=== PATIENT | male | born 1965 | race Caucasian/White ===

== ENCOUNTER 2021-02-26 07:27 | Outpatient (REF) | payer OTHER, SELFPAY ==
[2021-02-26 12:02] LABS: Estimated Average Glucose 352 mg/dL; Hemoglobin A1c % 13.9 %
== END 2021-02-26 07:28 | disposition home or self-care (01) ==
LOC: HO.HMGCLDS 07:27
PROVIDERS: PCP Nurse Practitioner Family; Visit Provider Nurse Practitioner Gerontology
DX: E11.42 Type 2 diabetes mellitus with diabetic polyneuropathy (principal)
CPT/HCPCS: 36415; 83036

== ENCOUNTER → 2021-03-02 07:26 | Outpatient (BNVA) | payer OTHER, SELFPAY | PROVIDERS: PCP Nurse Practitioner Family; Visit Provider Nurse Practitioner Gerontology | DX: E11.42 Type 2 diabetes mellitus with diabetic polyneuropathy (principal); E78.1 Pure hyperglyceridemia; E78.5 Hyperlipidemia, unspecified | CPT/HCPCS: 82947 ==

== ENCOUNTER 2021-03-20 11:31 | Outpatient (REF) | payer OTHER, SELFPAY ==
[2021-03-20 14:29] LABS: Creatinine Urine 111.81 mg/dL
[2021-03-20 14:32] LABS: Alanine Aminotransferase 18 U/L (0-40); Albumin Level 4.5 g/dL (3.5-5.0); Alkaline Phosphatase 65 U/L (39-117); Anion Gap 14 (12-20); Aspartate Amino Transferase 16 U/L (5-37); Bilirubin Total 0.4 mg/dL (0.0-1.0); Blood Urea Nitrogen 13 mg/dL (9-16); Calcium 9.6 mg/dL (8.4-10.2); Carbon Dioxide 26 mmol/L (22-29); Chloride 102 mmol/L (96-108); Cholesterol 164 mg/dL; Estimated Glomerular Filt Rate > 60; Glucose Fasting 161 mg/dL (60-99); HDL Cholesterol 53 mg/dL; LDL Cholesterol Calculated 89 mg/dl; Potassium 4.2 mmol/L (3.3-5.1); Sodium 138 mmol/L (135-145); Total Protein 7.1 g/dL (6.5-8.0); Triglycerides 111 mg/dL
[2021-03-21 06:12] LABS: LDL Cholesterol Direct 94 mg/dL (<100)
== END 2021-03-20 11:32 | disposition home or self-care (01) ==
LOC: HO.HMGCLDS 11:31
PROVIDERS: PCP Nurse Practitioner Family; Visit Provider Nurse Practitioner Gerontology
DX: E11.42 Type 2 diabetes mellitus with diabetic polyneuropathy (principal)
CPT/HCPCS: 36415; 80053; 80061; 82043; 83721

== ENCOUNTER → 2021-05-25 07:47 | Outpatient (BNVA) | payer OTHER, SELFPAY | PROVIDERS: PCP Nurse Practitioner Family; Visit Provider Nurse Practitioner Gerontology | DX: E11.42 Type 2 diabetes mellitus with diabetic polyneuropathy (principal); E78.1 Pure hyperglyceridemia; E78.5 Hyperlipidemia, unspecified | CPT/HCPCS: 82947 ==

== ENCOUNTER 2021-07-24 14:14 | Outpatient (REF) | payer OTHER, SELFPAY ==
--- NOTE | ~2021-07-24 | XR_ITS ---
EXAMINATION: XR ANKLE, RIGHT CLINICAL INFORMATION: Pain COMPARISON: Previous x-ray November 2012 TECHNIQUE: AP, lateral, and mortise views of the right ankle. FINDINGS: Bone alignment is normal. No acute fracture or dislocation is seen. There are well-corticated soft tissue ossifications inferior to the medial malleolus likely related to old trauma. There is mild arthritis at the tibiotalar joint. Ankle mortise is otherwise normal. There is an anterior talar osteophyte. There are small calcaneal spurs. Soft tissues are otherwise unremarkable. XR/XR ankle RT min 3V IMPRESSION: Evidence of old trauma to the medial ankle and mild degenerative changes.
== END 2021-07-24 14:15 | disposition home or self-care (01) ==
LOC: HO.HMGCX 14:14
PROVIDERS: PCP Nurse Practitioner Family; Visit Provider Nurse Practitioner Family
DX: M25.571 Pain in right ankle and joints of right foot (principal)
CPT/HCPCS: 73610

== ENCOUNTER → 2021-10-07 07:26 | Outpatient (BNVA) | payer OTHER, SELFPAY | PROVIDERS: PCP Nurse Practitioner Family; Visit Provider Nurse Practitioner Gerontology | DX: E11.42 Type 2 diabetes mellitus with diabetic polyneuropathy (principal); E78.1 Pure hyperglyceridemia; E78.5 Hyperlipidemia, unspecified | CPT/HCPCS: 82947 ==

== ENCOUNTER 2022-05-27 07:22 | Outpatient (REF) | payer OTHER, SELFPAY ==
[2022-05-27 11:43] LABS: Alanine Aminotransferase 25 U/L (0-40); Albumin Level 4.7 g/dL (3.5-5.0); Alkaline Phosphatase 72 U/L (39-117); Anion Gap 16 (12-20); Aspartate Amino Transferase 20 U/L (5-37); Bilirubin Total 0.6 mg/dL (0.0-1.0); Blood Urea Nitrogen 19 mg/dL (9-16); Calcium 9.9 mg/dL (8.4-10.2); Carbon Dioxide 26 mmol/L (22-29); Chloride 103 mmol/L (96-108); Cholesterol 228 mg/dL; Estimated Glomerular Filt Rate > 60; Glucose Fasting 183 mg/dL (60-99); HDL Cholesterol 40 mg/dL; Potassium 5.3 mmol/L (3.3-5.1); Sodium 140 mmol/L (135-145); Total Protein 7.7 g/dL (6.5-8.0); Triglycerides 482 mg/dL
[2022-05-27 12:12] LABS: Creatinine Urine 89.08 mg/dL; Microalbum/Creatinine Ratio Ur 7.8 ug/mg cr
[2022-05-29 01:56] LABS: LDL Cholesterol Direct 109 mg/dL (<100)
== END 2022-05-27 07:23 | disposition home or self-care (01) ==
LOC: HO.HMGCLDS 07:22
PROVIDERS: PCP Nurse Practitioner Family; Visit Provider Nurse Practitioner Gerontology
DX: E11.42 Type 2 diabetes mellitus with diabetic polyneuropathy (principal)
CPT/HCPCS: 36415; 80053; 80061; 82043; 83721

== ENCOUNTER 2022-06-10 06:46 | Outpatient (REF) | payer OTHER, SELFPAY ==
[2022-06-10 11:38] LABS: Estimated Average Glucose 237 mg/dL; Hemoglobin A1c % 9.9 %
[2022-06-10 11:40] LABS: Potassium 4.3 mmol/L (3.3-5.1)
[2022-06-10 11:47] LABS: Anion Gap 15 (12-20); Carbon Dioxide 27 mmol/L (22-29); Chloride 104 mmol/L (96-108); Potassium 4.3 mmol/L (3.3-5.1); Sodium 142 mmol/L (135-145)
[2022-06-10 11:58] LABS: Prostate Specific Antigen Scr 4.57 ng/mL (<0.05-4.0)
== END 2022-06-10 06:47 | disposition home or self-care (01) ==
LOC: HO.HMGCLDS 06:46
PROVIDERS: Internal Medicine; PCP Nurse Practitioner Family; Visit Provider Nurse Practitioner Family
DX: E11.42 Type 2 diabetes mellitus with diabetic polyneuropathy (principal); E87.5 Hyperkalemia; R97.20 Elevated prostate specific antigen [PSA]; Z12.5 Encounter for screening for malignant neoplasm of prostate
CPT/HCPCS: 36415; 80051; 83036; 84132; 84153

== ENCOUNTER 2022-08-17 10:26 | Outpatient (REF) | payer OTHER, SELFPAY ==
[2022-08-17 10:33] VITALS: BMI 29.6
[2022-08-17 10:34] VITALS: BP 116/76; PULSE 73; RESP 16; TEMP 22.4; O2SAT 98
[2022-08-17 11:22] VITALS: BP 117/76; PULSE 74; RESP 16; O2SAT 97
--- NOTE | 2022-08-17 11:45 | P.OP_ITS ---
Operative Note Operative Note Date of Service: 08/17/22 Narrative: Preoperative diagnosis:Pilar cyst Postoperative diagnosis:same Procedure:Excision of pilar cyst Surgeon: Trey Fields MD Data Entry Technician: none Anesthesia:Lidocaine 2% with epi Indications for procedure:56 year old male with 2 cm pilar cyst of the midline frontal scalp Operative findings:2 cm pilar cyst frontal scalp Specimen:pilar cyst Estimated blood loss:<1 ml Complications:none Procedure details: Patient was brought to the minor surgery suite placed in a supine position. The site of surgery was confirmed by the patient in the frontal scalp. After ensuring informed consent, the skin was prepped with Betadine and draped in a sterile fashion. Local anesthesia was then infiltrated in a longitudinal fashion over the cyst. Incision was then made with a 15 blade and carried out through subcutaneous tissue up to the cyst wall. Gentle dissection with a mosquito hemostat was then used to dissect the cyst from the surrounding subcutaneous tissue. The cyst was completely excised intact and sent to pathology for further examination. Light pressure was held to maintain hemostasis. Skin was then closed using interrupted 3-0 Prolene sutures. Bacitracin was then applied. The patient tolerated the procedure well. He was discharged to home in stable condition.
== END 2022-08-17 10:27 | disposition home or self-care (01) ==
LOC: HO.MS 10:26
PROVIDERS: PCP Nurse Practitioner Family; Visit Provider Surgery
PROC: (CPT 11422; principal; 2022-08-17 11:00)
DX: L72.11 Pilar cyst (principal)
CPT/HCPCS: 11422; 88304

== ENCOUNTER 2022-09-13 07:21 | Outpatient (REF) | payer OTHER, SELFPAY ==
[2022-09-13 11:30] LABS: MANUAL DIFF FLAG NO
[2022-09-13 11:38] LABS: Appearance Urine Clear; Color Urine Yellow; Glucose Urine UA >=1000 mg/dL (Negative); Leukocyte Esterase Urine Negative (Negative); Nitrite Urine Negative (Negative); PH 5.5 (5.0-9.0); Specific Gravity - Urine >= 1.030 (1.005-1.025); UMIC TRIGGER UACC YES; Urine Blood Negative (Negative); Urine Ketones Negative (Negative); Urine Protein Negative (Neg-Trace)
[2022-09-13 11:44] LABS: Bacteria Urine None Seen (None Seen); Hyaline Casts Urine 0-2 /LPF (0-2); RBC Urine 0-2 /HPF (0-2); Squamous Epithelial Cell Urine 0-2 /HPF (0-2); WBC Urine 0-5 /HPF (0-5)
[2022-09-13 11:49] LABS: Basophils Absolute Auto 0.1 X10*3/uL (0.0-0.2); Basophils Percent Auto 1.7 % (0-2); Eosinophils Absolute Auto 0.1 X10*3/uL (0.0-0.4); Eosinophils Percent Auto 1.4 % (0-4); Hematocrit 41.7 % (42.0-52.0); Hemoglobin 13.5 g/dl (14.0-18.0); Imm Gran Abs Auto 0.02 X10*3/uL (0.00-0.03); Imm Gran Pct Auto 0.5 % (0.0-0.4); Lymphocytes Absolute Auto 1.6 X10*3/uL (1.2-4.9); Lymphocytes Percent Auto 37.1 % (20-40); Mean Corpuscular HGB Conc 32.4 g/dl (31.0-36.0); Mean Corpuscular Hemoglobin 27.9 pg (27.0-33.0); Mean Corpuscular Volume 86.2 fL (80.0-98.0); Mean Platelet Volume 10.8 fL (9.4-12.4); Monocytes Absolute Auto 0.4 X10*3/uL (0.1-1.2); Neutrophils Absolute Auto 2.1 x10*3/uL (2.0-8.3); Neutrophils Percent Auto 49.3 % (45-73); Platelet Count 228 X10*3/uL (160-400); Red Blood Count 4.84 X10*6/uL (4.60-5.80); Red Cell Distribution Width 12.6 % (11.0-16.0); White Blood Count 4.2 X10*3/uL (4.8-10.8)
[2022-09-13 12:15] LABS: Alanine Aminotransferase 24 U/L (0-40); Albumin Level 4.5 g/dL (3.5-5.0); Alkaline Phosphatase 60 U/L (39-117); Anion Gap 14 (12-20); Aspartate Amino Transferase 18 U/L (5-37); Bilirubin Total 0.4 mg/dL (0.0-1.0); Blood Urea Nitrogen 18 mg/dL (9-16); Calcium 9.6 mg/dL (8.4-10.2); Carbon Dioxide 26 mmol/L (22-29); Chloride 106 mmol/L (96-108); Estimated Glomerular Filt Rate > 60; Glucose Fasting 147 mg/dL (60-99); Potassium 4.4 mmol/L (3.3-5.1); Sodium 142 mmol/L (135-145); Total Protein 7.2 g/dL (6.5-8.0)
[2022-09-13 12:31] LABS: Estimated Average Glucose 197 mg/dL; Hemoglobin A1c % 8.5 %
[2022-09-13 12:37] LABS: Alanine Aminotransferase 23 U/L (0-40); Albumin Level 4.4 g/dL (3.5-5.0); Alkaline Phosphatase 55 U/L (39-117); Anion Gap 12 (12-20); Aspartate Amino Transferase 17 U/L (5-37); Bilirubin Total 0.5 mg/dL (0.0-1.0); Blood Urea Nitrogen 17 mg/dL (9-16); Calcium 9.6 mg/dL (8.4-10.2); Carbon Dioxide 27 mmol/L (22-29); Chloride 106 mmol/L (96-108); Cholesterol 156 mg/dL; Estimated Glomerular Filt Rate > 60; Glucose Fasting 142 mg/dL (60-99); HDL Cholesterol 54 mg/dL; LDL Cholesterol Calculated 77 mg/dl; PSA,Total (Free>4and<10) 5.42 ng/mL (0.00-4.00); Potassium 4.4 mmol/L (3.3-5.1); Sodium 141 mmol/L (135-145); Triglycerides 128 mg/dL
[2022-09-13 12:42] LABS: TSH reflex Free T4 2.72 uIU/mL (0.32-4.0)
[2022-09-14 09:10] LABS: Free Prostate Spec Ag 0.8 ng/mL; Percent Free Prostate Spec Ag 16 % (calc) (>25); Prostate Specific Ag Total 4.9 ng/mL (< OR = 4.0)
[2022-09-21 11:57] LABS: Testosterone, Total 565 ng/dL (250-1100)
== END 2022-09-13 07:22 | disposition home or self-care (01) ==
LOC: HO.HMGCLDS 07:21
PROVIDERS: Absent Provider Urology; PCP Nurse Practitioner Family; Visit Provider Nurse Practitioner Family
DX: Z12.5 Encounter for screening for malignant neoplasm of prostate (principal); E11.69 Type 2 diabetes mellitus with other specified complication; E11.42 Type 2 diabetes mellitus with diabetic polyneuropathy; E78.5 Hyperlipidemia, unspecified; N52.1 Erectile dysfunction due to diseases classified elsewhere
CPT/HCPCS: 36415; 80053; 80061; 81001; 83036; 84153; 84154; 84402; 84403; 84443; 85025

== ENCOUNTER 2022-10-20 11:20 | Outpatient (REF) | payer OTHER, SELFPAY ==
[2022-10-20 11:29] VITALS: BP 141/82; PULSE 80; RESP 16; TEMP 36.2; O2SAT 100; BMI 29.6
--- NOTE | 2022-10-20 12:25 | W.PM.OPN ---
Operative Note Operative Note Date of Service: 10/20/22 Narrative: Preoperative diagnosis: Elevated PSA Postoperative diagnosis: Elevated PSA Procedure: 1. transrectal ultrasound measurement of prostate 2. transrectal ultrasound-guided pudendal nerve block 3. transrectal ultrasound-guided prostate biopsy 12 core Surgeon: Dr. Grant Fitch Anesthetic: Local Indications for procedure: Elevated PSA 09/14 4.9 16% Procedure: After informed consent was verified, the patient was brought into the procedure area and lay left-hand side down on the table. Patient identity confirmed. Perioperative antibiotics confirmed. Safety pause time out performed. JULIO performed to dilate rectal sphincter Iodine 10cc with Gel was placed per rectum Ultrasound probe was placed per rectum The prostate was measured in 3 dimensions Total volume equals 55 gm No cystic structures were noted No calcifications were noted at the surgical margin The prostate was otherwise homogeneous in nature An ultrasound-guided pudendal nerve block was performed using 10 cc of 1% lidocaine. 8 cc was placed at the base and 2 cc of the apex. A 12 core biopsy was performed with 6 cores each side. Two cores were taken at the apex, mid and base. Cores were spaced between lateral and medial. He tolerated the procedure well. Was able to ambulate to bathroom after 5 minutes. Printed instructions regarding antibiotic use and common side effects such as low-grade temperature, potential infection and bleeding were given Pathology: 12 core prostate biopsy.
[2022-10-20 12:30] VITALS: BP 133/68; PULSE 81; RESP 16; O2SAT 98
== END 2022-10-20 11:21 | disposition home or self-care (01) ==
LOC: HO.MS 11:20
PROVIDERS: PCP Nurse Practitioner Family; Visit Provider Urology
PROC: (CPT 55700; principal; 2022-10-20 12:00)
DX: R97.20 Elevated prostate specific antigen [PSA] (principal); N42.32 Atypical small acinar proliferation of prostate
CPT/HCPCS: 55700; 76942; 88305; 88344

== ENCOUNTER 2022-12-28 08:01 | Outpatient (REF) | payer OTHER, SELFPAY ==
[2022-12-28 11:39] LABS: MANUAL DIFF FLAG NO
[2022-12-28 11:52] LABS: Basophils Absolute Auto 0.1 X10*3/uL (0.0-0.2); Basophils Percent Auto 1.2 % (0-2); Eosinophils Percent Auto 0.6 % (0-4); Hemoglobin 13.9 g/dl (14.0-18.0); Imm Gran Abs Auto 0.02 X10*3/uL (0.00-0.03); Imm Gran Pct Auto 0.4 % (0.0-0.4); Lymphocytes Absolute Auto 1.6 X10*3/uL (1.2-4.9); Lymphocytes Percent Auto 32.7 % (20-40); Mean Corpuscular HGB Conc 33.1 g/dl (31.0-36.0); Mean Corpuscular Hemoglobin 28.1 pg (27.0-33.0); Mean Platelet Volume 10.8 fL (9.4-12.4); Monocytes Absolute Auto 0.5 X10*3/uL (0.1-1.2); Monocytes Percent Auto 9.1 % (2-11); Neutrophils Absolute Auto 2.8 x10*3/uL (2.0-8.3); Platelet Count 238 X10*3/uL (160-400); Red Blood Count 4.94 X10*6/uL (4.60-5.80); Red Cell Distribution Width 13.2 % (11.0-16.0); White Blood Count 4.9 X10*3/uL (4.8-10.8)
[2022-12-28 12:03] LABS: Appearance Urine Clear; Color Urine Yellow; Glucose Urine UA >=1000 mg/dL (Negative); Leukocyte Esterase Urine Negative (Negative); Nitrite Urine Negative (Negative); Specific Gravity - Urine >= 1.030 (1.005-1.025); UMIC TRIGGER UACC YES; Urine Blood Negative (Negative); Urine Ketones Negative (Negative); Urine Protein Negative (Neg-Trace)
[2022-12-28 12:09] LABS: Estimated Average Glucose 237 mg/dL; Hemoglobin A1c % 9.9 %
[2022-12-28 12:20] LABS: Bacteria Urine None Seen (None Seen); Hyaline Casts Urine 0-2 /LPF (0-2); RBC Urine 0-2 /HPF (0-2); Squamous Epithelial Cell Urine 0-2 /HPF (0-2); WBC Urine 0-5 /HPF (0-5)
[2022-12-28 12:28] LABS: Alanine Aminotransferase 28 U/L (0-40); Albumin Level 4.6 g/dL (3.5-5.0); Alkaline Phosphatase 57 U/L (39-117); Anion Gap 16 (12-20); Aspartate Amino Transferase 20 U/L (5-37); Bilirubin Total 0.7 mg/dL (0.0-1.0); Blood Urea Nitrogen 12 mg/dL (9-16); Calcium 9.7 mg/dL (8.4-10.2); Carbon Dioxide 26 mmol/L (22-29); Chloride 104 mmol/L (96-108); Cholesterol 197 mg/dL; Estimated Glomerular Filt Rate > 60; Glucose Fasting 204 mg/dL (60-99); HDL Cholesterol 46 mg/dL; LDL Cholesterol Calculated 117 mg/dl; Potassium 4.9 mmol/L (3.3-5.1); Sodium 141 mmol/L (135-145); Total Protein 7.3 g/dL (6.5-8.0); Triglycerides 172 mg/dL
[2022-12-28 12:47] LABS: TSH reflex Free T4 2.43 uIU/mL (0.32-4.0)
== END 2022-12-28 08:02 | disposition home or self-care (01) ==
LOC: HO.HMGCLDS 08:01
PROVIDERS: PCP Nurse Practitioner Family; Visit Provider Nurse Practitioner Family
DX: E11.42 Type 2 diabetes mellitus with diabetic polyneuropathy (principal); E78.5 Hyperlipidemia, unspecified
CPT/HCPCS: 36415; 80053; 80061; 81001; 81003; 83036; 84443; 85025

== ENCOUNTER 2022-12-30 08:37 | Day surgery (SDC) | payer OTHER, SELFPAY ==
[2022-12-27 12:18] VITALS: BMI 30.2
--- NOTE | 2022-12-29 13:13 | P.CONAN_ITS ---
Documented by User: Ayana Mendez NP 12/29/22 13:16 HPI - Anesthesia Eval Consult details Narrative: 57yo M for Colonoscopy 12/29/21 - Seen by PCP - Tenderness near hip where previously had shingles. No rash/blisters. PMFSH Active Problems Active Problems: All Active Problems (Updated 12/29/22 @ 11:29 by Trey Gregg, [facility]) Shingles (Acute) Uncontrolled diabetes mellitus with hyperglycemia (Acute) Pain and swelling of right ankle (Acute) Acute pain of right foot (Acute) Gout of right ankle (Acute) Hyperkalemia (Acute) Dyslipidemia (Acute) Screening for prostate cancer (Acute) Screening for colon cancer (Acute) Dermoid cyst of head (Acute) Elevated PSA (Acute) Pilar cyst of scalp (Acute) Family history of cancer (Acute) Erectile dysfunction associated with type 2 diabetes mellitus (Acute) BPH loc w urin obs/LUTS (Acute) LJ (obstructive sleep apnea) (Acute) Type 2 diabetes mellitus with polyneuropathy (Acute) Hyperlipidemia LDL goal <100 (Acute) Hypertriglyceridemia (Acute) Past Medical History Medical History Back pain with history of spinal surgery Bronchitis Hyperlipidemia LDL goal <100 Hyperparathyroidism Hypertriglyceridemia Neuropathy LJ (obstructive sleep apnea) RLS (restless legs syndrome) Tendonitis Type 2 diabetes mellitus with polyneuropathy Family History Family History Father Colon cancer Mother Breast cancer Diabetes mellitus Sister Brain cancer Sister No problems noted. Sister No problems noted. Sister No problems noted. Brother Substance use disorder Brother No problems noted. Brother No problems noted. Son No problems noted. Surgical History Surgical History H/O colonoscopy History of anterior cruciate ligament surgery History of esophagogastroduodenoscopy (EGD) History of rotator cuff surgery Hx of excision of mass Hx of removal of cyst (08/17/22) Social History Social History Housing: House Patient Tobacco Use Status: Former Tobacco user Quit Date: 20 years ago Tobacco use type: Cigarette Cigarettes Per Day: 10 Years Smoked: 15 e-Cigarette/Vaping Use: Never Used Second Hand Smoke Exposure: No Are you DNR?: No Advance Directives: No Advance Directives Information Provided: Yes Nutrition Risks: No Nutritional Risk service: No Current occupational status: employed Current occupation: [employer] Current occupational exposures/hazards: No Cognitive needs: No Hearing needs: No Vision needs: No Meds Allergies Allergy/AdvReac Type Severity Reaction Status Date / Time No Known Allergies Allergy Verified 12/29/22 11:27 [No Known Allergies*] Home Medications Medication Instructions Recorded Confirmed Last Taken Type aspirin 81 mg tablet,delayed 81 mg PO DAILY 10/07/21 12/29/22 Unknown History release (Adult Aspirin Regimen) cetirizine 10 mg tablet (Zyrtec) 10 mg PO DAILY PRN Allergy Symptoms 10/07/21 12/29/22 Unknown History insulin degludec 200 unit/mL (3 40 unit subcut BEDTIME 12/27/22 12/29/22 Unknown History mL) subcutaneous pen trazodone 150 mg tablet 150 mg PO BEDTIME 12/29/22 12/29/22 Unknown History Exam Exam Date and Time: December 29, 2022 1313 Height,Weight and Vital Signs: Height 6 ft 5 in Weight 115.439 kg Pertinent Lab Results Pertinent Lab Results: Laboratory Tests 12/28/22 12/28/22 08:08 08:08 WBC 4.9 Hgb 13.9 L Hct 42.0 Plt Count 238 Sodium 141 Potassium 4.9 Chloride 104 Carbon Dioxide 26 BUN 12 Creatinine 1.16 Assessment and Plan Assessment Anesthesia Assessment: Chart Reviewed Documented by User: Mary Patten MD 12/30/22 09:04 [facility], [facility] Past Medical History Medical History Back pain with history of spinal surgery Bronchitis Hyperlipidemia LDL goal <100 Hyperparathyroidism Hypertriglyceridemia Neuropathy JL (obstructive sleep apnea) RLS (restless legs syndrome) Tendonitis Type 2 diabetes mellitus with polyneuropathy Functional capacity: independent ambulation Family History Family History Father Colon cancer Mother Breast cancer Diabetes mellitus Sister Brain cancer Sister No problems noted. Sister No problems noted. Sister No problems noted. Brother Substance use disorder Brother No problems noted. Brother No problems noted. Son No problems noted. Family history of problems with anesthesia: No Surgical History Surgical History H/O colonoscopy History of anterior cruciate ligament surgery History of esophagogastroduodenoscopy (EGD) History of rotator cuff surgery Hx of excision of mass Hx of removal of cyst (08/17/22) History of Problems with Anesthesia: No Social History Social History Housing: House Patient Tobacco Use Status: Former Tobacco user Quit Date: 20 years ago Tobacco use type: Cigarette Cigarettes Per Day: 10 Years Smoked: 15 e-Cigarette/Vaping Use: Never Used Second Hand Smoke Exposure: No Are you DNR?: No Advance Directives: No Advance Directives Information Provided: Yes Nutrition Risks: No Nutritional Risk service: No Current occupational status: employed Current occupation: [employer] Current occupational exposures/hazards: No Cognitive needs: No Hearing needs: No Vision needs: No Meds Allergies Allergy/AdvReac Type Severity Reaction Status Date / Time No Known Allergies Allergy Verified 12/29/22 11:27 [No Known Allergies*] Home Medications Medication Instructions Recorded Confirmed Last Taken Type aspirin 81 mg tablet,delayed 81 mg PO DAILY 10/07/21 12/29/22 Unknown History release (Adult Aspirin Regimen) cetirizine 10 mg tablet (Zyrtec) 10 mg PO DAILY PRN Allergy Symptoms 10/07/21 12/29/22 Unknown History insulin degludec 200 unit/mL (3 40 unit subcut BEDTIME 12/27/22 12/29/22 Unknown History mL) subcutaneous pen trazodone 150 mg tablet 150 mg PO BEDTIME 12/29/22 12/29/22 Unknown History Exam Airway Mallampati Class: II TM Dist: >3cm Neck ROM: Full Heart: RRR Lungs: CTA Assessment and Plan Final Anesthetic Review Family History of Problems with Anesthesia: No History of Problems with Anesthesia: No NPO: Yes ASA Class: II Final Preanesthetic Review: No Changes in Pt Med Stat, Meds/Allgs Chart Reviewed, Consent Obtained/Reviewed and Anes Risks/Benef Reviewed Patient Risk: Low Procedure Risk: Low Anesthetic Plan Anesthetic Plan: MAC: Disposition: Standard PACU
--- NOTE | 2022-12-30 08:09 | MHC.SHP ---
Pre-Procedural Eval Section A Date of Service: 12/30/22 Section B Chief Complaint: Screening Details of Present Illness: Medical History Back pain with history of spinal surgery Bronchitis Hyperlipidemia LDL goal <100 Hyperparathyroidism Hypertriglyceridemia Neuropathy LJ (obstructive sleep apnea) RLS (restless legs syndrome) Tendonitis Type 2 diabetes mellitus with polyneuropathy Surgical History History of anterior cruciate ligament surgery History of rotator cuff surgery Present Medications: see Short Stay Collaborative assessment Allergies: Allergies Allergy/AdvReac Type Severity Reaction Status Date / Time No Known Allergies Allergy Verified 12/29/22 11:27 [No Known Allergies*] Review of Systems Review of Systems Comment: 10 point ROS negative Exam Exam Comment: Gen appear: No acute distress HEENT: no icterus Chest: No overt resp distress Abd: soft, nontender, nondistended Psych: Stable affect, answering questions appropriately Neuro: A/Ox3 noted to move all extremities spontaneously Ext: no peripheral edema Plan Diagnosis/Plan: Unchanged I have reviewed the history and physical and performed a pertinent physical examination on my patient. No changes have occurred unless specified. Time Spent With Patient Time: Total time managing care of this patient today ____ minutes.
[2022-12-30 08:39] VITALS: BP 114/87; PULSE 78; RESP 17; TEMP 36.7; O2SAT 98
[2022-12-30 08:48] LABS: Glucose, Whole Blood 131 mg/dL (60-115)
--- NOTE | 2022-12-30 08:52 | P.OP_ITS ---
Operative Note Operative Note Date of Service: 12/30/22 Narrative: Procedure: Colonoscopy Indication: Personal history of polyps; Family history of colon cancer Endoscopist: Gay Galdamez MD Anesthesia Provider: Dr Mary Browning Anesthesia type: MAC Instrument: Expert [id number] Consent: Indication, risks vs benefits, and alternatives were discussed with the patient who gave written informed consent to proceed. EKG, pulse, pulse oximetry and blood pressure were monitored throughout the procedure. Please see anesthesia flowsheet. Procedure: The patient was brought to the procedure room and placed in the left lateral decubitus position. IV medications were administered by the anesthesia provider in attendance. A digital rectal exam was performed which was abnormal due to finding of perianal tag. The distal cap was affixed to the tip of the scope and the colonoscope was then inserted through the anus and advanced through the colon to the cecum at 75 cm,and terminal ileum. Mucosa was carefully examined under high definition white light as the instrument was slowly withdrawn in a retrograde panoramic fashion. Retroflexion was performed in ascending colon and rectum. The procedure was not difficult. There were no immediate obvious complications. The quality of the prep was BBPS: 3+3+3 = excellent Withdrawal time 13 minutes. Limitations: No limitations. Findings: Mucosa: Normal to cecum and terminal ileum. Protruding lesions: * 1 sessile polyp of size 8 mm in ascending colon. Cold snare polypectomy was performed. The polyp was completely removed but not retrieved. * 1 sessile polyp of size 6 mm in transverse colon. Cold snare polypectomy was performed. The polyp was completely removed and retrieved. * Medium internal hemorrhoids without stigmata of recent bleeding. Excavated lesions: * Moderate diverticulosis of left sided colon. Impression: 1. Normal colon and terminal ileum mucosa 2. Total of 2 polyps removed from ascending (not retrieved) and transverse colon. 3. Diverticulosis 4. Internal hemorrhoids Recommendations: - Follow path results. - Repeat colonoscopy in 5 years due to fam hx of CRC.
[2022-12-30] MEDS: Lactated Ringers 1,000 ML 100 ML IVCONT (09:05)
[2022-12-30 10:38] VITALS: BP 105/58; PULSE 81; RESP 16; TEMP 36.4; O2SAT 98
[2022-12-30 10:53] VITALS: BP 111/76; PULSE 77; RESP 18; TEMP 36.4; O2SAT 98
--- NOTE | 2022-12-30 13:28 | HO.POSTANES ---
Post Anesthesia Evaluation Post Anesthesia Evaluation Vital Signs: Vital Signs Temp Pulse Resp BP Pulse Ox O2 Del Method 12/30/22 10:53 97.6 F 77 18 111/76 98 Room Air 12/30/22 10:38 97.6 F 81 16 105/58 L 98 Room Air 12/30/22 08:39 98.1 F 78 17 114/87 98 Room Air Anesthesia: Monitored Mental Status: Awake Pain Control: Satisfactory Nausea/Vomiting: None Hydration: Adequate Anesthesia-Related Issues: No Anes. Related Issues
== END 2022-12-30 11:11 | disposition home or self-care (01) ==
PROVIDERS: PCP Nurse Practitioner Family; Visit Provider Internal Medicine
PROC: 0DJD8ZZ Inspection of Lower Intestinal Tract, Via Natural or Artificial Opening Endoscopic (ICD-10-PCS; CPT 45378; principal; 2022-12-30 09:50)
DX: Z12.11 Encounter for screening for malignant neoplasm of colon (principal); Z86.010 Personal history of colon polyps; Z80.0 Family history of malignant neoplasm of digestive organs; D12.3 Benign neoplasm of transverse colon; K63.5 Polyp of colon; K57.30 Diverticulosis of large intestine without perforation or abscess without bleeding; K64.8 Other hemorrhoids; K64.4 Residual hemorrhoidal skin tags; K21.9 Gastro-esophageal reflux disease without esophagitis; E78.1 Pure hyperglyceridemia; E21.3 Hyperparathyroidism, unspecified; E78.5 Hyperlipidemia, unspecified; E11.42 Type 2 diabetes mellitus with diabetic polyneuropathy; G47.33 Obstructive sleep apnea (adult) (pediatric); G25.81 Restless legs syndrome; Z79.85 Long-term (current) use of injectable non-insulin antidiabetic drugs; Z79.82 Long term (current) use of aspirin; Z87.891 Personal history of nicotine dependence; Z79.899 Other long term (current) drug therapy
CPT/HCPCS: 45385; 82947; 88305

== ENCOUNTER → 2023-01-18 07:56 | Outpatient (BNVA) | payer OTHER, SELFPAY | PROVIDERS: PCP Nurse Practitioner Family; Referring Provider Nurse Practitioner Family; Visit Provider Nurse Practitioner Family | DX: Z13.89 Encounter for screening for other disorder (principal) ==

== ENCOUNTER → 2023-02-10 08:47 | Outpatient (BNVA) | payer OTHER, SELFPAY | PROVIDERS: PCP Nurse Practitioner Family; Visit Provider Internal Medicine Endocrinology, Diabetes & Metabolism | DX: E11.42 Type 2 diabetes mellitus with diabetic polyneuropathy (principal); E11.65 Type 2 diabetes mellitus with hyperglycemia | CPT/HCPCS: 82947 ==

== ENCOUNTER 2023-03-31 08:02 | Outpatient (REF) | payer OTHER, SELFPAY ==
[2023-03-31 11:40] LABS: Appearance Urine Clear; Color Urine Yellow; Glucose Urine UA >=1000 mg/dL (Negative); Leukocyte Esterase Urine Negative (Negative); Nitrite Urine Negative (Negative); PH 5.5 (5.0-9.0); Specific Gravity - Urine >= 1.030 (1.005-1.025); UMIC TRIGGER UACC YES; Urine Blood Negative (Negative); Urine Ketones Negative (Negative); Urine Protein Negative (Neg-Trace)
[2023-03-31 11:47] LABS: Bacteria Urine None Seen (None Seen); Hyaline Casts Urine 0-2 /LPF (0-2); RBC Urine 0-2 /HPF (0-2); Squamous Epithelial Cell Urine 0-2 /HPF (0-2); WBC Urine 0-5 /HPF (0-5)
[2023-03-31 12:09] LABS: Anion Gap 12 (12-20); Carbon Dioxide 26 mmol/L (22-29); Chloride 106 mmol/L (96-108); Cholesterol 126 mg/dL; HDL Cholesterol 52 mg/dL; LDL Cholesterol Calculated 55 mg/dl; Potassium 4.7 mmol/L (3.3-5.1); Sodium 139 mmol/L (135-145); Triglycerides 98 mg/dL
[2023-04-05 19:38] LABS: Glutamic acid decarboxylase Ab <5 IU/mL (<5)
== END 2023-03-31 08:03 | disposition home or self-care (01) ==
LOC: HO.HMGCLDS 08:02
PROVIDERS: Absent Provider Internal Medicine Endocrinology, Diabetes & Metabolism; PCP Nurse Practitioner Family; Visit Provider Nurse Practitioner Family
DX: E11.65 Type 2 diabetes mellitus with hyperglycemia (principal); E11.42 Type 2 diabetes mellitus with diabetic polyneuropathy; E87.5 Hyperkalemia
CPT/HCPCS: 36415; 80051; 80061; 81001; 86341

== ENCOUNTER → 2023-04-01 07:51 | Outpatient (BNVA) | payer OTHER, SELFPAY | PROVIDERS: PCP Nurse Practitioner Family; Visit Provider Registered Nurse Diabetes Educator ==

== ENCOUNTER 2023-05-06 08:01 | Outpatient (REF) | payer OTHER, SELFPAY ==
[2023-05-06 11:38] LABS: Appearance Urine Clear; Color Urine Yellow; Glucose Urine UA >=1000 mg/dL (Negative); Leukocyte Esterase Urine Negative (Negative); Nitrite Urine Negative (Negative); PH 5.5 (5.0-9.0); Specific Gravity - Urine >= 1.030 (1.005-1.025); UMIC TRIGGER UACC YES; Urine Blood Negative (Negative); Urine Ketones Negative (Negative); Urine Protein Negative (Neg-Trace)
[2023-05-06 11:42] LABS: Bacteria Urine None Seen (None Seen); Hyaline Casts Urine 0-2 /LPF (0-2); RBC Urine 0-2 /HPF (0-2); Squamous Epithelial Cell Urine 0-2 /HPF (0-2); WBC Urine 0-5 /HPF (0-5)
[2023-05-06 12:57] LABS: Prostate Specific Antigen 2.72 ng/mL (<0.05-4.0)
[2023-05-06 13:12] LABS: PSA,Total (Free>4and<10) 2.75 ng/mL (0.00-4.00)
== END 2023-05-06 08:02 | disposition home or self-care (01) ==
LOC: HO.HMGCLDS 08:01
PROVIDERS: Absent Provider Urology; PCP Nurse Practitioner Family; Visit Provider Nurse Practitioner Family
DX: Z12.5 Encounter for screening for malignant neoplasm of prostate (principal); N40.1 Benign prostatic hyperplasia with lower urinary tract symptoms; R97.20 Elevated prostate specific antigen [PSA]
CPT/HCPCS: 36415; 81001; 84153

== ENCOUNTER 2023-05-06 13:41 | Outpatient (AMB) | payer OTHER, SELFPAY ==
--- NOTE | 2023-05-06 13:43 | MHC.OFFVIS ---
Intake Intake Visit Reasons: 6M PSA/Med(PSA?) Intake Note: Patient is present for Follow Up PSA Urology Med: Doxazosin, Finasteride, Tadalafil Antibiotic Allergy: None Blood Thinner: Aspirin Allergies No Known Allergies [No Known Allergies*] Allergy (Verified 05/06/23 13:45) HPI HPI Comments History of Present Illness Details Damien is a pleasant male. He is a patient Dr. Kong. He seen for the following urologic conditions - elevated PSA - erectile dysfunction with diabetes - lower urinary tract symptoms PSA down to 2.7 on finasteride Has had some decline in libido. Would change finasteride to Tuesday, Tuesday, Tuesday. Also question of decline in erectile performance. Will increase tadalafil to 10 mg daily +20 mg on demand Elevated PSA Labs - 06/14 4.6, 09/14 4.9 16% Discussed risk factors no family history Prostate biopsy 10/14 3 cores small acinar proliferation Current therapy finasteride - 05/15 2.7 Lower urinary tract symptoms Urinary urgency and frequency, nocturia x3, weakness of stream, hesitancy No prior therapy Given combination with erectile dysfunction initiation daily tadalafil Erectile dysfunction setting of diabetes Diabetic diagnosis 2014 On combination therapy - 5mg daily tadalaifil with 20mg on demand Recent HbA1c 9.9 with elevated cholesterol Background of sleep apnea under adjustment Labs 09/14 T565 [facility] Medical History Back pain with history of spinal surgery Bronchitis Hyperlipidemia LDL goal <100 Hyperparathyroidism Hypertriglyceridemia Neuropathy LJ (obstructive sleep apnea) RLS (restless legs syndrome) Tendonitis Tubular adenoma Type 2 diabetes mellitus with polyneuropathy Surgical History H/O colonoscopy History of anterior cruciate ligament surgery History of esophagogastroduodenoscopy (EGD) History of rotator cuff surgery Hx of excision of mass Hx of removal of cyst (08/17/22) Family History Father Colon cancer Mother Breast cancer Diabetes mellitus Sister Brain cancer Sister No problems noted. Sister No problems noted. Sister No problems noted. Brother Substance use disorder Brother No problems noted. Brother No problems noted. Son No problems noted. Social History Housing: House Patient Tobacco Use Status: Former Tobacco user Quit Date: 20 years ago Tobacco use type: Cigarette Cigarettes Per Day: 10 Years Smoked: 15 e-Cigarette/Vaping Use: Never Used Second Hand Smoke Exposure: No service: No Current occupational status: employed Current occupation: [employer] Current occupational exposures/hazards: No Cognitive needs: No Hearing needs: No Vision needs: No Review of Systems Const Denies chills and Denies fever(s) Card Reports no additional complaints and Denies syncope Resp Denies cough GI Denies abdominal pain and Denies heartburn Reports as per HPI and Denies change in libido Neuro Denies syncope Psych Denies change in libido Endo Denies change in libido Physical Exam Const General: cooperative, healthy appearing, comfortable and no acute distress Orientation/consciousness: patient oriented x3 HEENT Face and sinus: Yes normal facial exam Mouth: moist mucous membranes Neck Neck: Yes normal visual inspection, Yes full ROM and Yes trachea midline Chest Chest palpation & inspection: normal inspection of the chest Resp Effort & Inspection: normal respiratory effort, able to speak in complete sentences and no respiratory distress GI Inspection: Yes normal to inspection Back/Spine/Pelvis Cervical Spine: normal cervical lordosis Thoracic/Lumbar Spine: thoracic and lumbar spine normal to inspection Skin General skin exam: no rashes or lesions noted Neuro General: patient oriented x3, gait normal, tone normal and moves all extremities Extrem General: Yes normal to inspection and Yes capillary refill normal Assessment & Plan Assessment & Plan (1) Elevated PSA: Comment: 10/14 Prostate Biopsy 3 core MIKIE Code(s): R97.20 - Elevated prostate specific antigen [PSA] (2) Erectile dysfunction associated with type 2 diabetes mellitus: Code(s): E11.69 - Type 2 diabetes mellitus with other specified complication; N52.1 - Erectile dysfunction due to diseases classified elsewhere Plan Six month follow-up PSA Orders: Orders Prostate Specific Antigen Today R97.20 - Elevated prostate specific antigen [PSA] PSA,Total (Free>4and<10) 6 Months R97.20 - Elevated prostate specific antigen [PSA] Patient Instructions: Imaging studies, laboratory and physical exam results were discussed and reviewed in detail. No major barriers to patient understanding were identified. An opportunity to ask questions regarding the treatment plan was provided. All questions were answered. The patient expressed understanding and agreement with the above treatment plan. The patient is aware they should contact our office by phone for worsening of their current condition or the appearance of new urologic symptoms. Compliance is encouraged with any medications and followup testing that is ordered. It is a privilege to participate in the urologic care of your patient. If you have any questions or concerns regarding treatment for the above conditions, or other urologic issues, please do not hesitate to contact me. The office telephone contact is [phone]. This note is constructed using voice recognition software. While every effort has been made to ensure accuracy track service person errors may have been included. Yours sincerely, Dr Grant Fitch MD, [facility] - Urology Providers of Expert, Compassionate Care for the Genitourinary System Coding Level of Care Code Est Pt Level 4 (88066) Diagnoses Elevated PSA R97.20 Erectile dysfunction associated with type 2 diabetes mellitus E11.69; N52.1
== END 2023-05-06 13:59 | disposition home or self-care (01) ==
PROVIDERS: Visit Provider Urology
DX: R97.20 Elevated prostate specific antigen [PSA] (principal); E11.69 Type 2 diabetes mellitus with other specified complication; N52.1 Erectile dysfunction due to diseases classified elsewhere
CPT/HCPCS: 99213

== ENCOUNTER 2023-05-12 08:17 | Outpatient (AMB) | payer OTHER, SELFPAY ==
--- NOTE | 2023-05-12 08:20 | MHC.OFFVIS ---
Intake Vital Signs 05/12/23 08:22 Height 6 ft 5 in Weight 239 lb 13.807 oz BMI 28.4 BP 92/60 Blood Pressure Location Lt brachial Position Sitting Pulse 76 Pulse Source Pulse Oximeter Intake Visit Reasons: f/u Type 2 DM Intake Note: Patient present today to follow up on Type 2 Diabetes Mellitus. Patient receives DME supplies through: Pharmacy Last Diabetic Eye exam: approx 1 year Last Podiatry Visit: Does not see a Advisor Advocate Angel Co Founder Random Glucose: 91 mg/dl HgA1C: 7.1% Research Professor Of Biostatistics Required: No Accompanied by: Self / Same As Patient Allergies No Known Allergies [No Known Allergies*] Allergy (Verified 05/12/23 08:23) Medication List - Last Reconciled 05/12/23 by Jose Cobb MD aspirin (Adult Aspirin Regimen) 81 mg PO DAILY atorvastatin 80 mg PO DAILY blood-glucose meter ([employer] CorporationTouch Verio Flex Meter) As directed blood-glucose sensor (FreeStyle Salas 3 Sensor device) As directed change every 14 days cetirizine (Zyrtec) 10 mg PO DAILY PRN doxazosin 4 mg PO BEDTIME 90 days dulaglutide (Trulicity) 3 mg (0.5 mL) subcut QWEEK empagliflozin (Jardiance) 25 mg PO QAM fenofibrate 160 mg PO DAILY finasteride 5 mg PO .QOD 90 days insulin degludec (Tresiba FlexTouch U-200 insulin) 50 units (0.25 mL) subcut BEDTIME levofloxacin 500 mg PO ONCE 3 days lisinopril 2.5 mg PO DAILY 90 days metformin 1,000 mg PO BID 90 days omega-3 acid ethyl esters 2 caps PO BID pen needle, diabetic (BD Clarissa 2nd Gen Pen Needle) As directed twice a day pioglitazone 30 mg PO DAILY tadalafil 10 mg PO DAILY 90 days tadalafil 20 mg PO ONCE PRN 30 days trazodone 150 mg PO BEDTIME HPI HPI Comments History of Present Illness Details Patient is 57 yo male with DM type 2 diagnosed around 2001 who presents for continued management of diabetes. Past medical history: DM2, HD, LJ, hyperparathyroidism, RLS, HTG, hx of foot cellulitis 2019 Micro and macrovascular complications: + neuropathy, Diabetes medications: Tresiba u200 units 50 at dinner , metformin 1000mg BID Trulicity 3mg Qwkly , Jardiance 25mg, pioglitazone 30mg. (Had previously been on Humalog 10-12 for breakfast, lunch, 10-15 for dinner, but rarely used ) Blood glucose monitoring. Salas download showed he is using the sensor 95% of the time. Average glucose is 141 with G mi of 6.7% and variability 35.7%. Glucose is in range 76% of the time with 20% hyperglycemia and 4% hypoglycemia. The hypoglycemia is occurring primarily overnight : Symptoms reported: +numbness, tingling, cramping in feet Hypoglycemia: occasional overnight hypoglycemia Hyperglycemia:denies daytime urinary frequency, +nocturia (1-2x /night) , denies polydypsia exercice: Walks with 3 times week for 20 minutes to half hour. Eye exam: no retinopathy. Needs to make appt Family hx of mother with Type 2 DM Laboratory Tests 03/20/21 03/20/21 03/20/21 11:35 11:35 11:35 Creatinine 0.98 Estimated GFR > 60 Hgb A1c (Clinic) Triglycerides 111 Cholesterol 164 LDL Cholesterol Di rect 94 LDL Cholesterol, C alc 89 HDL Cholesterol 53 Microalb/Creat Rat io 8.0 05/25/21 08:10 Creatinine Estimated GFR Hgb A1c (Clinic) 9.6 H Triglycerides Cholesterol LDL Cholesterol Di rect LDL Cholesterol, C alc HDL Cholesterol Microalb/Creat Rat io PFSH Medical History Back pain with history of spinal surgery Bronchitis Hyperlipidemia LDL goal <100 Hyperparathyroidism Hypertriglyceridemia Neuropathy LJ (obstructive sleep apnea) RLS (restless legs syndrome) Tendonitis Tubular adenoma Type 2 diabetes mellitus with polyneuropathy Surgical History H/O colonoscopy History of anterior cruciate ligament surgery History of esophagogastroduodenoscopy (EGD) History of rotator cuff surgery Hx of excision of mass Hx of removal of cyst (08/17/22) Family History Father Colon cancer Mother Breast cancer Diabetes mellitus Sister Brain cancer Sister No problems noted. Sister No problems noted. Sister No problems noted. Brother Substance use disorder Brother No problems noted. Brother No problems noted. Son No problems noted. Social History Housing: House Patient Tobacco Use Status: Former Tobacco user Quit Date: 20 years ago Tobacco use type: Cigarette Cigarettes Per Day: 10 Years Smoked: 15 e-Cigarette/Vaping Use: Never Used Second Hand Smoke Exposure: No service: No Current occupational status: employed Current occupation: the [employer] Current occupational exposures/hazards: No Cognitive needs: No Hearing needs: No Vision needs: No Physical Exam Vital Signs: Last Vital Signs Pulse 76 05/12/23 08:22 BP 92/60 05/12/23 08:22 BMI result Body Mass Index 28.4 Absence of Cushingoid features. Absence of acromegalic features. Neck exam reveals nl size thyroid about 15 gms. No thyroid nodules palpable. No carotid bruits present. Lungs CTA. Heart S1 S2, Reg R/R. No M/R/ G. Skin exam reveals absence of vitiligo or acanthosis nigricans. Abdominal exam reveals Soft NT/ND with NA BS. No organomegaly present. Neck Other: . Extrem Other: Visual exam of foot performed. No ulcerations or open lesions. No onchomycosis, no callouses.Pulses 2 + distally Sensation decreased to monofilament exam. Vibratory sensation sensed is decreased with 128 Hz tuning fork Results AMB Hemoglobin A1c AMB Hemoglobin A1c 7.1 % Last Edit by TIMBO Marsh on 05/12/23 08:38 Results Reviewed Results Reviewed: 05/12/23 08:26 Glucose, Whole Blood Routine Laboratory Last Values Glucose (Clinic) 91 mg/dL (60-115) 05/12/23 08:26 Hgb A1c (Clinic) 7.1 % (4.0-6.0) H 05/12/23 08:37 Assessment & Plan Assessment & Plan (1) Type 2 diabetes mellitus with polyneuropathy: Code(s): E11.42 - Type 2 diabetes mellitus with diabetic polyneuropathy Plan: This is a 57-year-old white male with history of type 2 diabetes being treated metformin, Actos, Jardiance Mounjaro and basal insulin with good improved glycemic control and known microvascular complications namely neuropathy. Plan is decreased to Toujeo to 20 units. Can titrate to Toujeo up would by 10 units or down by 10 units as dictated by a.m. blood sugars.. (2) Uncontrolled diabetes mellitus with hyperglycemia: Code(s): E11.65 - Type 2 diabetes mellitus with hyperglycemia Orders: Orders AMB Hemoglobin A1c Today E11.65 - Type 2 diabetes mellitus with hyperglycemia Coding Level of Care Code Est Pt Level 4 (90979) Diagnoses Type 2 diabetes mellitus with polyneuropathy E11.42 Uncontrolled diabetes mellitus with hyperglycemia E11.65
[2023-05-12 08:22] VITALS: BP 92/60; PULSE 76; BMI 28.4
[2023-05-12 08:30] LABS: Glucose, Whole Blood 91 mg/dL (60-115)
== END 2023-05-12 09:02 | disposition home or self-care (01) ==
PROVIDERS: PCP Nurse Practitioner Family; Referring Provider Nurse Practitioner Family; Visit Provider Internal Medicine Endocrinology, Diabetes & Metabolism
DX: E11.42 Type 2 diabetes mellitus with diabetic polyneuropathy (principal); E11.65 Type 2 diabetes mellitus with hyperglycemia
CPT/HCPCS: 99214

== ENCOUNTER → 2023-05-12 08:17 | Outpatient (BNVA) | payer OTHER, SELFPAY | PROVIDERS: Visit Provider Internal Medicine Endocrinology, Diabetes & Metabolism | DX: E11.65 Type 2 diabetes mellitus with hyperglycemia (principal); E11.42 Type 2 diabetes mellitus with diabetic polyneuropathy; Z79.82 Long term (current) use of aspirin; Z79.4 Long term (current) use of insulin | CPT/HCPCS: 82947; 83036 ==

== ENCOUNTER 2023-06-29 07:45 | Outpatient (AMB) | payer OTHER, SELFPAY ==
--- NOTE | 2023-06-29 08:16 | A.OFFVIS_ITS ---
Intake Intake Visit Reasons: Type 2 DM Project Account Manager Required: No Accompanied by: Self / Same As Patient Allergies No Known Allergies [No Known Allergies*] Allergy (Verified 05/12/23 08:23) HPI Comprehensive Diabetes Asmnt Most Recent Diabetes Results: Cholesterol 126 mg/dL 03/31/23 HDL Cholesterol 52 mg/dL 03/31/23 Triglycerides 98 mg/dL 03/31/23 Sodium 139 mmol/L (135-145) 03/31/23 Potassium 4.7 mmol/L (3.3-5.1) 03/31/23 Chloride 106 mmol/L (96-108) 03/31/23 Carbon Dioxide 26 mmol/L (22-29) 03/31/23 [facility] Medical History Back pain with history of spinal surgery Bronchitis Hyperlipidemia LDL goal <100 Hyperparathyroidism Hypertriglyceridemia Neuropathy LJ (obstructive sleep apnea) RLS (restless legs syndrome) Tendonitis Tubular adenoma Type 2 diabetes mellitus with polyneuropathy Surgical History H/O colonoscopy History of anterior cruciate ligament surgery History of esophagogastroduodenoscopy (EGD) History of rotator cuff surgery Hx of excision of mass Hx of removal of cyst (08/17/22) Family History Father Colon cancer Mother Breast cancer Diabetes mellitus Sister Brain cancer Sister No problems noted. Sister No problems noted. Sister No problems noted. Brother Substance use disorder Brother No problems noted. Brother No problems noted. Son No problems noted. Social History Housing: House Patient Tobacco Use Status: Former Tobacco user Quit Date: 20 years ago Tobacco use type: Cigarette Cigarettes Per Day: 10 Years Smoked: 15 e-Cigarette/Vaping Use: Never Used Second Hand Smoke Exposure: No service: No Current occupational status: employed Current occupation: [employer] Current occupational exposures/hazards: No Cognitive needs: No Hearing needs: No Vision needs: No Assessment & Plan Assessment & Plan (1) Uncontrolled diabetes mellitus with hyperglycemia: Code(s): E11.65 - Type 2 diabetes mellitus with hyperglycemia Plan: Personal Continuous Glucose Monitor: Patients CGM information reviewed Reviewed patient's sensor data: Hypoglycemia: ? 1% Hyperglycemia:? 23% Time in Range:? 76% Average glucose for the last 2 weeks? 142 mg/dL Patient having postprandial hyperglycemia after supper. Patient reports he generally only eats 1 meal a day. Discussed with patient reducing amount of carbohydrate portion at supper and adding smaller snacks throughout the day if he is unable to stop work for meals. Patient would benefit from Trulicity 4.5 mg but has not been unable to get from the pharmacy Patient is waiting for PA for Trulicity 3 mg. Recommended to patient to check with pharmacy to see if Trulicity 4.5 mg is available if so contact clinic for new prescription Patient is currently taking Tresiba U200 30 units daily Overall patient's glucose is well controlled. Suggested to patient if there is a recurrence of overnight hypoglycemia to reduce Tresiba U 200 from 30 units to 26 units Patient Instructions: Patient will determine after next visit with Dr. Cobb on 09/21/2023 if he is to follow-up with Diabetes Education nurse Coding Level of Care Code Est Pt Level 1 (60578) Diagnoses Uncontrolled diabetes mellitus with hyperglycemia E11.65
== END 2023-06-29 08:21 | disposition home or self-care (01) ==
PROVIDERS: PCP Nurse Practitioner Family; Visit Provider Registered Nurse Diabetes Educator
DX: E11.65 Type 2 diabetes mellitus with hyperglycemia (principal)

== ENCOUNTER → 2023-06-29 07:45 | Outpatient (BNVA) | payer OTHER, SELFPAY | PROVIDERS: PCP Nurse Practitioner Family; Visit Provider Registered Nurse Diabetes Educator | DX: E11.65 Type 2 diabetes mellitus with hyperglycemia (principal) | CPT/HCPCS: 99211 ==

== ENCOUNTER 2023-07-19 14:49 | Outpatient (AMB) | payer OTHER, SELFPAY ==
[2023-07-19 15:05] VITALS: BP 128/80; PULSE 89; O2SAT 99; BMI 29.1
--- NOTE | 2023-07-19 15:05 | A.OFFPC_ITS ---
Vital Signs 07/19/23 15:05 Height 6 ft 5 in Weight 245 lb 4 oz BMI 29.1 BP 128/80 Blood Pressure Location Rt brachial Position Sitting Pulse 89 Pulse Source Pulse Oximeter Pulse Oximetry (%) 99 Oxygen Delivery Method Room Air Intake Visit Reasons: Physical Exam Allergies No Known Allergies [No Known Allergies*] Allergy (Verified 07/19/23 15:06) Tobacco use date assessed: 07/19/23 Dental Screening Dental Screen Date: 07/19/23 Did you have a dental visit in the last 12 months?: Yes Did you have a dental problem in the last 6 months where you did not have access to dental care?: No Was dental information given to patient?: Patient has dentist HPI Physical Exam HPI Details Pt is here for a PE. Will order labs. Colon screen is up to date. PSA is up to date, sees urology. Pt is a diabetic, sees endo. [facility] Medical History Tubular adenoma Back pain with history of spinal surgery Neuropathy RLS (restless legs syndrome) Tendonitis Hyperparathyroidism Bronchitis LJ (obstructive sleep apnea) Type 2 diabetes mellitus with polyneuropathy Hyperlipidemia LDL goal <100 Hypertriglyceridemia Surgical History Hx of excision of mass History of esophagogastroduodenoscopy (EGD) H/O colonoscopy Hx of removal of cyst (08/17/22) History of anterior cruciate ligament surgery History of rotator cuff surgery Family History Father Colon cancer Mother Breast cancer Diabetes mellitus Sister Brain cancer Sister No problems noted. Sister No problems noted. Sister No problems noted. Brother Substance use disorder Brother No problems noted. Brother No problems noted. Son No problems noted. Social History Housing: House Patient Tobacco Use Status: Former Tobacco user Quit Date: 20 years ago Tobacco use type: Cigarette Cigarettes Per Day: 10 Years Smoked: 15 e-Cigarette/Vaping Use: Never Used Second Hand Smoke Exposure: No service: No Current occupational status: employed Current occupation: the [employer] Current occupational exposures/hazards: No Cognitive needs: No Hearing needs: No Vision needs: No Questionnaire Thrive Questionnaire Date Thrive assessed: 06/07/22 CASSIE-7 AMB Questionnaire CASSIE-7 Date CASSIE - 7 assessed: 06/07/22 Source: Developed by Drs. Jose Vee, Graciela Gracia, Aldo Silverman and colleagues, with an educational misha from [employer]. Review of Systems Const Denies chills and Denies fever(s) Eyes Denies blurry vision ENT Denies vertigo, Denies dizziness and Denies sore throat Card Denies chest pain at rest, Denies chest pain with activity, Denies diaphoresis, Denies dyspnea and Denies dyspnea on exertion Resp Denies cough, Denies dyspnea, Denies dyspnea on exertion and Denies wheezing GI Denies abdominal pain, Denies melena, Denies hematochezia, Denies constipation, Denies diarrhea and Denies loose stools Denies hematuria Musc Denies numbness and Denies tingling Skin/Breast Denies lesions Neuro Denies vertigo, Denies dizziness, Denies numbness and Denies tingling Psych Denies anxiety, Denies depression, Denies homicidal ideation, Denies suicidal ideation and Denies other (substance abuse) Aller/Immun Denies wheezing Physical exam (Primary Care) Vital Signs: Last Vital Signs Pulse 89 07/19/23 15:05 BP 128/80 07/19/23 15:05 Pulse Ox 99 07/19/23 15:05 Oxygen Delivery Method Room Air 07/19/23 15:05 BMI result Body Mass Index 29.1 Tobacco/Smoking Status: Tobacco use Status Tobacco use date assessed 07/19/23 07/19/23 15:11 Patient Tobacco Use Status Former Tobacco user 07/19/23 15:09 Tobacco use type Cigarette 07/19/23 15:09 e-Cigarette/Vaping Use Never Used 07/19/23 15:09 Thrive Assessment: Date of Thrive Assessment Date Thrive assessed 06/07/22 07/19/23 15:09 Const General: cooperative Nutritional Appearance: well nourished Orientation/consciousness: patient oriented x3 HENMT Head: Yes normal to inspection, Yes normocephalic and Yes atraumatic Ears: TM's normal bilaterally Eyes General: appearance normal, both eyes and all related structures Alignment and Position: alignment normal and position normal Neck Neck: Yes normal visual inspection and Yes no lymphadenopathy Thyroid: Thyroid normal Resp Effort & Inspection: normal respiratory effort Auscultation: clear to auscultation bilaterally Cardio Rate: regular rate Rhythm: regular rhythm Heart sounds: S1 normal heart sound present, S2 normal heart sound present and n o murmurs GI Palpation (GI): Soft to palpation and nontender Auscultation: normal bowel sounds Male General Exam: Yes normal external exam Penis: normal penis Scrotum: scrotum normal, testes descended bilaterally and no inguinal hernias Testes: no testicular mass Skin Rashes: no rashes Neuro General: patient oriented x3, moves all extremities, no focal motor deficits and deep tendon reflexes 2+ bilaterally Romberg Test: Negative Psych Appearance: grossly normal Mental Status: mental status grossly normal Speech and movement: Normal speech and movement present Affect: normal affect Attitude: cooperative Thought process: Normal thought process present Thought content: Normal thought content present Insight: Good insight present (Psych) Judgement: Good judgement present (Psych) Assessment and Plan Assessment & Plan (1) Physical exam: Code(s): Z - Encounter for general adult medical examination without abnormal findings Plan: Labs ordered Plan The patient agreed to the use of a medical transcription editor for this encounter. Scribed for PEDRO Diaz by Leora Aden medical transcription editor, on 07/19/2023 at 15:10 EST. Orders: Orders Comprehensive [place]. Panel Fast Today Z00. - Encounter for general adult medical examination without abnormal findings UA CC w/rflx Micro + Cult Today Z00. - Encounter for general adult medical examination without abnormal findings Lipid Panel Today Z00. - Encounter for general adult medical examination without abnormal findings Complete Blood Count Auto Diff Today Z00.00 - Encounter for general adult medical examination without abnormal findings TSH reflex Free T4 Today Z00.00 - Encounter for general adult medical examination without abnormal findings Coding Level of Care Code Est Pt Prev Care 40-64y(41496) Diagnoses Physical exam Z00.00
== END 2023-07-19 15:45 | disposition home or self-care (01) ==
PROVIDERS: Visit Provider Nurse Practitioner Family
DX: Z00.00 Encounter for general adult medical examination without abnormal findings (principal)
CPT/HCPCS: 99396

== ENCOUNTER 2023-09-21 07:53 | Outpatient (AMB) | payer OTHER, SELFPAY ==
--- NOTE | 2023-09-21 07:56 | A.OFFVIS_ITS ---
Intake Vital Signs 09/21/23 07:59 Height 6 ft 5 in Weight 254 lb 10.142 oz BMI 30.2 BP 100/66 Blood Pressure Location Lt brachial Position Sitting Pulse 75 Pulse Source Pulse Oximeter Intake Visit Reasons: f/u Type 2 DM-CONFIRMED Intake Note: Patient presents today to follow up on Type 2 Diabetes Mellitus. 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 Past medical history: DM2, HD, LJ, hyperparathyroidism, RLS, HTG, hx of foot cellulitis 2019 Micro and macrovascular complications: + neuropathy, Diabetes medications: Tresiba u200 units 30 at dinner , metformin 1000mg BID Trulicity 3mg Qwkly , Jardiance 25mg, pioglitazone 30mg. (Had previously been on Humalog 10-12 for breakfast, lunch, 10-15 for dinner, but rarely used ) Blood glucose monitoring. Salas download showed he is using the sensor 93% of the time. Average glucose is 138 with G mi of 6.6% and variability 39.6%. Glucose is in range 78% of the time with 19% hyperglycemia and 3% hypoglycemia. The hypoglycemia is occurring primarily overnight : Symptoms reported: +numbness, tingling, cramping in feet Hypoglycemia: occasional overnight hypoglycemia Hyperglycemia:denies daytime urinary frequency, +nocturia (1-2x /night) , denies polydypsia exercice: Walks with 3 times week for 20 minutes to half hour. Eye exam: last appt no retinopathy. Needs to make appt Family hx of mother with Type 2 DM Laboratory Tests 03/20/21 03/20/21 03/20/21 11:35 11:35 11:35 Creatinine 0.98 Estimated GFR > 60 Hgb A1c (Clinic) Triglycerides 111 Cholesterol 164 LDL Cholesterol Di rect 94 LDL Cholesterol, C alc 89 HDL Cholesterol 53 Microalb/Creat Rat io 8.0 05/25/21 08:10 Creatinine Estimated GFR Hgb A1c (Clinic) 9.6 H Triglycerides Cholesterol LDL Cholesterol Di rect LDL Cholesterol, C alc HDL Cholesterol Microalb/Creat Rat io PFSH Medical History Tubular adenoma Back pain with history of spinal surgery Neuropathy RLS (restless legs syndrome) Tendonitis Hyperparathyroidism Bronchitis LJ (obstructive sleep apnea) Type 2 diabetes mellitus with polyneuropathy Hyperlipidemia LDL goal <100 Hypertriglyceridemia Surgical History Hx of excision of mass History of esophagogastroduodenoscopy (EGD) H/O colonoscopy Hx of removal of cyst (08/17/22) History of anterior cruciate ligament surgery History of rotator cuff surgery Family History Father Colon cancer Mother Breast cancer Diabetes mellitus Sister Brain cancer Sister No problems noted. Sister No problems noted. Sister No problems noted. Brother Substance use disorder Brother No problems noted. Brother No problems noted. Son No problems noted. Social History Housing: House Patient Tobacco Use Status: Former Tobacco user Quit Date: 20 years ago Tobacco use type: Cigarette Cigarettes Per Day: 10 Years Smoked: 15 e-Cigarette/Vaping Use: Never Used Second Hand Smoke Exposure: No service: No Current occupational status: employed Current occupation: [employer] Current occupational exposures/hazards: No Cognitive needs: No Hearing needs: No Vision needs: No Physical Exam Vital Signs: Last Vital Signs Pulse 75 09/21/23 07:59 BP 100/66 09/21/23 07:59 BMI result Body Mass Index 30.2 Absence of Cushingoid features. Absence of acromegalic features. Neck exam reveals nl size thyroid about 15 gms. No thyroid nodules palpable. No carotid bruits present. Lungs CTA. Heart S1 S2, Reg R/R. No M/R/ G. Skin exam reveals absence of vitiligo or acanthosis nigricans. Abdominal exam reveals Soft NT/ND with NA BS. No organomegaly present. Neck Other: . Extrem Other: Visual exam of foot performed. No ulcerations or open lesions. No onchomycosis, no callouses.Pulses 2 + distally Sensation decreased to monofilament exam. Vibratory sensation sensed is decreased with 128 Hz tuning fork Results AMB Hemoglobin A1c AMB Hemoglobin A1c 6.7 % Last Edit by Michelle Church on 09/21/23 08:28 Results Reviewed Results Reviewed: Laboratory Last Values Glucose (Clinic) 107 mg/dL (60-115) 09/21/23 08:03 Assessment & Plan Assessment & Plan (1) Type 2 diabetes mellitus with polyneuropathy: Code(s): E11.42 - Type 2 diabetes mellitus with diabetic polyneuropathy Plan: This is a 57-year-old white male with history of type 2 diabetes being treated metformin, Actos, JardianceTrulicity and basal insulin with good improved glycemic control and known microvascular complications namely neuropathy. Plan is decreased to Toujeo to 10 units. Can discontinue the Toujeo if continued morning hypoglycemia. Will refer To podiatry. Switch Salas to Dexcom at insurance request (2) Uncontrolled diabetes mellitus with hyperglycemia: Code(s): E11.65 - Type 2 diabetes mellitus with hyperglycemia Orders: Orders AMB Hemoglobin A1c Today E11.65 - Type 2 diabetes mellitus with hyperglycemia Microalbumin, Random (w Creat) Today E11.65 - Type 2 diabetes mellitus with hyperglycemia Referrals Podiatry Referral E11.65 - Type 2 diabetes mellitus with hyperglycemia Medications: New blood-glucose sensor (Dexcom G7 Sensor device) As directed change every 10 days 3 ea 4RF Discontinued blood-glucose sensor (FreeStyle Salas 3 Sensor device) Discontinued Reason: Doctor's Order As directed change every 14 days 6 ea 4RF Coding Level of Care Code Est Pt Level 4 (04613) Diagnoses Type 2 diabetes mellitus with polyneuropathy E11.42 Uncontrolled diabetes mellitus with hyperglycemia E11.65
[2023-09-21 07:59] VITALS: BP 100/66; PULSE 75; BMI 30.2
[2023-09-21 08:08] LABS: Glucose, Whole Blood 107 mg/dL (60-115)
== END 2023-09-21 08:37 | disposition home or self-care (01) ==
PROVIDERS: PCP Nurse Practitioner Family; Visit Provider Internal Medicine Endocrinology, Diabetes & Metabolism
DX: E11.42 Type 2 diabetes mellitus with diabetic polyneuropathy (principal); E11.65 Type 2 diabetes mellitus with hyperglycemia
CPT/HCPCS: 99214

== ENCOUNTER → 2023-09-21 07:53 | Outpatient (BNVA) | payer OTHER, SELFPAY | PROVIDERS: PCP Nurse Practitioner Family; Visit Provider Internal Medicine Endocrinology, Diabetes & Metabolism | DX: E11.65 Type 2 diabetes mellitus with hyperglycemia (principal); E11.42 Type 2 diabetes mellitus with diabetic polyneuropathy; Z79.4 Long term (current) use of insulin | CPT/HCPCS: 82947; 83036 ==

== ENCOUNTER 2023-10-27 10:21 | Outpatient (REF) | payer OTHER, SELFPAY | END 2023-10-27 10:22 | disposition home or self-care (01) | LOC: HO.HMGCLDS 10:21 | PROVIDERS: PCP Nurse Practitioner Family; Visit Provider Urology | DX: Z12.5 Encounter for screening for malignant neoplasm of prostate (principal); R97.20 Elevated prostate specific antigen [PSA] | CPT/HCPCS: 36415; 84153 ==

== ENCOUNTER 2023-11-02 08:41 | Outpatient (AMB) | payer OTHER, SELFPAY ==
--- NOTE | 2023-11-02 08:45 | MHC.OFFVIS ---
Intake Intake Visit Reasons: 6m/PSA(set) Intake Note: Patient is Present for Follow Up PSA Urology Medication: Finasteride, Tadalafil, Doxazosin Antibiotic Allergies: None Blood Thinners: Aspirin Patient states he has no concern, no urinary issues he would like to confirm if he will need any refills on current medications PSA: 10/27/2023- 2.95 Allergies No Known Allergies [No Known Allergies*] Allergy (Verified 11/02/23 08:47) Medication List - Last Reconciled 11/02/23 by Grant Fitch MD aspirin (Adult Aspirin Regimen) 81 mg PO DAILY atorvastatin 80 mg PO DAILY blood-glucose meter ([employer] Verio Flex Meter) As directed blood-glucose sensor (Clin[employer]ace [employer]ide G7 Sensor device) As directed change every 10 days cetirizine (Zyrtec) 10 mg PO DAILY PRN doxazosin 4 mg PO BEDTIME 90 days dulaglutide (Trulicity) 4.5 mg (0.5 mL) subcut QWEEK empagliflozin (Jardiance) 25 mg PO QAM fenofibrate 160 mg PO DAILY finasteride 5 mg PO .QOD 90 days insulin degludec (Tresiba FlexTouch U-200 insulin) 50 units (0.25 mL) subcut BEDTIME 90 days lisinopril 2.5 mg PO DAILY 90 days metformin 1,000 mg PO BID 90 days omega-3 acid ethyl esters 2 caps PO BID pen needle, diabetic (BD Clarissa 2nd Gen Pen Needle) As directed twice a day pioglitazone 30 mg PO DAILY tadalafil 20 mg PO ONCE PRN 30 days tadalafil 10 mg PO DAILY 90 days trazodone 150 mg PO BEDTIME HPI HPI Comments History of Present Illness Details Damien is a pleasant male. He is a patient Dr. Kong. He seen for the following urologic conditions - elevated PSA - erectile dysfunction with diabetes - lower urinary tract symptoms PSA down to 2.7 on finasteride Will cut back to 1/2 tab 3 times per week - still some libido suppression Minimal erections Continue with tadalafil 10 mg daily and pump up to 40 mg on demand This is maximum oral therapy Discussed other options including vacuum pump, injectable therapy, penile prosthetic Elevated PSA Labs - 06/14 4.6, 09/14 4.9 16% Discussed risk factors no family history Prostate biopsy 10/14 3 cores small acinar proliferation Current therapy finasteride - Tuesday, Tuesday, Tuesday - 05/15 2.7. 11/16 2.9 Lower urinary tract symptoms Urinary urgency and frequency, nocturia x3, weakness of stream, hesitancy No prior therapy Given combination with erectile dysfunction initiation daily tadalafil Erectile dysfunction setting of diabetes Diabetic diagnosis 2014 On combination therapy - 5mg daily tadalaifil with 20mg on demand Recent HbA1c 9.9 with elevated cholesterol Background of sleep apnea under adjustment Labs 09/14 T565 [facility] Medical History Tubular adenoma Back pain with history of spinal surgery Neuropathy RLS (restless legs syndrome) Tendonitis Hyperparathyroidism Bronchitis LJ (obstructive sleep apnea) Type 2 diabetes mellitus with polyneuropathy Hyperlipidemia LDL goal <100 Hypertriglyceridemia Surgical History Hx of excision of mass History of esophagogastroduodenoscopy (EGD) H/O colonoscopy Hx of removal of cyst (08/17/22) History of anterior cruciate ligament surgery History of rotator cuff surgery Family History Father Colon cancer Mother Breast cancer Diabetes mellitus Sister Brain cancer Sister No problems noted. Sister No problems noted. Sister No problems noted. Brother Substance use disorder Brother No problems noted. Brother No problems noted. Son No problems noted. Social History Housing: House Patient Tobacco Use Status: Former Tobacco user Quit Date: 20 years ago Tobacco use type: Cigarette Cigarettes Per Day: 10 Years Smoked: 15 e-Cigarette/Vaping Use: Never Used Second Hand Smoke Exposure: No service: No Current occupational status: employed Current occupation: the [email or web address] Current occupational exposures/hazards: No Cognitive needs: No Hearing needs: No Vision needs: No Review of Systems Const Denies chills and Denies fever(s) Card Reports no additional complaints and Denies syncope Resp Denies cough GI Denies abdominal pain and Denies heartburn Reports as per HPI and Denies change in libido Neuro Denies syncope Psych Denies change in libido Endo Denies change in libido Physical Exam Const General: cooperative, healthy appearing, comfortable and no acute distress Orientation/consciousness: patient oriented x3 HEENT Face and sinus: Yes normal facial exam Mouth: moist mucous membranes Neck Neck: Yes normal visual inspection, Yes full ROM and Yes trachea midline Chest Chest palpation & inspection: normal inspection of the chest Resp Effort & Inspection: normal respiratory effort, able to speak in complete sentences and no respiratory distress GI Inspection: Yes normal to inspection Back/Spine/Pelvis Cervical Spine: normal cervical lordosis Thoracic/Lumbar Spine: thoracic and lumbar spine normal to inspection Skin General skin exam: no rashes or lesions noted Neuro General: patient oriented x3, gait normal, tone normal and moves all extremities Extrem General: Yes normal to inspection and Yes capillary refill normal Assessment & Plan Assessment & Plan (1) Elevated PSA: Comment: 10/14 Prostate Biopsy 3 core MIKIE Code(s): R97.20 - Elevated prostate specific antigen [PSA] (2) Erectile dysfunction associated with type 2 diabetes mellitus: Code(s): E11.69 - Type 2 diabetes mellitus with other specified complication; N52.1 - Erectile dysfunction due to diseases classified elsewhere Plan 6 month follow-up PSA Orders: Orders Prostate Specific Antigen 10/27/23 R97.20 - Elevated prostate specific antigen [PSA] Patient Instructions: Imaging studies, laboratory and physical exam results were discussed and reviewed in detail. No major barriers to patient understanding were identified. An opportunity to ask questions regarding the treatment plan was provided. All questions were answered. The patient expressed understanding and agreement with the above treatment plan. The patient is aware they should contact our office by phone for worsening of their current condition or the appearance of new urologic symptoms. Compliance is encouraged with any medications and followup testing that is ordered. It is a privilege to participate in the urologic care of your patient. If you have any questions or concerns regarding treatment for the above conditions, or other urologic issues, please do not hesitate to contact me. The office telephone contact is [phone]. This note is constructed using voice recognition software. While every effort has been made to ensure accuracy performance improvement coordinator errors may have been included. Yours sincerely, Dr Grant Fitch MD, [facility] - Urology Providers of Expert, Compassionate Care for the Genitourinary System Coding Level of Care Code Est Pt Level 4 (20327) Diagnoses Elevated PSA R97.20 Erectile dysfunction associated with type 2 diabetes mellitus E11.69; N52.1
== END 2023-11-02 09:14 | disposition home or self-care (01) ==
PROVIDERS: PCP Nurse Practitioner Family; Visit Provider Urology
DX: R97.20 Elevated prostate specific antigen [PSA] (principal); E11.69 Type 2 diabetes mellitus with other specified complication; N52.1 Erectile dysfunction due to diseases classified elsewhere
CPT/HCPCS: 99213

== ENCOUNTER → 2023-11-02 08:41 | Outpatient (BNVA) | payer OTHER, SELFPAY | PROVIDERS: PCP Nurse Practitioner Family; Visit Provider Urology ==

== ENCOUNTER 2023-11-07 09:39 | Outpatient (AMB) | payer OTHER, SELFPAY ==
--- NOTE | 2023-11-07 09:42 | A.OFFPC_ITS ---
Vital Signs 11/07/23 09:45 Height 6 ft 5 in Weight 252 lb BMI 29.9 BP 102/60 Blood Pressure Location Rt brachial Position Sitting Pulse 76 Pulse Source Pulse Oximeter Pulse Oximetry (%) 99 Oxygen Delivery Method Room Air Intake Visit Reasons: Ongoing cough Intake Note: Patient here for a cough that has been present for 3 months. pt states he was not sick at some point, cough just started and wont go away. 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: No Accompanied by: Self / Same As Patient Allergies lisinopril Adverse Reaction (Mild, Verified 11/07/23 10:04) Cough Medication List - Last Reconciled 11/07/23 by Trey Gregg, LATHE SCALPER OPERATOR- aspirin (Adult Aspirin Regimen) 81 mg PO DAILY atorvastatin 80 mg PO DAILY blood-glucose meter ([employer] Verio Flex Meter) As directed blood-glucose sensor (T[employer]Cell G7 Sensor device) As directed change every 10 days cetirizine (Zyrtec) 10 mg PO DAILY PRN doxazosin 4 mg PO BEDTIME 90 days dulaglutide (Trulicity) 4.5 mg (0.5 mL) subcut QWEEK empagliflozin (Jardiance) 25 mg PO QAM fenofibrate 160 mg PO DAILY finasteride 5 mg PO .QOD 90 days insulin degludec (Tresiba FlexTouch U-200 insulin) 50 units (0.25 mL) subcut BEDTIME 90 days losartan 12.5 mg (1/2 x 25 mg) PO DAILY 90 days metformin 1,000 mg PO BID 90 days omega-3 acid ethyl esters 2 caps PO BID pen needle, diabetic (BD Clarissa 2nd Gen Pen Needle) As directed twice a day pioglitazone 30 mg PO DAILY tadalafil 20 mg PO ONCE PRN 30 days tadalafil 10 mg PO DAILY 90 days trazodone 150 mg PO BEDTIME Tobacco use date assessed: 11/07/23 Dental Screening Dental Screen Date: 11/07/23 Did you have a dental visit in the last 12 months?: Yes Did you have a dental problem in the last 6 months where you did not have access to dental care?: No Was dental information given to patient?: Patient has dentist HPI Ongoing cough HPI Details Pt c/o dry cough x3 months. He reports that this is worse at night. He does not have any other symptoms. ? if cough is related to LIZZY. Will stop lisinopril and start losartan 12.5mg. Pt will let me know if he develops dizziness. Denies fever, chills, wheezing, chest pain, and shortness of breath. [facility] Medical History Tubular adenoma Back pain with history of spinal surgery Neuropathy RLS (restless legs syndrome) Tendonitis Hyperparathyroidism Bronchitis LJ (obstructive sleep apnea) Type 2 diabetes mellitus with polyneuropathy Hyperlipidemia LDL goal <100 Hypertriglyceridemia Surgical History Hx of excision of mass History of esophagogastroduodenoscopy (EGD) H/O colonoscopy Hx of removal of cyst (08/17/22) History of anterior cruciate ligament surgery History of rotator cuff surgery Family History Father Colon cancer Mother Breast cancer Diabetes mellitus Sister Brain cancer Sister No problems noted. Sister No problems noted. Sister No problems noted. Brother Substance use disorder Brother No problems noted. Brother No problems noted. Son No problems noted. Social History Housing: House Patient Tobacco Use Status: Former Tobacco user Quit Date: 20 years ago Tobacco use type: Cigarette Cigarettes Per Day: 10 Years Smoked: 15 e-Cigarette/Vaping Use: Never Used Second Hand Smoke Exposure: No service: No Current occupational status: employed Current occupation: the [employer] Current occupational exposures/hazards: No Cognitive needs: No Hearing needs: No Vision needs: No Questionnaire Thrive Questionnaire Date Thrive assessed: 06/07/22 CASSIE-7 AMB Questionnaire CASSIE-7 Date CASSIE - 7 assessed: 06/07/22 Source: Developed by Drs. Jose Vee, Graciela Gracia, Aldo Silverman and colleagues, with an educational misha from [employer]. Review of Systems Const Reports as per HPI Physical exam (Primary Care) Vital Signs: Last Vital Signs Pulse 76 11/07/23 09:45 BP 102/60 11/07/23 09:45 Pulse Ox 99 11/07/23 09:45 Oxygen Delivery Method Room Air 11/07/23 09:45 BMI result Body Mass Index 29.9 Tobacco/Smoking Status: Tobacco use Status Tobacco use date assessed 11/07/23 11/07/23 09:48 Patient Tobacco Use Status Former Tobacco user 11/07/23 09:48 Tobacco use type Cigarette 11/07/23 09:48 e-Cigarette/Vaping Use Never Used 11/07/23 09:48 Thrive Assessment: Date of Thrive Assessment Date Thrive assessed 06/07/22 11/07/23 09:48 Const General: cooperative Orientation/consciousness: patient oriented x3 HENMT Ears: TM's normal bilaterally Throat: Yes posterior oropharynx normal and Yes uvula midline Eyes General: appearance normal, both eyes and all related structures Neck Neck: Yes no lymphadenopathy Resp Effort & Inspection: normal respiratory effort Auscultation: clear to auscultation bilaterally Cardio Rate: regular rate Rhythm: regular rhythm Heart sounds: S1 normal heart sound present and S2 normal heart sound present Neuro General: patient oriented x3 Psych Appearance: grossly normal Mental Status: mental status grossly normal Speech and movement: Normal speech and movement present Affect: normal affect Attitude: cooperative Thought process: Normal thought process present Thought content: Normal thought content present Insight: Good insight present (Psych) Judgement: Good judgement present (Psych) Assessment and Plan Assessment & Plan (1) Cough due to LIZZY inhibitor: Code(s): R05.8 - Other specified cough; T46.4X5A - Adverse effect of ujpfvomrdlb-zveneqqirs-gctqbu inhibitors, initial encounter Plan: switching to ARB, STOPPING LIZZY Plan The patient agreed to the use of a medical education manager for this encounter. Scribed for PEDRO Diaz by Leora Aden medical education manager, on 11/07/2023 at 09:55 EST. Medications: New losartan 12.5 mg (1/2 x 25 mg) PO DAILY 90 days 45 tabs 0RF Discontinued lisinopril to protect kidneys Discontinued Reason: Doctor's Order 2.5 mg PO DAILY 90 days 90 tabs 1RF Coding Level of Care Code Est Pt Level 3 (17568) Diagnoses Cough due to LIZZY inhibitor R05.8; T46.4X5A
[2023-11-07 09:45] VITALS: BP 102/60; PULSE 76; O2SAT 99; BMI 29.9
== END 2023-11-07 11:56 | disposition home or self-care (01) ==
PROVIDERS: PCP Nurse Practitioner Family; Visit Provider Nurse Practitioner Family
DX: R05.8 Other specified cough (principal); T46.4X5A Adverse effect of angiotensin-converting-enzyme inhibitors, initial encounter
CPT/HCPCS: 99213

== ENCOUNTER 2024-01-23 11:54 | Outpatient (AMB) | payer OTHER, SELFPAY ==
[2024-01-23 12:01] VITALS: BP 110/60; PULSE 78; TEMP 36.6; O2SAT 96
--- NOTE | 2024-01-23 12:01 | AM.OFFWIN_ITS ---
Intake Vital Signs 3 01/23/24 12:01 Weight 252 lb BP 110/60 Blood Pressure Location Lt brachial Position Sitting Pulse 78 Pulse Source Pulse Oximeter Temp 97.9 F Temp Source Temporal Artery Scan Pulse Oximetry (%) 96 Intake Visit Reasons: EP lump on left elbow (lobby) Intake Note: pt is here today for lump o lft elbow started today Patient Tobacco Use Status: Former Tobacco user Quit Date: 20 years ago Allergies lisinopril Adverse Reaction (Mild, Verified 01/23/24 12:05) Cough Do you need a note to return to daycare/school/sports/work: No HPI HPI Comments 2 History of Present Illness0 Details 58 y/o male patient who presents to walk in clinic with c/o left elbow lump. Pt reports noticing lump this morning. Denies any pain. Denies injury or trauma. [facility] Medical History Tubular adenoma Back pain with history of spinal surgery Neuropathy RLS (restless legs syndrome) Tendonitis Hyperparathyroidism Bronchitis LJ (obstructive sleep apnea) Type 2 diabetes mellitus with polyneuropathy Hyperlipidemia LDL goal <100 Hypertriglyceridemia Surgical History Hx of excision of mass History of esophagogastroduodenoscopy (EGD) H/O colonoscopy Hx of removal of cyst (08/17/22) History of anterior cruciate ligament surgery History of rotator cuff surgery Family History Father Colon cancer Mother Breast cancer Diabetes mellitus Sister Brain cancer Sister No problems noted. Sister No problems noted. Sister No problems noted. Brother Substance use disorder Brother No problems noted. Brother No problems noted. Son No problems noted. Social History Housing: House Patient Tobacco Use Status: Former Tobacco user Quit Date: 20 years ago Tobacco use type: Cigarette Cigarettes Per Day: 10 Years Smoked: 15 e-Cigarette/Vaping Use: Never Used Second Hand Smoke Exposure: No service: No Current occupational status: employed Current occupation: [employer] Current occupational exposures/hazards: No Cognitive needs: No Hearing needs: No Vision needs: No Review of Systems Const All systems reviewed & are unremarkable except as noted in HPI and below Physical Exam Vital Signs: Last Vital Signs Temp 97.9 F 01/23/24 12:01 Pulse 78 01/23/24 12:01 BP 110/60 01/23/24 12:01 Pulse Ox 96 01/23/24 12:01 Const Orientation/consciousness: patient oriented x3 Neuro General: patient oriented x3, gait normal and moves all extremities Extrem Left upper extremity: elbow/forearm (Lump soft, mobile round filled with fluid ~ golf ball) Details: normal ROM Shoulder/upper arm images: 2 1. Golf-ball size lump, round soft filled with fluid. Psych Speech and movement: Normal speech and movement present Assessment & Plan Assessment & Plan (1) Left elbow pain: Code(s): M25.522 - Pain in left elbow Plan: - Lipoma vs Ganglion cyst - Referral to Ortho Orders: Referrals 2 Orthopedics Referral R22.32 - Localized swelling, mass and lump, left upper limb Coding Level of Care Code Est Pt Level 3 (89740) Diagnoses Left elbow pain M25.522 Time Spent (min) 15
== END 2024-01-23 13:20 | disposition home or self-care (01) ==
PROVIDERS: PCP Nurse Practitioner Family; Visit Provider Nurse Practitioner Family
DX: M25.522 Pain in left elbow (principal)
CPT/HCPCS: 99213

== ENCOUNTER 2024-02-01 12:45 | Outpatient (REF) | payer OTHER, SELFPAY ==
--- NOTE | ~2024-02-01 | XR_ITS ---
EXAMINATION: XR ELBOW, LEFT CLINICAL INFORMATION: Elbow pain COMPARISON: None available. TECHNIQUE: AP, lateral, and oblique views of the left elbow. FINDINGS: No acute fracture or dislocation. Joint spaces are maintained. No elbow effusion. Marked soft tissue swelling dorsal to the elbow, recommend correlation with symptoms of olecranon bursitis. XR/XR elbow LT min 3V IMPRESSION: 1. Marked soft tissue swelling dorsal to the elbow, recommend correlation with symptoms of olecranon bursitis.
== END 2024-02-01 12:46 | disposition home or self-care (01) ==
LOC: HO.HOSX 12:45
PROVIDERS: Visit Provider Physician Assistant
DX: M70.22 Olecranon bursitis, left elbow (principal)
CPT/HCPCS: 73080

== ENCOUNTER 2024-02-01 13:59 | Outpatient (AMB) | payer OTHER, SELFPAY ==
--- NOTE | 2024-02-01 14:22 | A.OFFVIS_ITS ---
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 Patient reports on Easter he had raked his yard and woke up the following day with a lump on his elbow. He was seen at [facility] walk in who referred patient to orthopedics. States soreness inside his elbow. Denies numbness and tingling. No other tx. 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 He was seen at walk in clinic where he was referred to our office. He currently states he has soreness ?inside? his elbow. He c/o swelling in his elbow however he denies any numbness or tingling. He has not had any previous treatment. He has been using ibuprofen and ice for the swelling. 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 [facility] Medical History Tubular adenoma Back pain with history of spinal surgery Neuropathy RLS (restless legs syndrome) Tendonitis Hyperparathyroidism Bronchitis LJ (obstructive sleep apnea) Type 2 diabetes mellitus with polyneuropathy Hyperlipidemia LDL goal <100 Hypertriglyceridemia Surgical History Hx of excision of mass History of esophagogastroduodenoscopy (EGD) H/O colonoscopy Hx of removal of cyst (08/17/22) History of anterior cruciate ligament surgery History of rotator cuff surgery Family History Father Colon cancer Mother Breast cancer Diabetes mellitus Sister Brain cancer Sister No problems noted. Sister No problems noted. Sister No problems noted. Brother Substance use disorder Brother No problems noted. Brother No problems noted. Son No problems noted. Social History Housing: House Patient Tobacco Use Status: Former Tobacco user Quit Date: 20 years ago Tobacco use type: Cigarette Cigarettes Per Day: 10 Years Smoked: 15 e-Cigarette/Vaping Use: Never Used Second Hand Smoke Exposure: No service: No Current occupational status: employed Current occupation: the [employer] Current occupational exposures/hazards: No Cognitive needs: No Hearing needs: No Vision needs: No Review of Systems Const All systems reviewed & are unremarkable except as noted in HPI and below Physical Exam Vital Signs: BMI result Body Mass Index 29.9 Const General: cooperative, healthy appearing, comfortable, no acute distress, well developed and alert Orientation/consciousness: patient oriented x3 HEENT Head: Yes normal to inspection, Yes normocephalic and Yes atraumatic Eyes General: appearance normal, both eyes and all related structures Resp Effort & Inspection: normal respiratory effort and able to speak in complete sentences Cardio Rate: regular rate Peripheral pulses: Peripheral pulses 2+ throughout GI Palpation (GI): Soft to palpation Skin Lesions: no lesions Rashes: no rashes Neuro General: patient oriented x3 Extrem Other: Left elbow: Normal to inspection. He does have a trace olecranon bursitis. No redness, warmth or tenderness to palpation. He has full ROM without pain. NVI. Assessment & Plan Assessment & Plan (1) Olecranon bursitis, left elbow: Code(s): M70.22 - Olecranon bursitis, left elbow Plan: X-rays of the left elbow obtained in the office today are negative for acute or chronic abnormalities. There is evidence of bursitis. Plan We discussed conservative management, which includes compression, NSAIDs and activity modifications. If symptoms worsen, the area becomes red, hot and painful, they should return to see me. Otherwise, PRN. Orders: Orders XR elbow LT min 3V Today M25.522 - Pain in left elbow Patient Instructions: Scribed for Candy Valentine PA-C, by Cameron Herring forensic medical examiner, on 02/01/2024 at 2:15 PM Candy RANGEL PA-C, have personally reviewed and agree with the information entered by the scribe. Coding Level of Care Code New Pt Level 3 (50678) Diagnoses Olecranon bursitis, left elbow M70.22
[2024-02-01 14:28] VITALS: BMI 29.9
== END 2024-02-01 14:51 | disposition home or self-care (01) ==
PROVIDERS: PCP Nurse Practitioner Family; Visit Provider Physician Assistant
DX: M70.22 Olecranon bursitis, left elbow (principal)
CPT/HCPCS: 99203

== ENCOUNTER 2024-02-09 07:59 | Outpatient (REF) | payer OTHER, SELFPAY ==
[2024-02-09 10:26] LABS: MANUAL DIFF FLAG NO
[2024-02-09 10:37] LABS: Appearance Urine Clear; Color Urine Yellow; Glucose Urine UA >=1000 mg/dL (Negative); Leukocyte Esterase Urine Negative (Negative); Nitrite Urine Negative (Negative); PH 5.5 (5.0-9.0); Specific Gravity - Urine >= 1.030 (1.005-1.025); UMIC TRIGGER UACC YES; Urine Blood Negative (Negative); Urine Ketones Negative (Negative); Urine Protein Negative (Neg-Trace)
[2024-02-09 10:39] LABS: Basophils Absolute Auto 0.1 X10*3/uL (0.0-0.2); Basophils Percent Auto 1.4 % (0-2); Eosinophils Absolute Auto 0.1 X10*3/uL (0.0-0.4); Eosinophils Percent Auto 1.2 % (0-4); Hematocrit 38.8 % (42.0-52.0); Hemoglobin 12.8 g/dl (14.0-18.0); Imm Gran Abs Auto 0.01 X10*3/uL (0.00-0.03); Imm Gran Pct Auto 0.2 % (0.0-0.4); Lymphocytes Absolute Auto 1.5 X10*3/uL (1.2-4.9); Lymphocytes Percent Auto 34.4 % (20-40); Mean Corpuscular Hemoglobin 28.2 pg (27.0-33.0); Mean Corpuscular Volume 85.5 fL (80.0-98.0); Mean Platelet Volume 10.3 fL (9.4-12.4); Monocytes Absolute Auto 0.4 X10*3/uL (0.1-1.2); Monocytes Percent Auto 10.4 % (2-11); Neutrophils Absolute Auto 2.2 x10*3/uL (2.0-8.3); Neutrophils Percent Auto 52.4 % (45-73); Platelet Count 239 X10*3/uL (160-400); Red Blood Count 4.54 X10*6/uL (4.60-5.80); Red Cell Distribution Width 13.5 % (11.0-16.0); White Blood Count 4.2 X10*3/uL (4.8-10.8)
[2024-02-09 10:48] LABS: Bacteria Urine None Seen (None Seen); Hyaline Casts Urine 0-2 /LPF (0-2); RBC Urine 0-2 /HPF (0-2); Squamous Epithelial Cell Urine 0-2 /HPF (0-2); WBC Urine 0-5 /HPF (0-5)
[2024-02-09 10:51] LABS: Alanine Aminotransferase 15 U/L (0-40); Albumin Level 4.1 g/dL (3.5-5.0); Alkaline Phosphatase 44 U/L (39-117); Anion Gap 10 (12-20); Aspartate Amino Transferase 16 U/L (5-37); Bilirubin Total 0.5 mg/dL (0.0-1.0); Blood Urea Nitrogen 17 mg/dL (9-16); Calcium 9.4 mg/dL (8.4-10.2); Carbon Dioxide 27 mmol/L (22-29); Chloride 108 mmol/L (96-108); Cholesterol 137 mg/dL (<200); Estimated Glomerular Filt Rate > 60; Glucose Fasting 101 mg/dL (60-99); HDL Cholesterol 49 mg/dL (>40); LDL Cholesterol Calculated 74 mg/dL (<100); Potassium 4.1 mmol/L (3.3-5.1); Sodium 141 mmol/L (135-145); Total Protein 6.9 g/dL (6.5-8.0); Triglycerides 74 mg/dL (<150)
[2024-02-09 10:58] LABS: PSA,Total (Free>4and<10) 4.46 ng/mL (0.00-4.00)
[2024-02-09 11:08] LABS: TSH reflex Free T4 1.99 uIU/mL (0.32-4.0)
[2024-02-09 11:33] LABS: Microalbum/Creatinine Ratio Ur 5.4 ug/mg cr (<30)
[2024-02-10 12:44] LABS: Free Prostate Spec Ag 0.4 ng/mL; Percent Free Prostate Spec Ag 10 % (calc) (>25)
== END 2024-02-09 08:00 | disposition home or self-care (01) ==
LOC: HO.HMGCLDS 07:59
PROVIDERS: Internal Medicine Endocrinology, Diabetes & Metabolism; PCP Nurse Practitioner Family; Referring Provider Urology; Visit Provider Nurse Practitioner Family
DX: Z00.00 Encounter for general adult medical examination without abnormal findings (principal); Z12.5 Encounter for screening for malignant neoplasm of prostate; R97.20 Elevated prostate specific antigen [PSA]; E11.65 Type 2 diabetes mellitus with hyperglycemia
CPT/HCPCS: 36415; 80053; 80061; 81001; 82043; 82570; 84153; 84154; 84443; 85025

== ENCOUNTER 2024-02-16 09:59 | Outpatient (AMB) | payer OTHER, SELFPAY ==
--- NOTE | 2024-02-16 10:01 | MHC.PC.OV ---
Vital Signs 02/16/24 10:04 Height 6 ft 5 in Weight 249 lb BMI 29.5 BP 114/68 Blood Pressure Location Rt brachial Position Sitting Pulse 74 Pulse Source Pulse Oximeter Pulse Oximetry (%) 99 Oxygen Delivery Method Room Air Intake Visit Reasons: follow up Intake Note: Patient here to f/u on cough from lizzy inhibitor. pt states cough is still present just not as bad. Allergies lisinopril Adverse Reaction (Mild, Verified 02/16/24 10:33) Cough Medication List - Last Reconciled 02/16/24 by OCTAVIANO Bonner- aspirin (Adult Aspirin Regimen) 81 mg PO DAILY atorvastatin 80 mg PO DAILY blood-glucose meter (Tellme Verio Flex Meter) As directed blood-glucose sensor ([employer] G7 Sensor device) As directed change every 10 days cetirizine (Zyrtec) 10 mg PO DAILY PRN doxazosin 4 mg PO BEDTIME 90 days dulaglutide (Trulicity) 4.5 mg (0.5 mL) subcut QWEEK empagliflozin (Jardiance) 25 mg PO DAILY fenofibrate 160 mg PO DAILY finasteride 5 mg PO .QOD 90 days insulin degludec (Tresiba FlexTouch U-200 insulin) 50 units (0.25 mL) subcut BEDTIME 90 days losartan 12.5 mg (1/2 x 25 mg) PO DAILY 90 days metformin 1,000 mg PO BID 90 days omega-3 acid ethyl esters 2 caps PO BID pen needle, diabetic (BD Clarissa 2nd Gen Pen Needle) As directed twice a day pioglitazone 30 mg PO DAILY tadalafil 20 mg PO ONCE PRN 30 days tadalafil 10 mg PO DAILY 90 days trazodone 150 mg PO BEDTIME PRN 90 days Tobacco use date assessed: 11/07/23 Dental Screening Dental Screen Date: 11/07/23 HPI follow up HPI Details HTN: Blood pressure is stable, managed with losartam 12.5mg. Pt was having a cough due to lisinopril which was stopped. Pt reports that the cough has improved with switching to losartan. Denies chest pain, shortness of breath, headache, dizziness, and blurred vision. Pt is a diabetic, sees endo. Anemia noted on last labs. Pt does report cold intolerance. Will repeat labs and order FIT testing. Denies fatigue and blood in stool. [facility] Medical History Tubular adenoma Back pain with history of spinal surgery Neuropathy RLS (restless legs syndrome) Tendonitis Hyperparathyroidism Bronchitis LJ (obstructive sleep apnea) Type 2 diabetes mellitus with polyneuropathy Hyperlipidemia LDL goal <100 Hypertriglyceridemia Surgical History Hx of excision of mass History of esophagogastroduodenoscopy (EGD) H/O colonoscopy Hx of removal of cyst (08/17/22) History of anterior cruciate ligament surgery History of rotator cuff surgery Family History Father Colon cancer Mother Breast cancer Diabetes mellitus Sister Brain cancer Sister No problems noted. Sister No problems noted. Sister No problems noted. Brother Substance use disorder Brother No problems noted. Brother No problems noted. Son No problems noted. Social History Housing: House Patient Tobacco Use Status: Former Tobacco user Quit Date: 20 years ago Tobacco use type: Cigarette Cigarettes Per Day: 10 Years Smoked: 15 e-Cigarette/Vaping Use: Never Used Second Hand Smoke Exposure: No service: No Current occupational status: employed Current occupation: [employer] Current occupational exposures/hazards: No Cognitive needs: No Hearing needs: No Vision needs: No Questionnaire Thrive Questionnaire Date Thrive assessed: 06/07/22 CASSIE-7 AMB Questionnaire CASSIE-7 Date CASSIE - 7 assessed: 06/07/22 Source: Developed by Drs. Jose Vee, Graciela Gracia, Aldo Silverman and colleagues, with an educational misha from [employer]. Review of Systems Const Reports as per HPI Physical exam (Primary Care) Vital Signs: Last Vital Signs Pulse 74 02/16/24 10:04 BP 114/68 02/16/24 10:04 Pulse Ox 99 02/16/24 10:04 Oxygen Delivery Method Room Air 02/16/24 10:04 BMI result Body Mass Index 29.5 Tobacco/Smoking Status: Tobacco use Status Tobacco use date assessed 11/07/23 02/16/24 10:03 Patient Tobacco Use Status Former Tobacco user 02/16/24 10:03 Tobacco use type Cigarette 02/16/24 10:03 e-Cigarette/Vaping Use Never Used 02/16/24 10:03 Thrive Assessment: Date of Thrive Assessment Date Thrive assessed 06/07/22 02/16/24 10:03 Const General: cooperative Orientation/consciousness: patient oriented x3 Resp Effort & Inspection: normal respiratory effort Auscultation: clear to auscultation bilaterally Cardio Rate: regular rate Rhythm: regular rhythm Heart sounds: S1 normal heart sound present and S2 normal heart sound present Neuro General: patient oriented x3 Psych Appearance: grossly normal Mental Status: mental status grossly normal Speech and movement: Normal speech and movement present Affect: normal affect Attitude: cooperative Thought process: Normal thought process present Thought content: Normal thought content present Insight: Good insight present (Psych) Judgement: Good judgement present (Psych) Assessment and Plan Assessment & Plan (1) Anemia: Code(s): D64.9 - Anemia, unspecified Plan: Labs and FIT testing ordered (2) Vitamin D deficiency: Code(s): E55.9 - Vitamin D deficiency, unspecified Plan: Labs ordered (3) Cough due to LIZZY inhibitor: Code(s): R05.8 - Other specified cough; T46.4X5A - Adverse effect of sclolxuchry-qrmupcdctn-vhpmjo inhibitors, initial encounter Plan: better since switching to ARB Plan The patient agreed to the use of a medical assistant secretary for this encounter. Scribed for JOSE LUIS Diaz by Leora Aden medical assistant secretary, on 02/16/2024 at 10:15 EST. Orders: Orders Ferritin Today D64.9 - Anemia, unspecified Vitamin D 25-OH Total Today E55.9 - Vitamin D deficiency, unspecified Protein Electrophoresis, Serum Today D64.9 - Anemia, unspecified Complete Blood Count Auto Diff Today D64.9 - Anemia, unspecified IRON PROFILE Today D64.9 - Anemia, unspecified Vitamin B12 and Folate Today D64.9 - Anemia, unspecified Hemoglobin Electrophoresis Today D64.9 - Anemia, unspecified Lactate Dehydrogenase Today D64.9 - Anemia, unspecified FITS Today D64.9 - Anemia, unspecified Medications: Refilled trazodone 150 mg PO BEDTIME PRN 90 tabs 5RF insomnia 90 days Coding Level of Care Code Est Pt Level 3 (64471) Diagnoses Anemia D64.9 Vitamin D deficiency E55.9 Cough due to LIZZY inhibitor R05.8; T46.4X5A
[2024-02-16 10:04] VITALS: BP 114/68; PULSE 74; O2SAT 99; BMI 29.5
== END 2024-02-16 11:14 | disposition home or self-care (01) ==
PROVIDERS: PCP Nurse Practitioner Family; Visit Provider Nurse Practitioner Family
DX: D64.9 Anemia, unspecified (principal); E55.9 Vitamin D deficiency, unspecified; R05.8 Other specified cough; T46.4X5A Adverse effect of angiotensin-converting-enzyme inhibitors, initial encounter
CPT/HCPCS: 99213

== ENCOUNTER 2024-02-27 08:12 | Outpatient (AMB) | payer OTHER, SELFPAY ==
[2024-02-27 08:14] VITALS: BP 104/60; PULSE 92; BMI 29.6
--- NOTE | 2024-02-27 08:14 | A.OFFVIS_ITS ---
Vital Signs 02/27/24 08:14 Height 6 ft 5 in Weight 249 lb 5.485 oz BMI 29.6 BP 104/60 Blood Pressure Location Lt brachial Position Sitting Pulse 92 Pulse Source Pulse Oximeter Intake Visit Reasons: T2DM/CONFIRMED Intake Note: Patient present today to follow up on Type 2 Diabetes Mellitus. Last Diabetic Eye exam: [facility] 01/12/24 Last Podiatry Visit: Unsure but within the year Random Glucose: 134mg/dl HgA1C: 6.6% Food Counter Worker Required: No Accompanied by: Self / Same As Patient Allergies lisinopril Adverse Reaction (Mild, Verified 02/27/24 08:19) Cough HPI Comments Details: Patient is 58 yo male with DM type 2 diagnosed around 2001 who presents for continued management of diabetes. Past medical history: DM2, HD, LJ, hyperparathyroidism, RLS, HTG, hx of foot cellulitis 2019 Micro and macrovascular complications: + neuropathy, Diabetes medications: Tresiba u200 units 20 at dinner , metformin 1000mg BID Trulicity 3mg Qwkly , Jardiance 25mg, pioglitazone 30mg. (Had previously been on Humalog 10-12 for breakfast, lunch, 10-15 for dinner, but rarely used ) Blood glucose monitoring. avg glucose 143 with GMI of 6.7 83% in range with 16% high : We are not able to download his Dexcom Symptoms reported: +numbness, tingling, cramping in feet Hypoglycemia: occasional overnight hypoglycemia Hyperglycemia:denies daytime urinary frequency, +nocturia (1-2x /night) , denies polydypsia exercice: Walks with 3 times week for 20 minutes to half hour. Eye exam: last appt 1 mo ago no retinopathy. Needs to make appt Family hx of mother with Type 2 DM Laboratory Tests 03/20/21 03/20/21 03/20/21 11:35 11:35 11:35 Creatinine 0.98 Estimated GFR > 60 Hgb A1c (Clinic) Triglycerides 111 Cholesterol 164 LDL Cholesterol Direct 94 LDL Cholesterol, Calc 89 HDL Cholesterol 53 Microalb/Creat Ratio 8.0 05/25/21 08:10 Creatinine Estimated GFR Hgb A1c (Clinic) 9.6 H Triglycerides Cholesterol LDL Cholesterol Direct LDL Cholesterol, Calc HDL Cholesterol Microalb/Creat Ratio [facility] Medical History Tubular adenoma Back pain with history of spinal surgery Neuropathy RLS (restless legs syndrome) Tendonitis Hyperparathyroidism Bronchitis LJ (obstructive sleep apnea) Type 2 diabetes mellitus with polyneuropathy Hyperlipidemia LDL goal <100 Hypertriglyceridemia Surgical History Hx of excision of mass History of esophagogastroduodenoscopy (EGD) H/O colonoscopy Hx of removal of cyst (08/17/22) History of anterior cruciate ligament surgery History of rotator cuff surgery Family History Father Colon cancer Mother Breast cancer Diabetes mellitus Sister Brain cancer Sister No problems noted. Sister No problems noted. Sister No problems noted. Brother Substance use disorder Brother No problems noted. Brother No problems noted. Son No problems noted. Social History Housing: House Patient Tobacco Use Status: Former Tobacco user Quit Date: 20 years ago Tobacco use type: Cigarette Cigarettes Per Day: 10 Years Smoked: 15 e-Cigarette/Vaping Use: Never Used Second Hand Smoke Exposure: No service: No Current occupational status: employed Current occupation: the [employer] Current occupational exposures/hazards: No Cognitive needs: No Hearing needs: No Vision needs: No Physical Exam Vital Signs: Last Vital Signs Pulse 92 02/27/24 08:14 BP 104/60 02/27/24 08:14 BMI result Body Mass Index 29.6 Absence of Cushingoid features. Absence of acromegalic features. Neck exam reveals nl size thyroid about 15 gms. No thyroid nodules palpable. No carotid bruits present. Lungs CTA. Heart S1 S2, Reg R/R. No M/R/ G. Skin exam reveals absence of vitiligo or acanthosis nigricans. Abdominal exam reveals Soft NT/ND with NA BS. No organomegaly present. Neck Other: . Extrem Other: Visual exam of foot performed. No ulcerations or open lesions. No onchomycosis, no callouses.Pulses 2 + distally Sensation decreased to monofilament exam. Vibratory sensation sensed is decreased with 128 Hz tuning fork Results AMB Hemoglobin A1c AMB Hemoglobin A1c 6.6 % Last Edit by TIMBO Heard on 02/27/24 08:54 Assessment & Plan Assessment & Plan (1) Type 2 diabetes mellitus with polyneuropathy: Code(s): E11.42 - Type 2 diabetes mellitus with diabetic polyneuropathy Category: Medical Plan: This is a 57-year-old white male with history of type 2 diabetes being treated metformin, Actos, JardianceTrulicity and basal insulin with good improved glycemic control and known microvascular complications namely neuropathy. Plan is decreased to Toujeo to 10 units. Can discontinue the Toujeo if continued morning hypoglycemia. Will refer To podiatry. Switch Salas to Dexcom at insurance request (2) Uncontrolled diabetes mellitus with hyperglycemia: Code(s): E11.65 - Type 2 diabetes mellitus with hyperglycemia Category: Medical Plan: See above plan for diabetes Orders: Orders AMB Hemoglobin A1c Today E11.42 - Type 2 diabetes mellitus with diabetic polyneuropathy, E11.65 - Type 2 diabetes mellitus with hyperglycemia, Z13.9 - Encounter for screening, unspecified Medications: New [diabetic shoes] extra depth orthopedic shoes ( 1 pair ) with customize heat molded multi density inner soles ( 3 pair) Dispense 1 Sig: As directed DX: And IDDM /polyneuropathy ( E11 0.42 ); hammertoe foot deformity ( M 20.41, and 20.42 ) pre ulcerative skin lesion ( L 85.1 ) Diagnosis ( E11 0.42 ) type 2 diabetes with polyneuropathy 1 ea 0RF Changed From dulaglutide (Trulicity) 4.5 mg (0.5 mL) subcut QWEEK 6 mL 1RF To dulaglutide (Trulicity) 4.5 mg (0.5 mL) subcut QWEEK 90 days 6.5 mL 1RF Refilled blood-glucose sensor (Dexcom G7 Sensor device) As directed change every 10 days 3 ea 4RF metformin 1,000 mg PO BID 90 days 180 tabs 1RF E11.42 - Type 2 diabetes mellitus with diabetic polyneuropathy empagliflozin (Jardiance) 25 mg PO DAILY 90 tabs 1RF E11.42 - Type 2 diabetes mellitus with diabetic polyneuropathy Coding Level of Care Code Est Pt Level 4 (28552) Diagnoses Type 2 diabetes mellitus with polyneuropathy E11.42 Uncontrolled diabetes mellitus with hyperglycemia E11.65
[2024-02-27 08:25] LABS: Glucose, Whole Blood 134 mg/dL (60-115)
== END 2024-02-27 08:38 | disposition home or self-care (01) ==
PROVIDERS: PCP Nurse Practitioner Family; Visit Provider Internal Medicine Endocrinology, Diabetes & Metabolism
DX: Z13.9 Encounter for screening, unspecified (principal); E11.65 Type 2 diabetes mellitus with hyperglycemia; E11.42 Type 2 diabetes mellitus with diabetic polyneuropathy
CPT/HCPCS: 99214

== ENCOUNTER → 2024-02-27 08:12 | Outpatient (BNVA) | payer OTHER, SELFPAY | PROVIDERS: PCP Nurse Practitioner Family; Visit Provider Internal Medicine Endocrinology, Diabetes & Metabolism | DX: E11.42 Type 2 diabetes mellitus with diabetic polyneuropathy (principal); E11.65 Type 2 diabetes mellitus with hyperglycemia; Z79.4 Long term (current) use of insulin | CPT/HCPCS: 82947; 83036 ==

== ENCOUNTER 2024-05-08 08:35 | Outpatient (AMB) | payer OTHER, SELFPAY ==
--- NOTE | 2024-05-08 08:37 | MHC.OFFVIS ---
Intake Visit Reasons: 6m/PSA(set) Intake Note: Patient is Present for Telephone Follow Up PSA Urology Med: Doxazosin, Finasteride, Tadalafil Antibiotic Allergy:None Blood Thinner: Aspirin Diabetic Medication: dee dee Santos Financial Operations Consultant Required: No Allergies lisinopril Adverse Reaction (Mild, Verified 05/08/24 08:38) Cough HPI Comments Details: Damien is a pleasant male. He is a patient Dr. Kong. He seen for the following urologic conditions - elevated PSA - erectile dysfunction with diabetes - lower urinary tract symptoms Telemedicine Evaluation 15 min Consultation Domains Income Video Follow-up response to daily tadalafil 10 mg Continuing to be effective On maximum oral therapy PSA 4.0 Free 10% - this occurred cutting back to 1/2 tab 3 times per week - still some libido suppression Discussed other options including vacuum pump, injectable therapy, penile prosthetic 6 month follow-up office PSA Elevated PSA Labs - 06/14 4.6, 09/14 4.9 16% Discussed risk factors no family history Prostate biopsy 10/14 3 cores small acinar proliferation Current therapy finasteride - Tuesday, Tuesday, Tuesday - 05/15 2.7. 11/16 2.9, 02/14 4.0 Lower urinary tract symptoms Urinary urgency and frequency, nocturia x3, weakness of stream, hesitancy No prior therapy Given combination with erectile dysfunction initiation daily tadalafil Erectile dysfunction setting of diabetes Diabetic diagnosis 2014 On combination therapy - 5mg daily tadalaifil with 20mg on demand Recent HbA1c 9.9 with elevated cholesterol Background of sleep apnea under adjustment Labs 09/14 T565 [facility] Medical History Tubular adenoma Back pain with history of spinal surgery Neuropathy RLS (restless legs syndrome) Tendonitis Hyperparathyroidism Bronchitis LJ (obstructive sleep apnea) Type 2 diabetes mellitus with polyneuropathy Hyperlipidemia LDL goal <100 Hypertriglyceridemia Surgical History Hx of excision of mass History of esophagogastroduodenoscopy (EGD) H/O colonoscopy Hx of removal of cyst (08/17/22) History of anterior cruciate ligament surgery History of rotator cuff surgery Family History Father Colon cancer Mother Breast cancer Diabetes mellitus Sister Brain cancer Sister No problems noted. Sister No problems noted. Sister No problems noted. Brother Substance use disorder Brother No problems noted. Brother No problems noted. Son No problems noted. Social History Housing: House Patient Tobacco Use Status: Former Tobacco user Tobacco use type: Cigarette Cigarettes Per Day: 10 Years Smoked: 15 e-Cigarette/Vaping Use: Never Used Second Hand Smoke Exposure: No service: No Current occupational status: employed Current occupation: [employer] Current occupational exposures/hazards: No Cognitive needs: No Hearing needs: No Vision needs: No Review of Systems Const All systems reviewed & are unremarkable except as noted in HPI and below Reports no additional complaints Resp Reports no additional complaints GI Reports no additional complaints Reports as per HPI Musc Reports no additional complaints Physical Exam Telemedicine evaluation Appropriate responses Regular breathing rate and rhythm HEENT Head: Yes normal to inspection Ears: hearing grossly normal bilaterally Eyes General: appearance normal, both eyes and all related structures Neck Neck: Yes normal visual inspection Chest Chest palpation & inspection: normal inspection of the chest Resp Effort & Inspection: normal respiratory effort and able to speak in complete sentences Telehealth Telehealth Telehealth Platform: [employer] Location of provider rendering services: practice address Location of patient: address on file Patient Identification confirmed using: Name, : Yes Telehealth method: video Patient verbally consented to treatment: Yes Patient verbally consented to billing insurance company: Yes Patient informed of any privacy concerns related to visit: Yes Minutes spent on Phone/Video with Pt.: 15 Assessment & Plan Assessment & Plan (1) Elevated PSA: Comment: 10/14 Prostate Biopsy 3 core MIKIE Code(s): R97.20 - Elevated prostate specific antigen [PSA] Category: Medical (2) BPH loc w urin obs/LUTS: Code(s): N40.1 - Benign prostatic hyperplasia with lower urinary tract symptoms Category: Medical (3) Erectile dysfunction associated with type 2 diabetes mellitus: Code(s): E11.69 - Type 2 diabetes mellitus with other specified complication; N52.1 - Erectile dysfunction due to diseases classified elsewhere Category: Medical Plan Refill prescription Six-month follow-up PSA office Orders: Orders PSA,Total (Free>4and<10) 6 Months R97.20 - Elevated prostate specific antigen [PSA] Medications: Refilled tadalafil Take daily for prostate and erections 10 mg PO DAILY 90 days 90 tabs 1RF E11.69 - Type 2 diabetes mellitus with other specified complication, N40.1 - Benign prostatic hyperplasia with lower urinary tract symptoms, N52.1 - Erectile dysfunction due to diseases classified elsewhere Patient Instructions: Imaging studies, laboratory and physical exam results were discussed and reviewed in detail. No major barriers to patient understanding were identified. An opportunity to ask questions regarding the treatment plan was provided. All questions were answered. The patient expressed understanding and agreement with the above treatment plan. The patient is aware they should contact our office by phone for worsening of their current condition or the appearance of new urologic symptoms. Compliance is encouraged with any medications and followup testing that is ordered. It is a privilege to participate in the urologic care of your patient. If you have any questions or concerns regarding treatment for the above conditions, or other urologic issues, please do not hesitate to contact me. The office telephone contact is [phone]. This note is constructed using voice recognition software. While every effort has been made to ensure accuracy chief of hospital medicine errors may have been included. Yours sincerely, Dr Grant Fitch MD, [facility] - Urology Providers of Expert, Compassionate Care for the Genitourinary System Coding Level of Care Code Tele Est Pt Level 3 (21745) Diagnoses Elevated PSA R97.20 BPH loc w urin obs/LUTS N40.1 Erectile dysfunction associated with type 2 diabetes mellitus E11.69; N52.1
== END 2024-05-08 10:13 | disposition home or self-care (01) ==
LOC: HO.HUSH 08:35
PROVIDERS: PCP Nurse Practitioner Family; Visit Provider Urology
DX: R97.20 Elevated prostate specific antigen [PSA] (principal); N40.1 Benign prostatic hyperplasia with lower urinary tract symptoms; E11.69 Type 2 diabetes mellitus with other specified complication; N52.1 Erectile dysfunction due to diseases classified elsewhere
CPT/HCPCS: 99213

== ENCOUNTER → 2024-05-08 08:35 | Outpatient (BNVA) | payer OTHER, SELFPAY | PROVIDERS: PCP Nurse Practitioner Family; Visit Provider Urology ==

== ENCOUNTER 2024-05-14 08:59 | Outpatient (AMB) | payer OTHER, SELFPAY ==
--- NOTE | 2024-05-14 10:10 | AM.OFFWIN_ITS ---
Intake Vital Signs 05/14/24 10:12 Height 6 ft 5 in Weight 249 lb BMI 29.5 BP 114/68 Blood Pressure Location Rt brachial Position Sitting Pulse 73 Pulse Source Pulse Oximeter Temp 98.4 F Temp Source Oral Pulse Oximetry (%) 97 Oxygen Delivery Method Room Air Intake Visit Reasons: EP Cough, congestion [phone] Intake Note: pt here c/o cough and congestion, headache, pressure, SOB. Started 2 wks ago Patient Tobacco Use Status: Former Tobacco user Allergies lisinopril Adverse Reaction (Mild, Verified 05/14/24 10:12) Cough Do you need a note to return to daycare/school/sports/work: No HPI HPI Comments History of Present Illness Details Patient is a 58-year-old male complaining of 10 days of a productive cough which has green sputum, headache, head congestion, chest congestion, sinus pain shortness of breath and chest pressure. He has been taking NyQuil and Da yQuil with no improvement. He denies any sick contacts. He states he is tested for COVID twice, both times he tested negative. He denies any ear pain or trouble breathing or history of asthma or COPD. [facility] Medical History Tubular adenoma Back pain with history of spinal surgery Neuropathy RLS (restless legs syndrome) Tendonitis Hyperparathyroidism Bronchitis LJ (obstructive sleep apnea) Type 2 diabetes mellitus with polyneuropathy Hyperlipidemia LDL goal <100 Hypertriglyceridemia Surgical History Hx of excision of mass History of esophagogastroduodenoscopy (EGD) H/O colonoscopy Hx of removal of cyst (08/17/22) History of anterior cruciate ligament surgery History of rotator cuff surgery Family History Father Colon cancer Mother Breast cancer Diabetes mellitus Sister Brain cancer Sister No problems noted. Sister No problems noted. Sister No problems noted. Brother Substance use disorder Brother No problems noted. Brother No problems noted. Son No problems noted. 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[employer] Current occupational exposures/hazards: No Cognitive needs: No Hearing needs: No Vision needs: No Review of Systems Const All systems reviewed & are unremarkable except as noted in HPI and below Physical Exam Vital Signs: Last Vital Signs Temp 98.4 F 05/14/24 10:12 Pulse 73 05/14/24 10:12 BP 114/68 05/14/24 10:12 Pulse Ox 97 05/14/24 10:12 Oxygen Delivery Method Room Air 05/14/24 10:12 BMI result Body Mass Index 29.5 Const General: cooperative, healthy appearing, comfortable and no acute distress Orientation/consciousness: patient oriented x3 Limitations: no limitations HEENT Head: Yes normal to inspection Ears: hearing grossly normal bilaterally, external ears normal and TM's normal bilaterally General nose exam: Normal external nose present, Normal nares present and No nasal discharge present Face and sinus: Yes normal facial exam and Yes sinus tenderness Mouth: Normal oral and palatal mucosa present and moist mucous membranes Throat: Yes tonsils normal, Yes uvula midline and Yes posterior oropharynx abnormal (Erythema) Eyes General: appearance normal, both eyes and all related structures Neck Neck: Yes normal visual inspection Resp Effort & Inspection: normal respiratory effort, able to speak in complete sentences, Actively coughing, no respiratory distress, not tachypneic, no tripod positioning and no use of accessory muscles Auscultation: clear to auscultation bilaterally Cardio Rate: regular rate Rhythm: regular rhythm Heart sounds: normal S1 and S2 Skin General skin exam: no rashes or lesions noted Neuro General: patient oriented x3 Extrem General: Yes normal to inspection and Yes no clubbing, cyanosis or edema Assessment & Plan Assessment & Plan (1) Sinusitis: Code(s): J32.9 - Chronic sinusitis, unspecified Qualifiers: Sinusitis location: frontal Chronicity: acute Recurrence: non- recurrent Qualified Code(s): J01.10 - Acute frontal sinusitis, unspecified Plan: Rx inhaler for cough and Augmentin for sinusitis as it has been 10 days. Plan see above Medications: New amoxicillin-pot clavulanate 875-125 mg 1 tab PO Q12H 10 tabs 0RF albuterol sulfate 90 mcg/actuation 2 puffs inhalation Q6H PRN 8.5 grams 0RF shortness of breath or wheezing or cough Coding Level of Care Code Est Pt Level 3 (18628) Diagnoses Acute non-recurrent frontal sinusitis J01.10 Sinusitis location: frontal Chronicity: acute Recurrence: non-recurrent
[2024-05-14 10:12] VITALS: BP 114/68; PULSE 73; TEMP 36.9; O2SAT 97; BMI 29.5
== END 2024-05-14 10:55 | disposition home or self-care (01) ==
PROVIDERS: PCP Nurse Practitioner Family; Visit Provider Physician Assistant
DX: J01.10 Acute frontal sinusitis, unspecified (principal)
CPT/HCPCS: 99213

== ENCOUNTER 2024-07-02 09:09 | Outpatient (AMB) | payer OTHER, SELFPAY ==
[2024-07-02 10:32] VITALS: BP 122/70; PULSE 82; TEMP 36.7; O2SAT 97; BMI 28.6
--- NOTE | 2024-07-02 10:32 | MHC.OFFWIV ---
Intake Vital Signs 07/02/24 10:32 Height 6 ft 5 in Weight 241 lb BMI 28.6 BP 122/70 Blood Pressure Location Lt brachial Position Sitting Pulse 82 Pulse Source Pulse Oximeter Temp 98.0 F Temp Source Oral Pulse Oximetry (%) 97 Oxygen Delivery Method Room Air Intake Visit Reasons: EP-chest weezing [phone] Intake Note: pt c/o chest weezing and cough. Covid POS Thrday. Negative Tuesday and Tuesday Patient Tobacco Use Status: Former Tobacco user Allergies lisinopril Adverse Reaction (Mild, Verified 07/02/24 10:33) Cough Do you need a note to return to daycare/school/sports/work: No HPI HPI Comments History of Present Illness Details Damien presents to the walk-in today for sick visit Tested positive for COVID 10 days ago, retested last week and was negative x2 Has been suffering with cough and wheezing Has used albuterol in the past but no longer as inhaler Denies fever, chills, weakness, nausea, vomiting, diarrhea Cough is productive of green sputum, worse in the morning Endorses wheezing Denies chest pain PFSH Medical History Tubular adenoma Back pain with history of spinal surgery Neuropathy RLS (restless legs syndrome) Tendonitis Hyperparathyroidism Bronchitis LJ (obstructive sleep apnea) Type 2 diabetes mellitus with polyneuropathy Hyperlipidemia LDL goal <100 Hypertriglyceridemia Surgical History Hx of excision of mass History of esophagogastroduodenoscopy (EGD) H/O colonoscopy Hx of removal of cyst (08/17/22) History of anterior cruciate ligament surgery History of rotator cuff surgery Family History Father Colon cancer Mother Breast cancer Diabetes mellitus Sister Brain cancer Sister No problems noted. Sister No problems noted. Sister No problems noted. Brother Substance use disorder Brother No problems noted. Brother No problems noted. Son No problems noted. 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[employer] Current occupational exposures/hazards: No Cognitive needs: No Hearing needs: No Vision needs: No Review of Systems Const All systems reviewed & are unremarkable except as noted in HPI and below Physical Exam Vital Signs: Last Vital Signs Temp 98.0 F 07/02/24 10:32 Pulse 82 07/02/24 10:32 BP 122/70 07/02/24 10:32 Pulse Ox 97 07/02/24 10:32 Oxygen Delivery Method Room Air 07/02/24 10:32 BMI result Body Mass Index 28.6 General: awake, alert, oriented. Answers questions appropriately. Fully engaged in examination. Skin: warm, dry, intact HEENT: Normocephalic. Hearing intact. Cardiac: External chest normal in appearance. Respiratory: Positive cough, expiratory wheezing left lower lobe Abdomen: without gross distension. MS: No obvious swelling or deformities. Neurological: Oriented to person, place, time and situation. Thought process intact. No gait abnormalities appreciated. Psychiatric: Appropriate mood and affect. Good judgment and insight. Results Reviewed Results Reviewed: Chest x-ray ordered and independently reviewed: No effusion or infiltrate identified Assessment & Plan Assessment & Plan (1) Cough: Code(s): R05.9 - Cough, unspecified (2) Wheezing: Code(s): R06.2 - Wheezing Plan Chest x-ray ordered and independently reviewed, no effusion or infiltrate visualized Z-Roby as directed Prednisone 40 mg p.o. daily x5 days, patient advised on cautions for use. Monitor blood sugars closely. Albuterol MDI refilled. Two puffs q.6 hours as needed for cough or wheezing codeine-guaifenesin 8-200 mg/5 mL 5 mL every 6 hours as needed for coughing. Patient advised on cautions for use. No driving while taking this medication. Do not take with alcohol or other AUDIOLOGY DOCTOR suppressants. Follow up with PCP or return here for any new or worsening symptoms. Orders: Orders XR chest 2V Today R05.9 - Cough, unspecified Medications: New azithromycin For 250 mg dose pack: take 500 mg today (day 1), then 250 mg for 4 days (days 2-5) PO 6 tabs 0RF prednisone 40 mg (2 x 20 mg) PO DAILY 10 tabs 0RF 5 days albuterol sulfate 90 mcg/actuation 2 puffs inhalation Q6H PRN 8.5 grams 0RF shortness of breath or wheezing codeine-guaifenesin 8-200 mg/5 mL 5 mL PO Q6H PRN 473 mL 0RF allergy symptoms Coding Level of Care Code Est Pt Level 4 (78426) Diagnoses Cough R05.9 Wheezing R06.2
== END 2024-07-02 11:20 | disposition home or self-care (01) ==
PROVIDERS: PCP Nurse Practitioner Family; Visit Provider Registered Nurse Emergency
DX: R05.9 Cough, unspecified (principal); R06.2 Wheezing
CPT/HCPCS: 99214

== ENCOUNTER 2024-07-02 10:46 | Outpatient (REF) | payer OTHER, SELFPAY ==
--- NOTE | ~2024-07-02 | XR_ITS ---
EXAMINATION: XR CHEST CLINICAL INFORMATION: Cough. COMPARISON: Chest radiograph 10/30/2021. TECHNIQUE: 2 views of the chest were obtained. FINDINGS: Normal appearance of the cardiomediastinal silhouette. Slightly increased interstitial markings compared to 2020. No focal consolidation, pleural effusion or pneumothorax. No acute osseous findings. XR/XR chest 2V IMPRESSION: Slight increase in interstitial markings which are indeterminate and could be related with small airways disease. Follow-up chest radiograph in 3-6 months is recommended. Electronically signed by: Trinidad Lassiter MD 07/02/2024 11:13 AM EDT
== END 2024-07-02 10:47 | disposition home or self-care (01) ==
LOC: HO.HMGCX 10:46
PROVIDERS: PCP Nurse Practitioner Family; Visit Provider Registered Nurse Emergency
DX: R05.9 Cough, unspecified (principal)
CPT/HCPCS: 71046

== ENCOUNTER 2024-07-16 08:32 | Outpatient (AMB) | payer OTHER, SELFPAY ==
[2024-07-16 08:34] VITALS: BP 94/64; PULSE 77; BMI 29.1
--- NOTE | 2024-07-16 08:34 | A.OFFVIS_ITS ---
Vital Signs 07/16/24 08:34 Height 6 ft 5 in Weight 245 lb 5.992 oz BMI 29.1 BP 94/64 Blood Pressure Location Lt brachial Position Sitting Pulse 77 Pulse Source Pulse Oximeter Intake Visit Reasons: T2DM/CONFIRMED Intake Note: Patient presents today for [facility] follow up visit. Last Diabetic Eye exam: 2022 Last Podiatry Visit: Doesn't have one Random Glucose: 120 mg/dl HgA1c: 7.3% 07/16/24 Magnetic Doctor Required: No Accompanied by: Self / Same As Patient Allergies lisinopril Adverse Reaction (Mild, Verified 07/16/24 08:38) Cough HPI HPI T2DM/CONFIRMED: Details: Patient is a 58-year-old male with a significant past medical history hyperlipidemia,, obstructive sleep apnea, and uncontrolled type 2 diabetes presenting today for a follow up regarding diabetes. He last saw Dr. Cobb in February. Endo: Dm-A1c is 7.4. He states he expected it to be a little bit elevated because the last month and a half he has been sick with different viruses. He is currently on Ozempic 1 mg weekly, Actos 30 mg daily, Jardiance 25 mg daily, metformin 1000 mg twice a day and Tresiba 25 units at bedtime. -trulicty was out of stock so switched to ozempic. Tolerates ozempic well. He states he does not want to adjust his medication. He is finally tolerating this regimen well and states that for the last month or so he was sick with different viruses that he finally feels better and just wants leave everything the same. CGM-Dexcom was not downloaded today but I was able to review his phone. GMI 6.9%, avg glucose 152. 74% in range. 25% hypoglycemic and 1% low -he states that the hypoglycemia is very rare and it happened while he was sick because he was adjusting his insulin regimen. -he does report today that his sensor fell off this morning and he is unable to replace this. He would like a new 1. he has been tested 2 x to confirm t2dm, mother type 2 dm -he is on an Arb and statin. -[facility] Podiatry. He does peripheral neuropathy and checks his feet every day. CV: Blood pressure today in the office is 94/64. He is on losartan 12.5 mg daily. His cholesterol is controlled with atorvastatin 80 mg. No chest pain or shortness on breath. He states that he is asymptomatic with the low blood pressure. [facility] Medical History Tubular adenoma Back pain with history of spinal surgery Neuropathy RLS (restless legs syndrome) Tendonitis Hyperparathyroidism Bronchitis LJ (obstructive sleep apnea) Type 2 diabetes mellitus with polyneuropathy Hyperlipidemia LDL goal <100 Hypertriglyceridemia Surgical History Hx of excision of mass History of esophagogastroduodenoscopy (EGD) H/O colonoscopy Hx of removal of cyst (08/17/22) History of anterior cruciate ligament surgery History of rotator cuff surgery Family History Father Colon cancer Mother Breast cancer Diabetes mellitus Sister Brain cancer Sister No problems noted. Sister No problems noted. Sister No problems noted. Brother Substance use disorder Brother No problems noted. Brother No problems noted. Son No problems noted. Social History Housing: House Patient Tobacco Use Status: Former Tobacco user Tobacco use type: Cigarette Cigarettes Per Day: 10 Years Smoked: 15 e-Cigarette/Vaping Use: Never Used Second Hand Smoke Exposure: No service: No Current occupational status: employed Current occupation: [employer] Current occupational exposures/hazards: No Cognitive needs: No Hearing needs: No Vision needs: No Physical Exam Vital Signs: Last Vital Signs Pulse 77 07/16/24 08:34 BP 94/64 07/16/24 08:34 BMI result Body Mass Index 29.1 Const Orientation/consciousness: patient oriented x3 Neck Neck: Yes no lymphadenopathy Thyroid: Thyroid normal Carotids: no bruits Resp Auscultation: clear to auscultation bilaterally Cardio Rate: regular rate Rhythm: regular rhythm Heart sounds: S1 normal heart sound present and S2 normal heart sound present Peripheral pulses: dorsalis pedis present Neuro General: patient oriented x3, gait normal, no focal motor deficits and absent sensation to monofilament Extrem Other: Skin intact. General: Yes normal to inspection Results AMB Hemoglobin A1c AMB Hemoglobin A1c 7.3 % Last Edit by TIMBO Marsh on 09/23/24 09:19 Results Reviewed Results Reviewed: Laboratory Last Values Glucose (Clinic) 120 mg/dL (60-115) H 07/16/24 08:45 Laboratory Tests 02/09/24 02/27/24 02/27/24 08:04 08:22 08:24 Creatinine 1.06 Estimated GFR > 60 Glucose (Clinic) 134 H Hgb A1c (Clinic) 6.6 H Triglycerides 74 Cholesterol 137 LDL Cholesterol, Calc 74 HDL Cholesterol 49 Urine Creatinine 127.50 Urine Microalbumin 7.0 Microalb/Creat Ratio 5.4 Assessment & Plan Assessment & Plan (1) Type 2 diabetes mellitus with polyneuropathy: Code(s): E11.42 - Type 2 diabetes mellitus with diabetic polyneuropathy Category: Medical Plan: Continue current regimen. Labs ordered to complete prior to next appointment. Dexcom sensor provided today in the office. Follow up in 3 months. Sooner if needed. Patient understands and agrees with this plan. (2) Hypertriglyceridemia: Code(s): E78.1 - Pure hyperglyceridemia Category: Medical Plan: Continue current regimen. Orders: Orders AMB Hemoglobin A1c Today E11.65 - Type 2 diabetes mellitus with hyperglycemia B Type Natriuretic Peptide 3 Months E11.42 - Type 2 diabetes mellitus with diabetic polyneuropathy, E78.1 - Pure hyperglyceridemia Comprehensive [place]. Panel Fast 3 Months E11.42 - Type 2 diabetes mellitus with diabetic polyneuropathy, E78.1 - Pure hyperglyceridemia Hemoglobin A1c 3 Months E11.42 - Type 2 diabetes mellitus with diabetic po lyneuropathy, E78.1 - Pure hyperglyceridemia Coding Level of Care Code Est Pt Level 4 (56213) Complex EM visit Add On G2211 Diagnoses Type 2 diabetes mellitus with polyneuropathy E11.42 Hypertriglyceridemia E78.1
[2024-07-16 08:50] LABS: Glucose, Whole Blood 120 mg/dL (60-115)
== END 2024-07-16 09:18 | disposition home or self-care (01) ==
PROVIDERS: PCP Nurse Practitioner Family; Visit Provider Physician Assistant
DX: E11.42 Type 2 diabetes mellitus with diabetic polyneuropathy (principal); E78.1 Pure hyperglyceridemia; E11.65 Type 2 diabetes mellitus with hyperglycemia

== ENCOUNTER → 2024-07-16 08:32 | Outpatient (BNVA) | payer OTHER, SELFPAY | PROVIDERS: PCP Nurse Practitioner Family; Visit Provider Physician Assistant | DX: E11.42 Type 2 diabetes mellitus with diabetic polyneuropathy (principal); E78.1 Pure hyperglyceridemia | CPT/HCPCS: 82947; 83036 ==

== ENCOUNTER 2024-08-06 07:31 | Outpatient (AMB) | payer OTHER, SELFPAY ==
[2024-08-06 07:43] VITALS: BP 92/52; PULSE 66; O2SAT 97; BMI 29.2
--- NOTE | 2024-08-06 07:43 | A.OFFPC_ITS ---
Vital Signs 08/06/24 07:43 Height 6 ft 5 in Weight 246 lb BMI 29.2 BP 92/52 L Blood Pressure Location Rt brachial Position Sitting Pulse 66 Pulse Source Pulse Oximeter Pulse Oximetry (%) 97 Oxygen Delivery Method Room Air Intake Visit Reasons: Annual PE Intake Note: Pt is here today for his PE Allergies lisinopril Adverse Reaction (Mild, Verified 07/16/24 08:38) Cough Tobacco use date assessed: 08/06/24 Dental Screening Dental Screen Date: 08/06/24 Did you have a dental visit in the last 12 months?: No Did you have a dental problem in the last 6 months where you did not have access to dental care?: No Was dental information given to patient?: No HPI Annual PE HPI Details Pt is here for a PE. Will order labs. Colon screen is up to date. PSA is up to date, sees urology. Pt is a diabetic, sees endo. Pt's blood pressure is low, though he denies any dizziness. Pt knows to stop losartan if he starts to get dizzy, especially when rising. [facility] Medical History Tubular adenoma Back pain with history of spinal surgery Neuropathy RLS (restless legs syndrome) Tendonitis Hyperparathyroidism Bronchitis LJ (obstructive sleep apnea) Type 2 diabetes mellitus with polyneuropathy Hyperlipidemia LDL goal <100 Hypertriglyceridemia Surgical History Hx of excision of mass History of esophagogastroduodenoscopy (EGD) H/O colonoscopy Hx of removal of cyst (08/17/22) History of anterior cruciate ligament surgery History of rotator cuff surgery Family History Father Colon cancer Mother Breast cancer Diabetes mellitus Sister Brain cancer Sister No problems noted. Sister No problems noted. Sister No problems noted. Brother Substance use disorder Brother No problems noted. Brother No problems noted. Son No problems noted. 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[employer] Current occupational exposures/hazards: No Cognitive needs: No Hearing needs: No Vision needs: No Questionnaire PHQ-9 Over the last 2 weeks, how often have you been bothered by any of the following problems? 08700 - PHQ-9 Billing: Patient declined-do not bill Source: Developed by Drs. Jose Vee, Graciela Gracia, Aldo Silverman and colleagues, with an educational misha from [employer]. Thrive Questionnaire Date Thrive assessed: 08/06/24 I am a: Patient What is your living situation today?: I have a steady place to live Within the past 12 months, did the food you bought not last and you didn't have the money to get more?: I choose not to answer this question Within the past 12 months, did you worry whether your food would run out before you got money to buy more?: I choose not to answer this question Do you have trouble paying for medicines?: I choose not to answer this question Do you have trouble getting transportation to medical appointments?: I choose not to answer this question Do you have trouble paying your heating and electricity bill?: I choose not to answer this question Do you have trouble taking care of your child, family member or friend?: I choose not to answer this question Do you have trouble with day-to-day activities such as bathing, preparing meals, shopping, managing finances, etc.?: I choose not to answer this question Are you interested in more education?: I choose not to answer this question Please select the resources that you would like help with: None Currently or been in a relationship where the following occur: I choose not to answer THRIVE Score: 0 AUDIT C Alcohol Use Questionnaire (AUDIT-C) 1. How often do you have a drink containing alcohol?: Never Total Score: 0 CASSIE-7 AMB Questionnaire CASSIE-7 Date CASSIE - 7 assessed: 08/06/24 Feeling nervous, anxious, or on edge: 0 = Not at all Not being able to stop or control worryin = Not at all Worrying too much about different things: 0 = Not at all Trouble relaxin = Not at all Being so restless that it is hard to sit still: 0 = Not at all Becoming easily annoyed or irritable: 0 = Not at all Feeling afraid as if something awful might happen: 0 = Not at all Total CASSIE-7 score (0-4 normal; 5-9 mild; 10-14 moderate; 15-21 severe): 0 Source: Developed by Drs. Jose Vee, Graciela Gracia, Aldo Silverman and colleagues, with an educational misha from [employer]. CASSIE-7 Assessment Billing CASSIE-7 Assessment Tool: CASSIE-7 Assessment 26724 Review of Systems Const Denies chills and Denies fever(s) Eyes Denies blurry vision ENT Denies vertigo, Denies dizziness and Denies sore throat Card Denies chest pain at rest, Denies chest pain with activity, Denies diaphoresis, Denies dyspnea and Denies dyspnea on exertion Resp Denies cough, Denies dyspnea, Denies dyspnea on exertion and Denies wheezing GI Denies abdominal pain, Denies melena, Denies hematochezia, Denies constipation, Denies diarrhea and Denies loose stools Denies hematuria Musc Denies numbness and Denies tingling Skin/Breast Denies lesions Neuro Denies vertigo, Denies dizziness, Denies numbness and Denies tingling Psych Denies anxiety, Denies depression, Denies homicidal ideation, Denies suicidal ideation and Denies other (substance abuse) Aller/Immun Denies wheezing Physical exam (Primary Care) Vital Signs: Last Vital Signs Pulse 66 08/06/24 07:43 BP 92/52 L 08/06/24 07:43 Pulse Ox 97 08/06/24 07:43 Oxygen Delivery Method Room Air 08/06/24 07:43 BMI result Body Mass Index 29.2 Tobacco/Smoking Status: Tobacco use Status Tobacco use date assessed 08/06/24 08/06/24 07:46 Patient Tobacco Use Status Former Tobacco user 08/06/24 07:46 Tobacco use type Cigarette 08/06/24 07:46 e-Cigarette/Vaping Use Never Used 08/06/24 07:46 Thrive Assessment: Date of Thrive Assessment Date Thrive assessed 08/06/24 08/06/24 07:49 Currently or been in a relationship where the following occur: I choose not to answer Const General: cooperative Nutritional Appearance: well nourished Orientation/consciousness: patient oriented x3 HENMT Head: Yes normal to inspection, Yes normocephalic and Yes atraumatic Ears: TM's normal bilaterally Eyes General: appearance normal, both eyes and all related structures Alignment and Position: alignment normal and position normal Neck Neck: Yes normal visual inspection, Yes no lymphadenopathy and Yes supple Resp Effort & Inspection: normal respiratory effort Auscultation: clear to auscultation bilaterally Cardio Rate: regular rate Rhythm: regular rhythm Heart sounds: S1 normal heart sound present, S2 normal heart sound present and no murmurs GI Other: LLQ with ? large lipoma ( that's where i inject myself ). Area is not tender with touch, no signs of a ABD hernia. Palpation (GI): Soft to palpation and nontender Auscultation: normal bowel sounds Male General Exam: Yes normal external exam Penis: normal penis Scrotum: scrotum normal, testes descended bilaterally and no inguinal hernias Testes: no testicular mass Skin Rashes: no rashes Neuro General: patient oriented x3, moves all extremities, no focal motor deficits and deep tendon reflexes 2+ bilaterally Romberg Test: Negative Extrem Other: bilat feet: no sensation with use of monofilament, onychomycosis noted Psych Appearance: grossly normal Mental Status: mental status grossly normal Speech and movement: Normal speech and movement present Affect: normal affect Attitude: cooperative Thought process: Normal thought process present Thought content: Normal thought content present Insight: Good insight present (Psych) Judgement: Good judgement present (Psych) Coding Level of Care Code Est Pt Prev Care 40-64y(91368) Diagnoses Encounter for routine adult physical exam with abnormal findings Z00. Additional Codes CASSIE-7 Assessment Billing - CASSIE-7 Assessment Tool: CASSIE-7 Assessment 85457 ([id number]) Assessment & Plan Assessment & Plan (1) Encounter for routine adult physical exam with abnormal findings: Code(s): Z00. - Encounter for general adult medical examination with abnormal findings Category: Medical Plan: Labs ordered Plan The patient agreed to the use of a medical safety director for this encounter. Scribed for PEDRO Diaz by Leora Adne medical safety director, on 08/06/2024 at 07:55 EST. Orders: Orders TSH reflex Free T4 Today Z00. - Encounter for general adult medical examination with abnormal findings UA CC w/rflx Micro + Cult Today Z00. - Encounter for general adult medical examination with abnormal findings Complete Blood Count Auto Diff Today Z00. - Encounter for general adult medical examination with abnormal findings Comprehensive [place]. Panel Fast Today Z00. - Encounter for general adult medical examination with abnormal findings Lipid Panel Today Z00. - Encounter for general adult medical examination with abnormal findings
== END 2024-08-06 08:18 | disposition home or self-care (01) ==
PROVIDERS: PCP Nurse Practitioner Family; Visit Provider Nurse Practitioner Family
DX: Z00.01 Encounter for general adult medical examination with abnormal findings (principal)

== ENCOUNTER → 2024-08-06 07:31 | Outpatient (BNVA) | payer OTHER, SELFPAY | PROVIDERS: PCP Nurse Practitioner Family; Visit Provider Nurse Practitioner Family ==

== ENCOUNTER 2024-08-06 08:09 | Outpatient (REF) | payer OTHER, SELFPAY ==
[2024-08-06 10:02] LABS: MANUAL DIFF FLAG NO
[2024-08-06 10:10] LABS: Basophils Absolute Auto 0.1 X10*3/uL (0.0-0.2); Basophils Percent Auto 1.9 % (0-2); Eosinophils Absolute Auto 0.1 X10*3/uL (0.0-0.4); Eosinophils Percent Auto 1.4 % (0-4); Hematocrit 38.2 % (42.0-52.0); Hemoglobin 12.4 g/dl (14.0-18.0); Imm Gran Abs Auto 0.01 X10*3/uL (0.00-0.03); Imm Gran Pct Auto 0.2 % (0.0-0.4); Lymphocytes Absolute Auto 1.5 X10*3/uL (1.2-4.9); Lymphocytes Percent Auto 35.7 % (20-40); Mean Corpuscular HGB Conc 32.5 g/dl (31.0-36.0); Mean Corpuscular Hemoglobin 28.6 pg (27.0-33.0); Monocytes Absolute Auto 0.4 X10*3/uL (0.1-1.2); Monocytes Percent Auto 9.6 % (2-11); Neutrophils Absolute Auto 2.1 x10*3/uL (2.0-8.3); Neutrophils Percent Auto 51.2 % (45-73); Platelet Count 251 X10*3/uL (160-400); Red Blood Count 4.34 X10*6/uL (4.60-5.80); Red Cell Distribution Width 13.7 % (11.0-16.0); White Blood Count 4.2 X10*3/uL (4.8-10.8)
[2024-08-06 10:29] LABS: Alanine Aminotransferase 12 U/L (0-40); Albumin Level 4.2 g/dL (3.5-5.0); Alkaline Phosphatase 50 U/L (39-117); Anion Gap 13 (12-20); Aspartate Amino Transferase 16 U/L (5-37); Bilirubin Total 0.4 mg/dL (0.0-1.0); Blood Urea Nitrogen 16 mg/dL (9-16); Calcium 9.2 mg/dL (8.4-10.2); Carbon Dioxide 28 mmol/L (22-29); Chloride 104 mmol/L (96-108); Cholesterol 130 mg/dL (<200); Estimated Glomerular Filt Rate > 60; Glucose Fasting 96 mg/dL (60-99); HDL Cholesterol 53 mg/dL (>40); LDL Cholesterol Calculated 66 mg/dL (<100); Potassium 3.9 mmol/L (3.3-5.1); Sodium 141 mmol/L (135-145); Total Protein 6.7 g/dL (6.5-8.0); Triglycerides 59 mg/dL (<150)
[2024-08-06 10:39] LABS: Appearance Urine Clear; Color Urine Yellow; Glucose Urine UA >=1000 mg/dL (Negative); Leukocyte Esterase Urine Negative (Negative); Nitrite Urine Negative (Negative); Specific Gravity - Urine >= 1.030 (1.005-1.025); UMIC TRIGGER UACC YES; Urine Blood Negative (Negative); Urine Ketones Negative (Negative); Urine Protein Negative (Neg-Trace)
[2024-08-06 10:49] LABS: TSH reflex Free T4 1.86 uIU/mL (0.32-4.0)
[2024-08-06 11:38] LABS: Bacteria Urine None Seen (None Seen); Hyaline Casts Urine 0-2 /LPF (0-2); RBC Urine 0-2 /HPF (0-2); Squamous Epithelial Cell Urine 0-2 /HPF (0-2); WBC Urine 0-5 /HPF (0-5)
[2024-08-06 14:07] LABS: Iron 90 mcg/dL (45-160); Lactate Dehydrogenase 185 U/L (118-273); Percent Iron Saturation 24 % (15-50); Total Iron Binding Capacity 379 mcg/dL (228-428); Unsaturated Iron Binding 289 ug/dL
[2024-08-06 14:20] LABS: Ferritin 40 ng/mL (20-250)
== END 2024-08-06 08:10 | disposition home or self-care (01) ==
LOC: HO.HMGCLDS 08:09
PROVIDERS: PCP Nurse Practitioner Family; Referring Provider Urology; Visit Provider Nurse Practitioner Family
DX: Z00.01 Encounter for general adult medical examination with abnormal findings (principal); E11.42 Type 2 diabetes mellitus with diabetic polyneuropathy; D64.9 Anemia, unspecified; E55.9 Vitamin D deficiency, unspecified; R97.20 Elevated prostate specific antigen [PSA]; Z87.891 Personal history of nicotine dependence
CPT/HCPCS: 36415; 80053; 80061; 81001; 81003; 82306; 82728; 83540; 83615; 84443; 85025; 96127

== ENCOUNTER 2024-10-08 07:49 | Outpatient (AMB) | payer OTHER, SELFPAY ==
--- NOTE | 2024-10-08 07:56 | MHC.PC.OV ---
Vital Signs 10/08/24 07:58 Height 6 ft 5 in Weight 252 lb 10.396 oz BMI 30.0 BP 94/62 Blood Pressure Location Lt brachial Position Sitting Pulse 73 Pulse Source Pulse Oximeter Intake Visit Reasons: T2DM/Confirmed Intake Note: Patient present today for Type 2 Diabetes Mellitus. Last Diabetic eye exam: 08/2023 Last Podiatry Visit: Doesn't have one Random Glucose: 106 mg/dl HgA1C: 7.0% Electrophonic Engineer Required: No Accompanied by: Self / Same As Patient Allergies lisinopril Adverse Reaction (Mild, Verified 10/08/24 08:08) Cough Medication List - Last Reconciled 10/08/24 by Lizbeth Oneill PA-C albuterol sulfate 90 mcg/actuation 2 puffs inhalation Q6H PRN aspirin (Adult Aspirin Regimen) 81 mg PO DAILY atorvastatin 80 mg PO DAILY blood-glucose meter ([employer] Verio Flex Meter) As directed blood-glucose sensor (Dexcom G7 Sensor device) As directed change every 10 days cetirizine (Zyrtec) 10 mg PO DAILY PRN [diabetic shoes extra depth orthopedic shoes ( 1 pair ) with customize heat molded multi density inner soles ( 3 pair) Dispense 1 Sig: As directed DX: And IDDM /polyneuropathy ( E11 0.42 ); hammertoe foot deformity ( M 20.41, and 20.42 ) pre ulcerative skin lesion ( L 85.1 ) Diagnosis ( E11 0.42 ) type 2 diabetes with polyneuropathy] doxazosin 4 mg PO BEDTIME 90 days empagliflozin (Jardiance) 25 mg PO DAILY fenofibrate 160 mg PO DAILY finasteride 5 mg PO .QOD 90 days insulin degludec (Tresiba FlexTouch U-200 insulin) 25 units (0.125 mL) subcut BEDTIME losartan 12.5 mg (1/2 x 25 mg) PO DAILY 90 days metformin 1,000 mg PO BID 90 days omega-3 acid ethyl esters 2 caps PO BID pen needle, diabetic (BD Clarissa 2nd Gen Pen Needle) As directed twice a day semaglutide (Ozempic) 2 mg (0.75 mL) subcut QWEEK tadalafil 10 mg PO DAILY 90 days tadalafil 20 mg PO ONCE PRN 30 days trazodone 150 mg PO BEDTIME PRN 90 days Tobacco use date assessed: 08/06/24 Dental Screening Dental Screen Date: 08/06/24 HPI T2DM/Confirmed HPI Details Patient is a 58-year-old male with a significant past medical history hyperlipidemia,, obstructive sleep apnea, and uncontrolled type 2 diabetes presenting today for a follow up regarding diabetes.. Endo: Dm-A1c is 7.0. He is currently on Ozempic 1 mg weekly, Actos 30 mg daily, Jardiance 25 mg daily, metformin 1000 mg twice a day and Tresiba 25 units at bedtime. -he does want to consider reducing/adjusting some his medications. CGM-Dexcom download shows 86% usage, average glucose 145, G mi 6.8. Very hyperglycemic 3%, hyperglycemic 23%, in range 73%, hypoglycemic 1%, very hypoglycemic 1% -he states that the hypoglycemia is very rare and it happened while he was sick and he did not eat much. He did not have any symptoms of the hypoglycemia that occurred overnight. He states that he woke up and ate something to correct it. He did not check it with his glucometer. States that he felt asymptomatic with it. -his hypoglycemia tends to occur around 21:00. He states that is when he snacks on foods he shouldn't. he has been tested 2 x to confirm t2dm, mother type 2 dm -he is on an Arb and statin. -utd eye and Podiatry. He does peripheral neuropathy and checks his feet every day. CV: Blood pressure today in the office is 94/62. He is on losartan 12.5 mg daily. His cholesterol is controlled with atorvastatin 80 mg. No chest pain or shortness on breath. He states that he is asymptomatic with the low blood pressure. [facility] Medical History Tubular adenoma Back pain with history of spinal surgery Neuropathy RLS (restless legs syndrome) Tendonitis Hyperparathyroidism Bronchitis LJ (obstructive sleep apnea) Type 2 diabetes mellitus with polyneuropathy Hyperlipidemia LDL goal <100 Hypertriglyceridemia Surgical History Hx of excision of mass History of esophagogastroduodenoscopy (EGD) H/O colonoscopy Hx of removal of cyst (08/17/22) History of anterior cruciate ligament surgery History of rotator cuff surgery Family History Father Colon cancer Mother Breast cancer Diabetes mellitus Sister Brain cancer Sister No problems noted. Sister No problems noted. Sister No problems noted. Brother Substance use disorder Brother No problems noted. Brother No problems noted. Son No problems noted. Social History Housing: House Patient Tobacco Use Status: Former Tobacco user Tobacco use type: Cigarette Cigarettes Per Day: 10 Years Smoked: 15 e-Cigarette/Vaping Use: Never Used Second Hand Smoke Exposure: No service: No Current occupational status: employed Current occupation: [employer] Current occupational exposures/hazards: No Cognitive needs: No Hearing needs: No Vision needs: No Questionnaire Thrive Questionnaire Date Thrive assessed: 08/06/24 I am a: Patient What is your living situation today?: I have a steady place to live Within the past 12 months, did the food you bought not last and you didn't have the money to get more?: I choose not to answer this question Within the past 12 months, did you worry whether your food would run out before you got money to buy more?: I choose not to answer this question Do you have trouble paying for medicines?: I choose not to answer this question Do you have trouble getting transportation to medical appointments?: I choose not to answer this question Do you have trouble paying your heating and electricity bill?: I choose not to answer this question Do you have trouble taking care of your child, family member or friend?: I choose not to answer this question Do you have trouble with day-to-day activities such as bathing, preparing meals, shopping, managing finances, etc.?: I choose not to answer this question Are you interested in more education?: I choose not to answer this question Please select the resources that you would like help with: None Currently or been in a relationship where the following occur: I choose not to answer THRIVE Score: 0 CASSIE-7 AMB Questionnaire CASSIE-7 Date CASSIE - 7 assessed: 08/06/24 Source: Developed by Drs. Jose Vee, Graciela Gracia, Aldo Silverman and colleagues, with an educational misha from [employer]. Physical exam (Primary Care) Vital Signs: Last Vital Signs Pulse 73 10/08/24 07:58 BP 94/62 10/08/24 07:58 BMI result Body Mass Index 30.0 Tobacco/Smoking Status: Tobacco use Status Tobacco use date assessed 08/06/24 10/08/24 07:57 Patient Tobacco Use Status Former Tobacco user 10/08/24 07:57 Tobacco use type Cigarette 10/08/24 07:57 e-Cigarette/Vaping Use Never Used 10/08/24 07:57 Thrive Assessment: Date of Thrive Assessment Date Thrive assessed 08/06/24 10/08/24 07:57 Currently or been in a relationship where the following occur: I choose not to answer Const Orientation/consciousness: patient oriented x3 HENMT Ears: hearing grossly normal bilaterally Neck Thyroid: Thyroid normal Lymphatic: no lymphadenopathy noted Resp Auscultation: clear to auscultation bilaterally Cardio Rate: regular rate Rhythm: regular rhythm Heart sounds: S1 normal heart sound present and S2 normal heart sound present Skin General skin exam: no rashes or lesions noted Neuro General: patient oriented x3, gait normal and no focal motor deficits Office Procedures Glucose Monitoring Details Details: see [facility] [id number] - Glucose monitoring, continuous-physician I&R Procedure code (CPT) selection complete Results AMB Hemoglobin A1c AMB Hemoglobin A1c 7.0 % Last Edit by TIMBO Heard on 10/08/24 08:21 Results Reviewed Results Reviewed: Laboratory Last Values Glucose (Clinic) 106 mg/dL (60-115) 10/08/24 08:11 Hgb A1c (Clinic) 7.0 % (4.0-6.0) H 10/08/24 08:14 Laboratory Tests 02/09/24 07/16/24 08/06/24 08:04 09:19 08:15 Creatinine 0.99 Estimated GFR > 60 Hgb A1c (Clinic) 7.3 H AST 16 ALT 12 Triglycerides 59 Cholesterol 130 LDL Cholesterol, Calc 66 HDL Cholesterol 53 Urine Creatinine 127.50 Urine Microalbumin 7.0 Microalb/Creat Ratio 5.4 10/08/24 08:14 Creatinine Estimated GFR Hgb A1c (Clinic) 7.0 H AST ALT Triglycerides Cholesterol LDL Cholesterol, Calc HDL Cholesterol Urine Creatinine Urine Microalbumin Microalb/Creat Ratio Coding Level of Care Code Est Pt Level 4 (72313) Diagnoses Type 2 diabetes mellitus with polyneuropathy E11.42 Hyperlipidemia LDL goal <100 E78.5 CPT Codes Details - CPT: 56122 - Glucose monitoring, continuous-physician I&R ([id number]) Assessment & Plan Assessment & Plan (1) Type 2 diabetes mellitus with polyneuropathy: Code(s): E11.42 - Type 2 diabetes mellitus with diabetic polyneuropathy Category: Medical Plan: I will increase Ozempic. We did discuss diet and lifestyle modifications including increased protein intake, decreasing carbohydrate intake and increase exercise. He is motivated to make some dietary changes. We will trial off of Actos. He will contact me if his blood sugars go up. Patient is a little hypotensive today. States that he sometimes gets dizzy with getting up quickly. The last couple times he has been seen his blood pressures have been on the lower side. We will discontinue the losartan today. I will have him recheck his labs in 3 months prior to appointment. will check urine as well. (2) Hyperlipidemia LDL goal <100: Code(s): E78.5 - Hyperlipidemia, unspecified Category: Medical Plan: Continue current regimen Orders: Orders AMB Hemoglobin A1c Today E11.42 - Type 2 diabetes mellitus with diabetic polyneuropathy, Z13.9 - Encounter for screening, unspecified Microalbumin, Random (w Creat) Today E11.42 - Type 2 diabetes mellitus with diabetic polyneuropathy, E78.5 - Hyperlipidemia, unspecified Medications: New semaglutide (Ozempic) 2 mg (0.75 mL) subcut QWEEK 3 mL 5RF Refilled pen needle, diabetic (BD Clarissa 2nd Gen Pen Needle) As directed twice a day 200 ea 3RF blood-glucose sensor (Dexcom G7 Sensor device) As directed change every 10 days 9 ea 4RF Discontinued pioglitazone Discontinued Reason: Doctor's Order 30 mg PO DAILY 90 tabs 1RF E11.42 - Type 2 diabetes mellitus with diabetic polyneuropathy semaglutide (Ozempic) Discontinued Reason: Doctor's Order 1 mg (0.75 mL) subcut QWEEK 3 mL 4RF losartan Discontinued Reason: Doctor's Order 12.5 mg (1/2 x 25 mg) PO DAILY 90 days 45 tabs 0RF
[2024-10-08 07:58] VITALS: BP 94/62; PULSE 73
[2024-10-08 08:15] LABS: Glucose, Whole Blood 106 mg/dL (60-115)
== END 2024-10-08 08:45 | disposition home or self-care (01) ==
PROVIDERS: PCP Nurse Practitioner Family; Visit Provider Physician Assistant
DX: Z13.9 Encounter for screening, unspecified (principal); E11.42 Type 2 diabetes mellitus with diabetic polyneuropathy; E78.5 Hyperlipidemia, unspecified

== ENCOUNTER → 2024-10-08 07:49 | Outpatient (BNVA) | payer OTHER, SELFPAY | PROVIDERS: PCP Nurse Practitioner Family; Visit Provider Physician Assistant | DX: E11.42 Type 2 diabetes mellitus with diabetic polyneuropathy (principal); E78.5 Hyperlipidemia, unspecified | CPT/HCPCS: 82947; 83036 ==

== ENCOUNTER 2024-11-08 08:20 | Outpatient (AMB) | payer OTHER, SELFPAY ==
--- NOTE | 2024-11-08 08:29 | MHC.OFFVIS ---
Intake Visit Reasons: 6M PSA/PVR(set) Intake Note: Patient is present for 6m PVR/PSA Urology Medication:FINASTERIDE,TADALAFIL Antibiotic Allergy:NONE Blood Thinner:ASPIRIN Todays PVR:16ML'S Medical Staff Coordinator Required: No Allergies lisinopril Adverse Reaction (Mild, Verified 11/08/24 08:32) Cough HPI Comments Details: Damien is a pleasant male. He is a patient Dr. Kong. He seen for the following urologic conditions - elevated PSA - erectile dysfunction with diabetes - lower urinary tract symptoms Six-month follow-up Follow-up response to daily tadalafil 10 mg Continuing to be effective - on high dose oral therapy PSA 4.0 Free 10% - this occurred cutting back to 1/2 tab 3 times per week - still some libido suppression Discussed other options including vacuum pump, injectable therapy, penile prosthetic 6 month follow-up office PSA Elevated PSA Labs - 06/14 4.6, 09/14 4.9 16% Discussed risk factors no family history Prostate biopsy - 10/14 3 cores small acinar proliferation Current therapy finasteride - Tuesday, Tuesday, Tuesday - 05/15 2.7. 11/16 2.9, 02/14 4.0, 11/17 2.7 Lower urinary tract symptoms Urinary urgency and frequency, nocturia x3, weakness of stream, hesitancy No prior therapy Given combination with erectile dysfunction initiation daily tadalafil Erectile dysfunction setting of diabetes Diabetic diagnosis 2014 On combination therapy - 5mg daily tadalaifil with 20mg on demand Recent HbA1c 9.9 with elevated cholesterol Background of sleep apnea under adjustment Labs 09/14 T565 [facility] Medical History Tubular adenoma Back pain with history of spinal surgery Neuropathy RLS (restless legs syndrome) Tendonitis Hyperparathyroidism Bronchitis LJ (obstructive sleep apnea) Type 2 diabetes mellitus with polyneuropathy Hyperlipidemia LDL goal <100 Hypertriglyceridemia Surgical History Hx of excision of mass History of esophagogastroduodenoscopy (EGD) H/O colonoscopy Hx of removal of cyst (08/17/22) History of anterior cruciate ligament surgery History of rotator cuff surgery Family History Father Colon cancer Mother Breast cancer Diabetes mellitus Sister Brain cancer Sister No problems noted. Sister No problems noted. Sister No problems noted. Brother Substance use disorder Brother No problems noted. Brother No problems noted. Son No problems noted. Social History Housing: House Patient Tobacco Use Status: Former Tobacco user Tobacco use type: Cigarette Cigarettes Per Day: 10 Years Smoked: 15 e-Cigarette/Vaping Use: Never Used Second Hand Smoke Exposure: No service: No Current occupational status: employed Current occupation: [employer] Current occupational exposures/hazards: No Cognitive needs: No Hearing needs: No Vision needs: No Review of Systems Const Denies chills and Denies fever(s) Card Reports no additional complaints and Denies syncope Resp Denies cough GI Denies abdominal pain and Denies heartburn Reports as per HPI and Denies change in libido Neuro Denies syncope Psych Denies change in libido Endo Denies change in libido Physical Exam Const General: cooperative, healthy appearing, comfortable and no acute distress Orientation/consciousness: patient oriented x3 HEENT Face and sinus: Yes normal facial exam Mouth: moist mucous membranes Neck Neck: Yes normal visual inspection, Yes full ROM and Yes trachea midline Chest Chest palpation & inspection: normal inspection of the chest Resp Effort & Inspection: normal respiratory effort, able to speak in complete sentences and no respiratory distress GI Inspection: Yes normal to inspection Back/Spine/Pelvis Cervical Spine: normal cervical lordosis Thoracic/Lumbar Spine: thoracic and lumbar spine normal to inspection Skin General skin exam: no rashes or lesions noted Neuro General: patient oriented x3, gait normal, tone normal and moves all extremities Extrem General: Yes normal to inspection and Yes capillary refill normal Office Procedures Post Void Residual Post Residual Void Post Void Residual (PVR): 16 20876-Pefv Void Residual by ultrasound Results AMB Urinalysis, Automated UA Leukoctes 0 Zuri/uL Last Edit by YAIMA Troy on 11/08/24 08:43 UA Nitrite Negative Last Edit by YAIMA Troy on 11/08/24 08:43 UA Urobilinogen 0.2 mg/dL Last Edit by YAIMA rToy on 11/08/24 08:43 UA Protein 15 mg/dL Last Edit by YAIMA Troy on 11/08/24 08:43 UA pH 6.5 Last Edit by YAIMA Troy on 11/08/24 08:43 UA Blood 0 Immanuel/uL Last Edit by YAIMA Troy on 11/08/24 08:43 UA Specific Marine 1.015 Last Edit by YAIMA Troy on 11/08/24 08:43 UA Ketone Negative Last Edit by YAIMA Troy on 11/08/24 08:43 UA Bilirubin 0 mg/dL Last Edit by YAIMA Troy on 11/08/24 08:43 UA Glucose 1000 mg/dL Last Edit by YAIMA Troy on 11/08/24 08:43 Assessment & Plan Assessment & Plan (1) Elevated PSA: Comment: 10/14 Prostate Biopsy 3 core MIKIE Code(s): R97.20 - Elevated prostate specific antigen [PSA] Category: Medical (2) BPH loc w urin obs/LUTS: Code(s): N40.1 - Benign prostatic hyperplasia with lower urinary tract symptoms Category: Medical Plan Six-month follow-up PSA tele Orders: Orders Prostate Specific Antigen 11/02/24 R97.20 - Elevated prostate specific antigen [PSA] AMB Urinalysis Automated Today Z13.9 - Encounter for screening, unspecified Prostate Specific Antigen 6 Months R97.20 - Elevated prostate specific antigen [PSA] Patient Instructions: Imaging studies, laboratory and physical exam results were discussed and reviewed in detail. No major barriers to patient understanding were identified. An opportunity to ask questions regarding the treatment plan was provided. All questions were answered. The patient expressed understanding and agreement with the above treatment plan. The patient is aware they should contact our office by phone for worsening of their current condition or the appearance of new urologic symptoms. Compliance is encouraged with any medications and followup testing that is ordered. It is a privilege to participate in the urologic care of your patient. If you have any questions or concerns regarding treatment for the above conditions, or other urologic issues, please do not hesitate to contact me. The office telephone contact is [phone]. This note is constructed using voice recognition software. While every effort has been made to ensure accuracy biomedical photographer errors may have been included. Yours sincerely, Dr Grant Fitch MD, [facility] - Urology Providers of Expert, Compassionate Care for the Genitourinary System Coding Level of Care Code Est Pt Level 3 (96328) Diagnoses Elevated PSA R97.20 BPH loc w urin obs/LUTS N40.1 CPT Codes Post Residual Void - PVR CPT Code: 20783-Pvme Void Residual by ultrasound ([id number])
== END 2024-11-08 08:48 | disposition home or self-care (01) ==
PROVIDERS: PCP Nurse Practitioner Family; Visit Provider Urology
DX: R97.20 Elevated prostate specific antigen [PSA] (principal); N40.1 Benign prostatic hyperplasia with lower urinary tract symptoms; Z13.9 Encounter for screening, unspecified
CPT/HCPCS: 99213

== ENCOUNTER → 2024-11-08 08:20 | Outpatient (BNVA) | payer OTHER, SELFPAY | PROVIDERS: PCP Nurse Practitioner Family; Visit Provider Urology | DX: R97.20 Elevated prostate specific antigen [PSA] (principal); N40.1 Benign prostatic hyperplasia with lower urinary tract symptoms; N13.8 Other obstructive and reflux uropathy | CPT/HCPCS: 51798; 81003 ==

== ENCOUNTER 2024-12-31 07:48 | Outpatient (AMB) | payer OTHER, SELFPAY ==
[2024-12-31 07:55] VITALS: BP 120/80; PULSE 75; O2SAT 96
--- NOTE | 2024-12-31 07:55 | A.OFFVIS_ITS ---
Vital Signs 12/31/24 07:55 Weight 244 lb 11.41 oz BP 120/80 Blood Pressure Location Rt brachial Position Sitting Pulse 75 Pulse Source Pulse Oximeter Pulse Oximetry (%) 96 Oxygen Delivery Method Room Air Intake Visit Reasons: T2DM Intake Note: Patient presents today for a follow-up on Type 2 Diabetes Mellitus: Last Diabetic eye exam was on: DUE Last Podiatry exam was on: Patient does not see a Cager Operator Most recent HbA1c: 6.5%, 12/31/2024 Random Glucose- 104 mg/dL, Today Accompanied by: Self / Same As Patient Allergies lisinopril Adverse Reaction (Mild, Verified 11/08/24 08:32) Cough Medication List - Last Reconciled 12/31/24 by Lizbeth Oneill PA-C albuterol sulfate 90 mcg/actuation 2 puffs inhalation Q6H PRN aspirin (Adult Aspirin Regimen) 81 mg PO DAILY atorvastatin 80 mg PO DAILY blood-glucose meter ([employer] Verio Flex Meter) As directed blood-glucose sensor (Dexcom G7 Sensor device) As directed change every 10 days cetirizine (Zyrtec) 10 mg PO DAILY PRN [diabetic shoes extra depth orthopedic shoes ( 1 pair ) with customize heat molded multi density inner soles ( 3 pair) Dispense 1 Sig: As directed DX: And IDDM /polyneuropathy ( E11 0.42 ); hammertoe foot deformity ( M 20.41, and 20.42 ) pre ulcerative skin lesion ( L 85.1 ) Diagnosis ( E11 0.42 ) type 2 diabetes with polyneuropathy] doxazosin 4 mg PO BEDTIME 90 days empagliflozin (Jardiance) 25 mg PO DAILY fenofibrate 160 mg PO DAILY finasteride 5 mg PO .QOD 90 days insulin degludec (Tresiba FlexTouch U-200 insulin) 25 units (0.125 mL) subcut BEDTIME metformin 1,000 mg PO BID 90 days omega-3 acid ethyl esters 2 caps PO BID pen needle, diabetic (BD Clarissa 2nd Gen Pen Needle) As directed twice a day semaglutide (Ozempic) 2 mg (0.75 mL) subcut QWEEK tadalafil 10 mg PO DAILY 90 days tadalafil 20 mg PO ONCE PRN 30 days trazodone 150 mg PO BEDTIME PRN 90 days HPI HPI T2DM: Details: Patient is a 58-year-old male with a significant past medical history hyperlipidemia,, obstructive sleep apnea, and uncontrolled type 2 diabetes presenting today for a follow up regarding diabetes.. Endo: Dm-A1c is 6.5 He is currently on Ozempic 2 mg weekly, Jardiance 25 mg daily, metformin 1000 mg twice a day and Tresiba 25 units at bedtime. CGM-Dexcom download shows 86% usage, average glucose 148, G mi 6.9. Very hyperglycemic 6%, hyperglycemic 18%, in range 75%, hypoglycemic 1%, very hypoglycemic 1% he has been tested 2 x to confirm t2dm, mother type 2 dm -he is on an Arb and statin. -utd eye and Podiatry. He does peripheral neuropathy and checks his feet every day. CV: Blood pressure today in the office is 120/80. He was discontinued on losartan 12.5 mg at our last visit and blood pressures have been better. His cholesterol is controlled with atorvastatin 80 mg and fenofibrate. No chest pain or shortness on breath. He states that he is asymptomatic with the low blood pressure. [facility] Medical History Tubular adenoma Back pain with history of spinal surgery Neuropathy RLS (restless legs syndrome) Tendonitis Hyperparathyroidism Bronchitis LJ (obstructive sleep apnea) Type 2 diabetes mellitus with polyneuropathy Hyperlipidemia LDL goal <100 Hypertriglyceridemia Surgical History Hx of excision of mass History of esophagogastroduodenoscopy (EGD) H/O colonoscopy Hx of removal of cyst (08/17/22) History of anterior cruciate ligament surgery History of rotator cuff surgery Family History Father Colon cancer Mother Breast cancer Diabetes mellitus Sister Brain cancer Sister No problems noted. Sister No problems noted. Sister No problems noted. Brother Substance use disorder Brother No problems noted. Brother No problems noted. Son No problems noted. Social History Housing: House Patient Tobacco Use Status: Former Tobacco user Tobacco use type: Cigarette Cigarettes Per Day: 10 Years Smoked: 15 e-Cigarette/Vaping Use: Never Used Second Hand Smoke Exposure: No service: No Current occupational status: employed Current occupation: [employer] Current occupational exposures/hazards: No Cognitive needs: No Hearing needs: No Vision needs: No Physical Exam Vital Signs: Last Vital Signs Pulse 75 12/31/24 07:55 BP 120/80 12/31/24 07:55 Oxygen Delivery Method Room Air 12/31/24 07:55 Const Orientation/consciousness: patient oriented x3 Neck Neck: Yes no lymphadenopathy Thyroid: Thyroid normal Carotids: no bruits Resp Auscultation: clear to auscultation bilaterally Cardio Rate: regular rate Rhythm: regular rhythm Heart sounds: S1 normal heart sound present and S2 normal heart sound present Peripheral pulses: dorsalis pedis present Neuro General: patient oriented x3, gait normal and no focal motor deficits Extrem Other: Monofilament sensation diminished bilaterally. Vibratory sensation diminished bilaterally. Skin intact. General: Yes normal to inspection Results AMB Hemoglobin A1c AMB Hemoglobin A1c 6.5 % Last Edit by TIMBO Anthony on 12/31/24 08:10 Results Reviewed Results Reviewed: Laboratory Last Values Glucose (Clinic) 104 mg/dL (60-115) 12/31/24 07:59 Laboratory Tests 08/06/24 10/08/24 12/31/24 08:15 08:14 07:59 Glucose (Clinic) 104 Hgb A1c (Clinic) 7.0 H Triglycerides 59 Cholesterol 130 LDL Cholesterol, Calc 66 HDL Cholesterol 53 Assessment & Plan Assessment & Plan (1) Uncontrolled diabetes mellitus with hyperglycemia: Code(s): E11.65 - Type 2 diabetes mellitus with hyperglycemia Category: Medical Qualifiers: Diabetes mellitus type: type 2 Qualified Code(s): E11.65 - Type 2 diabetes mellitus with hyperglycemia Plan: continue current plan (2) Type 2 diabetes mellitus with polyneuropathy: Code(s): E11.42 - Type 2 diabetes mellitus with diabetic polyneuropathy Category: Medical Plan: follows with podiatry and checks feet daily (3) Hyperlipidemia LDL goal <100: Code(s): E78.5 - Hyperlipidemia, unspecified Category: Medical Plan: at goal Orders: Orders AMB Hemoglobin A1c Today E11.65 - Type 2 diabetes mellitus with hyperglycemia Medications: Refilled atorvastatin 80 mg PO DAILY 90 tabs 3RF empagliflozin (Jardiance) 25 mg PO DAILY 90 tabs 3RF E11.42 - Type 2 diabetes mellitus with diabetic polyneuropathy semaglutide (Ozempic) 2 mg (0.75 mL) subcut QWEEK 3 mL 11RF metformin 1,000 mg PO BID 90 days 180 tabs 3RF E11.42 - Type 2 diabetes mellitus with diabetic polyneuropathy Coding Level of Care Code Est Pt Level 4 (83925) Complex EM visit Add On G2211 Diagnoses Uncontrolled type 2 diabetes mellitus with hyperglycemia E11.65 Diabetes mellitus type: type 2 Type 2 diabetes mellitus with polyneuropathy E11.42 Hyperlipidemia LDL goal <100 E78.5
[2024-12-31 08:04] LABS: Glucose, Whole Blood 104 mg/dL (60-115)
== END 2024-12-31 08:29 | disposition home or self-care (01) ==
PROVIDERS: PCP Nurse Practitioner Family; Visit Provider Physician Assistant
DX: E11.65 Type 2 diabetes mellitus with hyperglycemia (principal); E11.42 Type 2 diabetes mellitus with diabetic polyneuropathy; E78.5 Hyperlipidemia, unspecified

== ENCOUNTER → 2024-12-31 07:48 | Outpatient (BNVA) | payer OTHER, SELFPAY | PROVIDERS: PCP Nurse Practitioner Family; Visit Provider Physician Assistant | DX: E11.65 Type 2 diabetes mellitus with hyperglycemia (principal); E11.42 Type 2 diabetes mellitus with diabetic polyneuropathy; E78.5 Hyperlipidemia, unspecified; G47.33 Obstructive sleep apnea (adult) (pediatric) | CPT/HCPCS: 82947; 83036 ==

== ENCOUNTER 2025-02-04 08:19 | Outpatient (AMB) | payer OTHER, SELFPAY ==
[2025-02-04 08:28] VITALS: BP 110/66; PULSE 81; O2SAT 97; BMI 28.2
--- NOTE | 2025-02-04 08:28 | A.OFFPC_ITS ---
Vital Signs 02/04/25 08:28 Height 6 ft 5 in Weight 238 lb BMI 28.2 BP 110/66 Blood Pressure Location Rt brachial Position Sitting Pulse 81 Pulse Source Pulse Oximeter Pulse Oximetry (%) 97 Intake Visit Reasons: 6 month follow up Inventory Accountant Required: No Accompanied by: Self / Same As Patient Allergies lisinopril Adverse Reaction (Mild, Verified 02/04/25 09:06) Cough Medication List - Last Reconciled 02/04/25 by Trey Gregg CLAIMS ADJUSTER CROP- albuterol sulfate 90 mcg/actuation 2 puffs inhalation Q6H PRN aspirin (Adult Aspirin Regimen) 81 mg PO DAILY atorvastatin 80 mg PO DAILY blood-glucose meter ([employer] Verio Flex Meter) As directed blood-glucose sensor (iPosition G7 Sensor device) As directed change every 10 days cetirizine (Zyrtec) 10 mg PO DAILY PRN [diabetic shoes extra depth orthopedic shoes ( 1 pair ) with customize heat molded multi density inner soles ( 3 pair) Dispense 1 Sig: As directed DX: And IDDM /polyneuropathy ( E11 0.42 ); hammertoe foot deformity ( M 20.41, and 20.42 ) pre ulcerative skin lesion ( L 85.1 ) Diagnosis ( E11 0.42 ) type 2 diabetes with polyneuropathy] doxazosin 4 mg PO BEDTIME 90 days empagliflozin (Jardiance) 25 mg PO DAILY fenofibrate 160 mg PO DAILY finasteride 5 mg PO .QOD 90 days insulin degludec (Tresiba FlexTouch U-200 insulin) 25 units (0.125 mL) subcut BEDTIME metformin 1,000 mg PO BID 90 days omega-3 acid ethyl esters 2 caps PO BID pen needle, diabetic (BD Clarissa 2nd Gen Pen Needle) As directed twice a day semaglutide (Ozempic) 2 mg (0.75 mL) subcut QWEEK tadalafil 20 mg PO ONCE PRN 30 days tadalafil 10 mg PO DAILY 90 days trazodone 150 mg PO BEDTIME PRN 90 days Tobacco use date assessed: 02/04/25 Dental Screening Dental Screen Date: 02/04/25 Did you have a dental visit in the last 12 months?: Yes Did you have a dental problem in the last 6 months where you did not have access to dental care?: No Was dental information given to patient?: Patient has dentist HPI 6 month follow up HPI Details Chief Complaint Pain and tenderness in the left tricep region. History of Present Illness The patient is a 59-year-old male presenting with upper extremity pain. He reports a burning sensation in the left tricep area that has persisted for several weeks. The pain is exacerbated by palpation and sleeping on the affected side, yet he maintains full movement in the left upper extremity. Additionally, the patient has been using a diabetes sensor in the region of the complaint, although no secondary infection is observed. He denies any chest pain or discomfort in the cervical neck or shoulder, and there are no issues with shortness of breath. His diabetes is being managed by an radio engineering teacher. Social History - Exercise habits or activities were not discussed. - Details about diet or nutrition habits were not discussed. - Employment status was not discussed. - Housing details were not discussed. - Details regarding substance use were n ot discussed. Health Maintenance Review of Systems - Musculoskeletal: Reports tenderness an d burning sensation in the left tricep region; denies pain in the shoulder or cervical neck. - Cardiovascular: Denies chest pain. - Respiratory: Denies shortness of breat h. Physical Exam General: Cooperative, healthy appearing, comfortable, no acute distress and well developed Orientation: Patient oriented x3 Limitations: No limitations Head: Normal to inspection Ears: Hearing grossly normal bilaterally Nose: Normal external nose present Face and sinus: Normal facial exam Eyes: Appearance normal, both eyes and all related structures Neck: Normal visual inspection and Yes full ROM Respiratory: Normal respiratory effort and able to speak in complete sentences. Clear to auscultation bilaterally Cardiovascular: Regular rate and rhythm. Normal S1 and S2 GI: Normal to inspection. Soft to palpation and nontender Skin: No rashes or lesions noted Neuro: Patient oriented x3 Extremities: Tenderness with touch to the left tricep region. Full moving ability to the left upper extremity without difficulty or increase in pain. Normal to inspection otherwise. + radial pulse Results Plan I will recommend that the patient cease using the diabetes sensor on the left upper extremity and instead use it on the right or elsewhere to provide rest to the affected site. An ultrasound of the left tricep will be obtained to rule out any lesions or masses, although the symptoms suggest nerve irritation likely from the sensor. The patient's diabetes management will continue under the care of the radio engineering teacher, with attention to avoiding complications related to sensor use. Discussion Notes I discussed with the patient the likelihood of the pain being nerve-related due to the diabetes sensor's placement. We have agreed on ceasing the use of the sensor on the left arm and instead using it elsewhere as a primary means of rest and alleviating symptoms. The necessity of an ultrasound to rule out structural anomalies was also explained. Despite the lack of chest pain or respiratory concerns, I emphasized the importance of monitoring any potential symptom changes and follow-up if symptoms persist or worsen. Patient Instructions - Stop using the diabetes sensor on the left upper extremity. - Use the sensor on the right arm or alt ernative locations. - Monitor for changes in pain or new sym ptoms. - Undergo an ultrasound of the left tric ep as planned. [facility] Medical History Tubular adenoma Back pain with history of spinal surgery Neuropathy RLS (restless legs syndrome) Tendonitis Hyperparathyroidism Bronchitis LJ (obstructive sleep apnea) Type 2 diabetes mellitus with polyneuropathy Hyperlipidemia LDL goal <100 Hypertriglyceridemia Surgical History Hx of excision of mass History of esophagogastroduodenoscopy (EGD) H/O colonoscopy Hx of removal of cyst (08/17/22) History of anterior cruciate ligament surgery History of rotator cuff surgery Family History Father Colon cancer Mother Breast cancer Diabetes mellitus Sister Brain cancer Sister No problems noted. Sister No problems noted. Sister No problems noted. Brother Substance use disorder Brother No problems noted. Brother No problems noted. Son No problems noted. Social History Housing: House Patient Tobacco Use Status: Former Tobacco user Tobacco use type: Cigarette Cigarettes Per Day: 10 Years Smoked: 15 Packs per year/per ci.50 e-Cigarette/Vaping Use: Never Used Second Hand Smoke Exposure: No service: No Current occupational status: employed Current occupation: [employer] Current occupational exposures/hazards: No Cognitive needs: No Hearing needs: No Vision needs: No Questionnaire PHQ-9 Over the last 2 weeks, how often have you been bothered by any of the following problems? 1. Little interest or pleasure in doing things: not at all 2. Feeling down, depressed, or hopeless: not at all 3. Trouble falling or staying asleep, or sleeping too much: not at all 4. Feeling tired or having little energy: not at all 5. Poor appetite or overeating: not at all 6. Feeling bad about yourself - or that you are a failure or have let yourself or your family down: not at all 7. Trouble concentrating on things, such as reading the newspaper or watching television: not at all 8. Moving or speaking so slowly that other people could have noticed. Or the opposite - being so fidgety or restless that you have been moving around a lot more than usual: not at all 9. Thoughts that you would be better off or of hurting yourself in some way: not at all Total score: 0 Depression Screening Interpretation: Negative Depression Screening Done: Yes 21759 - PHQ-9 Billing: Yes Source: Developed by Drs. Jose Vee, Graciela Gracia, Adlo Silverman and colleagues, with an educational misha from [employer]. Thrive Questionnaire Date Thrive assessed: 02/04/25 I am a: Patient What is your living situation today?: I have a steady place to live Within the past 12 months, did the food you bought not last and you didn't have the money to get more?: Never true Within the past 12 months, did you worry whether your food would run out before you got money to buy more?: Never true Do you have trouble paying for medicines?: No Do you have trouble getting transportation to medical appointments?: No Do you have trouble paying your heating and electricity bill?: No Do you have trouble taking care of your child, family member or friend?: No Do you have trouble with day-to-day activities such as bathing, preparing meals, shopping, managing finances, etc.?: No Are you currently unemployed and looking for a job?: No Are you interested in more education?: No Please select the resources that you would like help with: None Currently or been in a relationship where the following occur: No concerns reported THRIVE Score: 0 AUDIT C Alcohol Use Questionnaire (AUDIT-C) 1. How often do you have a drink containing alcohol?: Monthly or less 2. How many drinks containing alcohol do you have on a typical day when you are drinking?: 5 or 6 3. How often do you have six or more drinks on one occasion?: Never Total Score: 3 Score Reviewed/Action Taken: Yes CASSIE-7 AMB Questionnaire CASSIE-7 Date CASSIE - 7 assessed: 02/04/25 Feeling nervous, anxious, or on edge: 0 = Not at all Not being able to stop or control worryin = Not at all Worrying too much about different things: 0 = Not at all Trouble relaxin = Not at all Being so restless that it is hard to sit still: 0 = Not at all Becoming easily annoyed or irritable: 0 = Not at all Feeling afraid as if something awful might happen: 0 = Not at all Total CASSIE-7 score (0-4 normal; 5-9 mild; 10-14 moderate; 15-21 severe): 0 Source: Developed by Drs. Jose Vee, Graciela Gracia, Aldo Silverman and colleagues, with an educational misha from [employer]. CASSIE-7 Assessment Billing CASSIE-7 Assessment Tool: CASSIE-7 Assessment 55957 Physical exam (Primary Care) Vital Signs: Last Vital Signs Pulse 81 02/04/25 08:28 BP 110/66 02/04/25 08:28 Pulse Ox 97 02/04/25 08:28 BMI result Body Mass Index 28.2 Tobacco/Smoking Status: Tobacco use Status Tobacco use date assessed 02/04/25 02/04/25 08:29 Patient Tobacco Use Status Former Tobacco user 02/04/25 08:29 Tobacco use type Cigarette 02/04/25 08:29 e-Cigarette/Vaping Use Never Used 02/04/25 08:29 PHQ-9: PHQ-9 Score PHQ-9: Total score 0 02/04/25 08:29 Depression Screening Interpretation: Negative Thrive Assessment: Date of Thrive Assessment Date Thrive assessed 02/04/25 02/04/25 08:29 Currently or been in a relationship where the following occur: No concerns reported Coding Level of Care Code Est Pt Level 3 (74888) Diagnoses Arm pain, left M79.602 Additional Codes CASSIE-7 Assessment Billing - CASSIE-7 Assessment Tool: CASSIE-7 Assessment 67646 ([id number]) PHQ-9 - 13690 - PHQ-9 Billing: Yes ([id number]) Assessment & Plan Assessment & Plan (1) Arm pain, left: Code(s): M79.602 - Pain in left arm Category: Medical Plan . Orders: Orders US extremity nonvascular avalos Today M79.602 - Pain in left arm
== END 2025-02-04 09:31 | disposition home or self-care (01) ==
LOC: HO.HMCC 08:20
PROVIDERS: PCP Nurse Practitioner Family; Visit Provider Nurse Practitioner Family
DX: M79.602 Pain in left arm (principal)

== ENCOUNTER → 2025-02-04 08:19 | Outpatient (BNVA) | payer OTHER, SELFPAY | PROVIDERS: PCP Nurse Practitioner Family; Visit Provider Nurse Practitioner Family | DX: M79.602 Pain in left arm (principal) | CPT/HCPCS: 96127 ==

== ENCOUNTER 2025-02-21 11:15 | Outpatient (REF) | payer OTHER, SELFPAY ==
--- NOTE | ~2025-02-21 | US_ITS ---
CLINICAL HISTORY: M79.602 - Pain in left arm --- Additional Notes or Special Instructions: left lana p region specifically Nonvascular ultrasound left upper extremity Comparison: None Findings: There are no abnormal masses or fluid collections. IMPRESSION: 1. Unremarkable exam This document has been electronically signed by: Ronni Rubio MD on 02/22/2025 09:01:26
== END 2025-02-21 11:16 | disposition home or self-care (01) ==
LOC: HO.HMGCX 11:15
PROVIDERS: PCP Nurse Practitioner Family; Visit Provider Nurse Practitioner Family
DX: M79.602 Pain in left arm (principal)
CPT/HCPCS: 76882

== ENCOUNTER → 2025-02-21 11:18 | Outpatient (BNV) | payer OTHER, SELFPAY | PROVIDERS: PCP Nurse Practitioner Family; Visit Provider Specialist | DX: M79.602 Pain in left arm (principal) | CPT/HCPCS: 76882 ==

== ENCOUNTER 2025-03-07 09:27 | Outpatient (REF) | payer OTHER, SELFPAY ==
--- NOTE | ~2025-03-07 | XR_ITS ---
EXAMINATION: XR SHOULDER 2 OR MORE VIEWS LEFT HISTORY: M79.602 - Pain in left arm COMPARISON: There are no prior studies available for comparison. FINDINGS: Three views of the left shoulder are submitted. Osseous mineralization is normal. There is no fracture or dislocation. The glenohumeral and acromioclavicular joint spaces are preserved. The soft tissues are unremarkable. XR/XR shoulder LT min 2V IMPRESSION: Unremarkable examination of the left shoulder. Electronically signed by: Jose Bardales MD 03/07/2025 10:24 AM EDT
--- NOTE | ~2025-03-07 | XR_ITS ---
EXAMINATION: XR CERVICAL SPINE CLINICAL INFORMATION: M79.602 - Pain in left arm COMPARISON: None available. TECHNIQUE: 3 views of the cervical spine were obtained. FINDINGS: Normal bone mineralization. No scoliosis. Normal lordosis. No subluxations. No compression deformity, fracture, or suspicious bone lesion. Moderate disc degeneration present C5-6 and C6-7. Remainder of the intervertebral discs are preserved. Normal facet alignment bilaterally. There are mild bilateral multilevel facet degenerative changes. Craniocervical junction and C1-2 articulation are intact and aligned. No prevertebral soft tissue abnormality. Lung apices appear clear. XR/XR cervical spine 2V IMPRESSION: 1. Mild to moderate degenerative spondylosis of the cervical spine relatively confined to C5-6 and C6-7. Electronically signed by: Adrian Joseph MD 03/07/2025 11:19 AM EDT
== END 2025-03-07 09:28 | disposition home or self-care (01) ==
LOC: HO.HMGCX 09:27
PROVIDERS: PCP Nurse Practitioner Family; Visit Provider Nurse Practitioner Family
DX: M79.602 Pain in left arm (principal)
CPT/HCPCS: 72040; 73030

== ENCOUNTER → 2025-03-07 09:30 | Outpatient (BNV) | payer OTHER, SELFPAY | PROVIDERS: PCP Nurse Practitioner Family; Visit Provider Radiology Diagnostic Radiology | DX: M47.812 Spondylosis without myelopathy or radiculopathy, cervical region (principal); M79.602 Pain in left arm | CPT/HCPCS: 72040; 73030 ==

== ENCOUNTER 2025-04-08 08:14 | Outpatient (REF) | payer OTHER, SELFPAY ==
[2025-04-08 14:05] LABS: Prostate Specific Antigen 4.51 ng/mL (<0.05-4.0)
== END 2025-04-08 08:15 | disposition home or self-care (01) ==
LOC: HO.HMGCLDS 08:14
PROVIDERS: PCP Nurse Practitioner Family; Visit Provider Urology
DX: E11.42 Type 2 diabetes mellitus with diabetic polyneuropathy (principal); R97.20 Elevated prostate specific antigen [PSA]; E11.65 Type 2 diabetes mellitus with hyperglycemia; Z12.5 Encounter for screening for malignant neoplasm of prostate
CPT/HCPCS: 36415; 82947; 83036; 84153

== ENCOUNTER 2025-04-08 08:14 | Outpatient (AMB) | payer OTHER, SELFPAY ==
--- NOTE | 2025-04-08 08:16 | MHC.OFFVIS ---
Vital Signs 04/08/25 08:17 Height 6 ft 5 in Weight 237 lb 3.478 oz BMI 28.1 BP 104/64 Blood Pressure Location Lt brachial Position Sitting Pulse 72 Pulse Source Pulse Oximeter Pulse Oximetry (%) 97 Oxygen Delivery Method Room Air Intake Visit Reasons: DM Intake Note: Patient present today for Type 2 Diabetes Mellitus Last Diabetic eye exam: Within the year Last Podiatry Visit: Doesn't have one Random Glucose: 124 mg/dl HgA1C: 6.7% Athletic Gear Custodian Required: No Accompanied by: Self / Same As Patient Allergies lisinopril Adverse Reaction (Mild, Verified 04/08/25 08:22) Cough Medication List - Last Reconciled 04/08/25 by Lizbeth Oneill PA-C albuterol sulfate 90 mcg/actuation 2 puffs inhalation Q6H PRN aspirin (Adult Aspirin Regimen) 81 mg PO DAILY atorvastatin 80 mg PO DAILY blood-glucose meter ([employer] Verio Flex Meter) As directed blood-glucose sensor ([employer] G7 Sensor device) As directed change every 10 days cetirizine (Zyrtec) 10 mg PO DAILY PRN [diabetic shoes extra depth orthopedic shoes ( 1 pair ) with customize heat molded multi density inner soles ( 3 pair) Dispense 1 Sig: As directed DX: And IDDM /polyneuropathy ( E11 0.42 ); hammertoe foot deformity ( M 20.41, and 20.42 ) pre ulcerative skin lesion ( L 85.1 ) Diagnosis ( E11 0.42 ) type 2 diabetes with polyneuropathy] doxazosin 4 mg PO BEDTIME 90 days empagliflozin (Jardiance) 25 mg PO DAILY fenofibrate 160 mg PO DAILY finasteride 5 mg PO .QOD 90 days gabapentin 100 mg PO BID 30 days insulin degludec (Tresiba FlexTouch U-200 insulin) 25 units (0.125 mL) subcut BEDTIME metformin 1,000 mg PO BID 90 days omega-3 acid ethyl esters 2 caps PO BID pen needle, diabetic (BD Clarissa 2nd Gen Pen Needle) As directed twice a day semaglutide (Ozempic) 2 mg (0.75 mL) subcut QWEEK tadalafil 20 mg PO ONCE PRN 30 days tadalafil 10 mg PO DAILY 90 days trazodone 150 mg PO BEDTIME PRN 90 days HPI HPI DM: Details: Patient is a 59-year-old male with a significant past medical history hyperlipidemia,, obstructive sleep apnea, and uncontrolled type 2 diabetes presenting today for a follow up regarding diabetes.. Endo: Dm-A1c is 6.7 He is currently on Ozempic 2 mg weekly, Jardiance 25 mg daily, metformin 1000 mg twice a day and Tresiba 25 units at bedtime. -he used to be on Actos however this was able to be discontinued with the increased dosage of Ozempic. He was on Trulicity in the past but had to change due to insurance coverage issues. He states that he did tolerate that drug but tolerates Ozempic better. He does not want to change his regimen at all. CGM-Dexcom download shows 96% usage, average glucose 151, G mi 6.9. Very hyperglycemic 4%, hyperglycemic 20%, in range 76%, hypoglycemic 0%, very hypoglycemic 0% -he denies any hypoglycemic events. -does not have a sewing machines salesperson would be interested in a referral. He states that it has been a few years since he has last seen a sewing machines salesperson. He does have peripheral neuropathy and states that he knows to check his feet regularly. he has been tested 2 x to confirm t2dm, mother type 2 dm -he is on an Arb and statin. -utd eye CV: Blood pressure today in the office is 104/64. His cholesterol is controlled with atorvastatin 80 mg and fenofibrate. No chest pain or shortness on breath. [facility] Medical History (Reviewed 02/04/25 @ 08:29 by Jf Arizmendi [facility]) Tubular adenoma Back pain with history of spinal surgery Neuropathy RLS (restless legs syndrome) Tendonitis Hyperparathyroidism Bronchitis JL (obstructive sleep apnea) Type 2 diabetes mellitus with polyneuropathy Hyperlipidemia LDL goal <100 Hypertriglyceridemia Surgical History Hx of excision of mass History of esophagogastroduodenoscopy (EGD) H/O colonoscopy Hx of removal of cyst (08/17/22) History of anterior cruciate ligament surgery History of rotator cuff surgery Family History Father Colon cancer Mother Breast cancer Diabetes mellitus Sister Brain cancer Sister No problems noted. Sister No problems noted. Sister No problems noted. Brother Substance use disorder Brother No problems noted. Brother No problems noted. Son No problems noted. 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 Current occupational exposures/hazards: No Cognitive needs: No Hearing needs: No Vision needs: No Physical Exam Vital Signs: Last Vital Signs Pulse 72 04/08/25 08:17 BP 104/64 04/08/25 08:17 Pulse Ox 97 04/08/25 08:17 Oxygen Delivery Method Room Air 04/08/25 08:17 BMI result Body Mass Index 28.1 Const Orientation/consciousness: patient oriented x3 Neck Neck: Yes no lymphadenopathy Thyroid: Thyroid normal Carotids: no bruits Resp Auscultation: clear to auscultation bilaterally Cardio Rate: regular rate Rhythm: regular rhythm Heart sounds: S1 normal heart sound present and S2 normal heart sound present Peripheral pulses: dorsalis pedis present Neuro General: patient oriented x3, gait normal and no focal motor deficits Extrem Other: Monofilament sensation absent bilaterally. Vibratory sensation absent bilaterally. Skin intact. General: Yes normal to inspection Results AMB Hemoglobin A1c AMB Hemoglobin A1c 6.7 % Last Edit by TIMBO Heard on 04/08/25 08:37 Results Reviewed Results Reviewed: Laboratory Last Values Glucose (Clinic) 124 mg/dL (60-115) H 04/08/25 08:24 Laboratory Tests 02/09/24 12/31/24 04/08/25 08:04 08:09 08:24 Glucose (Clinic) 124 H Hgb A1c (Clinic) 6.5 H Urine Creatinine 127.50 Urine Microalbumin 7.0 Microalb/Creat Ratio 5.4 Assessment & Plan Assessment & Plan (1) Type 2 diabetes mellitus with polyneuropathy: Code(s): E11.42 - Type 2 diabetes mellitus with diabetic polyneuropathy Category: Medical Plan: Referral to Podiatry. Phone number provided to Dr. Haq. (2) Uncontrolled diabetes mellitus with hyperglycemia: Code(s): E11.65 - Type 2 diabetes mellitus with hyperglycemia Category: Medical Qualifiers: Diabetes mellitus type: type 2 Qualified Code(s): E11.65 - Type 2 diabetes mellitus with hyperglycemia Plan: We will continue current regimen. He is currently controlled. We will follow up in 3 months. Advised to complete labs prior to appointment. Follow up sooner if needed. (3) Hyperlipidemia LDL goal <100: Code(s): E78.5 - Hyperlipidemia, unspecified Category: Medical Plan: Continue current regimen. We will check labs. Orders: Orders AMB Hemoglobin A1c Today E11.42 - Type 2 diabetes mellitus with diabetic polyneuropathy, E11.65 - Type 2 diabetes mellitus with hyperglycemia, Z13.9 - Encounter for screening, unspecified Referrals Podiatry Referral E11.42 - Type 2 diabetes mellitus with diabetic polyneuropathy, E11.65 - Type 2 diabetes mellitus with hyperglycemia Coding Level of Care Code Est Pt Level 4 (67421) Complex EM visit Add On G2211 Diagnoses Type 2 diabetes mellitus with polyneuropathy E11.42 Uncontrolled type 2 diabetes mellitus with hyperglycemia E11.65 Diabetes mellitus type: type 2 Hyperlipidemia LDL goal <100 E78.5
[2025-04-08 08:17] VITALS: BP 104/64; PULSE 72; O2SAT 97; BMI 28.1
[2025-04-08 08:28] LABS: Glucose, Whole Blood 124 mg/dL (60-115)
--- OUTSIDE RECORDS SUMMARY | 2025-04-08 08:29 | XMS_ITS | Patient Health Record ---
Author Organization [facility] Address [address] [place] [address] Care Team Providers Care Consultant Nurse Name Role Phone Trey Juarez Primary Care Provider Unav ailable Trupti Courtney Unavailable [phone] Reason For Referral No Information Medications Medication SIG (Take, Route, Frequency, Duration) Notes Start Date End Date Status Extra-Depth Diabetic Shoes with 3 Pair Custom heat-molded multi-density innersoles . 1pair shoes/3sets inserts . . for 1 year 01/23/2013 Not-Takantonieta adorno Atorvastatin Calcium 40 MG 1 tablet Orally Once a day for 30 day(s) Active metFORMIN HCl 1000 MG 1 tablet with a me al Orally Twice a day Active Extra Depth Orthopedic Shoes (1 Pair) with Customized Heat Molded Multidensity Innersoles (3 Pair) as directed Dx: NIDDM/Polyneuropathy (E11.42), Hammertoe Foot Deformity (M20.41,M20.42), Preulcerative Skin Lesion(s) (L85.1 04/15/2020 Active Fenofibrate 160 MG 1 tablet Orally Once a day for 30 day(s) Active Trulicity 1.5 MG/0.5ML as directed Subcutaneous Active Pioglitazone HCl 30 MG 1 tablet Orally O nce a day Active Multivitamin - 1 tablet Orally Once a day for 30 day(s) Active HumaLOG 100 UNIT/ML as directed Subcutaneous Active ProAir HFA 108 (90 Base) MCG/ACT 1 puff as needed Inhalation every 4 hrs Not-Jordan adorno PriLOSEC Active Vitamin D3 50 MCG (2000 UT) 1 capsule Orally Once a day for 30 day(s) Active Tresiba FlexTouch 200 UNIT/ML as directed Subcutaneous Not -Taking Aspirin EC Low Dose 81 MG 1 tablet Orally Once a day for 30 day(s) Active Vitamin B-12 1000 MCG 1 tablet Orally On ce a day for 30 day(s) Not-Taking Immunizations Vaccine Route Administration Date Status Comme nts Influenza Unknown 06/25/2019 Administered Social History Tobacco use other than smoking: Question Answer Notes Are you an other tobacco user? No Problems Problem Type SNOMED Code ICD Code Onset Dates Problem Status W/U Status Risk Notes Problem [id number] Type 2 diabetes mellitus with polyneuropathy (E11.42) Active confirmed Plan Of Treatment Pending Test Test Name Order Date [id number] NAIL, 6 OR MORE 01/23/2013 [id number] NAIL, 6 OR MORE 03/27/2013 [id number] SKIN LESIONS, 2 TO 4 03/27/20 13 [id number] SKIN LESIONS, 2 TO 4 01/24/20 13 Insurance Providers Payer Name Payer Address Payer Phone Subscriber Number Group Number Insured Name Patient Relationship to Insured Coverage Start Date Coverage End Date [facility] [address] [place] [id number] Damien Cross i Self - patient is the insured Medical (General) History Medical History History ICD Code chicken pox numbness type II diabetes chronic sinusitis Surgical History Surgery Date(Month/Year) knee ACL 1996 shoulder remove arthritis 2010 back surgery
== END 2025-04-08 08:51 | disposition home or self-care (01) ==
LOC: HO.ENCR 08:14
PROVIDERS: PCP Nurse Practitioner Family; Visit Provider Physician Assistant
DX: Z13.9 Encounter for screening, unspecified (principal); E11.65 Type 2 diabetes mellitus with hyperglycemia; E11.42 Type 2 diabetes mellitus with diabetic polyneuropathy; E78.5 Hyperlipidemia, unspecified

== ENCOUNTER 2025-04-10 09:00 | Outpatient (RCR) | payer OTHER, SELFPAY ==
--- NOTE | 2025-03-27 08:38 | MHC.PT.EP ---
[facility] [place] Office [place] [facility] [place] [facility] [address] Mateo Rojas [address] [phone] F: [phone] F: [phone] F: [phone] F: [phone] Physical Therapy Plan of Care Date of Evaluation: 03/27/25 Date of Surgery: n/a Diagnosis: cervical radiculopathy Assessment: Patient is a 59 year old male presenting to PT with referral for cervical radiculopathy. Pt reports onset of pain began months ago due to insidious onset. He presents today with impairments in pain, cervical ROM, shoulder ROM, posture, shoulder strength, tenderness to soft tissue. 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 Pt expresses air conditioning specialist goal of reducing pain, and is motivated to work towards this in PT. Clinical presentation today is most consistent with signs and sx associated with neck and shoulder pain and pt will benefit from skilled PT 2 week x 4 weeks to address the following problems and impairments noted upon evaluation: pain, cervical ROM, shoulder ROM, posture, shoulder strength, tenderness to soft tissue. These problems limit the patient with the following functional activities: work, ADLs, reaching, lifting, sleeping. The prescribed treatment plan of care is medically necessary. Co-morbidities of T2DM were identified and taken into considerations of plan of care. Pt was educated on HEP, role of PT, prognosis, POC. Frequency and Duration: The patient will be seen 2 x week x 4 weeks Short Term Goals: Pt will demonstrate centralization of sx in 2 weeks. Pt will demonstrate improved L shoulder ROM by 20 degrees in all directions in 2 weeks. Pt will demonstrate less tenderness to soft tissue in 2 weeks. Reagent Tender Goals: Pt will demonstrate improved NDI score by 10% in 4 weeks for improved functional mobility. Pt will demonstrate ability to reach and lift with min to no pain in 4 weeks for return to PLOF. Pt will demonstrate improved ability to sleep with min to no pain in 4 weeks for improved QOL. Treatment Plan: Modalities to reduce pain, spasms and effusion. Manual therapy to restore motion and function. Therapeutic exercise to improve strength and flexibility. Neuromuscular re-education for posture and balance. Therapeutic activities to return to functional activities of daily living. Electronically signed by: Stephanie Thorpe, PT, DPT, ATC Please sign and return to therapist. Thank you for your referral.
--- NOTE | 2025-04-10 09:41 | MHC.PT.DC ---
[facility] [place] Office [place] Office [place] Office [address] Maeto Rojas [address] [phone] F: [phone] F: [phone] F: [phone] F: [phone] Physical Therapy Discharge Report Diagnosis: cervical radiculopathy Date of Surgery: n/a Date of Evaluation: 03/27/25 Date of Discharge: 04/10/25 Treatments to Date: 4 Cancellations to Date: 2 No Shows to Date: 0 Discharge Status: Recommend MD Follow-up Discharge Summary: 04/10/2025: He is still not feeling relief with PT. Continued with same program as he will not tolerate progressions with his ongoing pain/sx. We have tried both neck and shoulder treatment all without success. Based on his lack of progress we will hold PT at this time and I recommend he follows up with his referring provider for further evaluation/treatment of his pain. At this time it is not clear whether the source of his pain is actually his neck vs shoulder. Electronically signed by: Stephanie Thorpe, PT, DPT, ATC Please sign and return to therapist. Thank you for your referral.
== END 2025-04-10 09:41 | disposition home or self-care (01) ==
LOC: HO.PTCHIC 09:00
PROVIDERS: PCP Nurse Practitioner Family; Visit Provider Nurse Practitioner Family
DX: M54.12 Radiculopathy, cervical region (principal)
CPT/HCPCS: 97110; 97140; 97161

== ENCOUNTER 2025-04-11 07:18 | Outpatient (AMB) | payer OTHER, SELFPAY ==
--- OUTSIDE RECORDS SUMMARY | 2025-04-11 07:20 | XMS_ITS | Patient Health Record ---
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 Name Role Phone Trey Juarez Primary Care Provider Unav ailable Trupti Courtney Unavailable [phone] Reason For Referral No Information Medications Medication [...] Problem Status W/U Status Risk Notes Problem [id number] Type 2 diabetes mellitus with polyneuropathy (E11.42) Active confirmed Plan Of Treatment Pending Test Test Name Order Date [id number] NAIL, 6 OR MORE 01/23/2013 [id number] NAIL, 6 OR MORE 03/27/2013 [id number] SKIN LESIONS, 2 TO 4 03/27/20 13 [id number] SKIN LESIONS, 2 TO 4 01/24/20 13 Insurance Providers Payer Name Payer Address Payer Phone Subscriber Number Group Number Insured Name Patient Relationship to Insured Coverage Start Date Coverage End Date [facility] ([facility]) [address] [place] [id number] Damien Cross i Self - patient is the insured Medical (General) History Medical History History ICD Code chicken pox numbness type II diabetes chronic sinusitis Surgical History Surgery Date(Month/Year) knee ACL 1996 shoulder remove arthritis 2010 back surgery
--- NOTE | 2025-04-11 07:59 | A.OFFPC_ITS ---
Intake Visit Reasons: Physical therapy discussion Allergies lisinopril Adverse Reaction (Mild, Verified 04/08/25 08:22) Cough Tobacco use date assessed: 02/04/25 Dental Screening Dental Screen Date: 02/04/25 HPI Physical therapy discussion HPI Details History of Present Illness The patient is a 59-year-old male presenting with a burning sensation in the left upper extremity and associated shoulder and neck pain. The symptoms began in January and have progressively worsened over time. Initially, the patient repo rted a burning sensation in the left upper extremity, particularly affecting the left trapezius and triceps region, extending to the shoulder down his LUE. The patient, who typically does not complain of pain, noted significant discomfort with most likely nerve involvement. An ultrasound of the left upper extremity was performed, yielding unremarkable results. Despite physical therapy, the patient's condition has deteriorated, with increased shoulder pain and cervical neck pain. The patient reports difficulty sleeping due to the pain, which is exacerbated by movement of the left upper extremity. Review of Systems - Musculoskeletal: Reports burning sensa tion in the left upper extremity, shoulder pain, and cervical neck pain. Denies any other musculoskeletal symptoms. - Neurological: Reports nerve involvemen t in the left upper extremity. Denies any other neurological symptoms. Plan The patient will undergo an MRI of both the cervical spine and shoulder to further investigate the cause of the burning sensation and pain in the left upper extremity. This diagnostic imaging is necessary due to the progression of symptoms and the unremarkable findings from the previous ultrasound. Further management will be determined based on the MRI results, with potential adjustments to the current treatment plan. Discussion Notes I discussed with the patient the need for an MRI of the cervical spine and shoulder to better understand the underlying cause of his symptoms. We reviewed the unremarkable ultrasound findings and the importance of further imaging given the worsening of his condition. The patient was informed that the results of the MRI would guide future treatment decisions. Patient Instructions - Schedule an MRI for the cervical spine and shoulder as soon as possible. - Continue with current pain management strategies until further notice. - Follow up with the clinic after the MR I to discuss results and next steps. [facility] Medical History Tubular adenoma Back pain with history of spinal surgery Neuropathy RLS (restless legs syndrome) Tendonitis Hyperparathyroidism Bronchitis LJ (obstructive sleep apnea) Type 2 diabetes mellitus with polyneuropathy Hyperlipidemia LDL goal <100 Hypertriglyceridemia Surgical History Hx of excision of mass History of esophagogastroduodenoscopy (EGD) H/O colonoscopy Hx of removal of cyst (08/17/22) History of anterior cruciate ligament surgery History of rotator cuff surgery Family History Father Colon cancer Mother Breast cancer Diabetes mellitus Sister Brain cancer Sister No problems noted. Sister No problems noted. Sister No problems noted. Brother Substance use disorder Brother No problems noted. Brother No problems noted. Son No problems noted. Social History Housing: House Patient Tobacco Use Status: Former Tobacco user Tobacco use type: Cigarette Cigarettes Per Day: 10 Years Smoked: 15 e-Cigarette/Vaping Use: Never Used Second Hand Smoke Exposure: No service: No Current occupational status: employed Current occupation: [employer] Current occupational exposures/hazards: No Cognitive needs: No Hearing needs: No Vision needs: No Questionnaire Thrive Questionnaire Date Thrive assessed: 01/28/25 I am a: Patient What is your living situation today?: I have a steady place to live Within the past 12 months, did the food you bought not last and you didn't have the money to get more?: Never true Within the past 12 months, did you worry whether your food would run out before you got money to buy more?: Never true Do you have trouble paying for medicines?: No Do you have trouble getting transportation to medical appointments?: No Do you have trouble paying your heating and electricity bill?: No Do you have trouble taking care of your child, family member or friend?: No Do you have trouble with day-to-day activities such as bathing, preparing meals, shopping, managing finances, etc.?: No Are you currently unemployed and looking for a job?: No Are you interested in more education?: No Please select the resources that you would like help with: None Currently or been in a relationship where the following occur: No concerns reported THRIVE Score: 0 CASSIE-7 AMB Questionnaire CASSIE-7 Date CASSIE - 7 assessed: 02/04/25 Source: Developed by Drs. Jose Vee, Graciela Gracia, Aldo Silverman and colleagues, with an educational misha from [employer]. Physical exam (Primary Care) Tobacco/Smoking Status: Tobacco use Status Tobacco use date assessed 02/04/25 02/04/25 08:29 Patient Tobacco Use Status Former Tobacco user 02/04/25 08:29 Tobacco use type Cigarette 02/04/25 08:29 e-Cigarette/Vaping Use Never Used 02/04/25 08:29 Thrive Assessment: Date of Thrive Assessment Date Thrive assessed 01/28/25 04/08/25 08:14 Currently or been in a relationship where the following occur: No concerns reported Telehealth Telehealth Telehealth Platform: [employer] (formerly [employer]) Location of provider rendering services: practice address Location of patient: address on file Patient Identification confirmed using: Name, : Yes Telehealth method: video Patient verbally consented to treatment: Yes Patient verbally consented to billing insurance company: Yes Patient informed of any privacy concerns related to visit: Yes Minutes spent on Phone/Video with Pt.: 10 Coding Level of Care Code Tele Est Pt Level 3 (50951) Diagnoses Cervical neck pain with evidence of disc disease M50.90 Pain radiating to left shoulder M25.512 Assessment & Plan Assessment & Plan (1) Cervical neck pain with evidence of disc disease: Code(s): M50.90 - Cervical disc disorder, unspecified, unspecified cervical region Category: Medical (2) Pain radiating to left shoulder: Code(s): M25.512 - Pain in left shoulder Category: Medical Plan . Orders: Orders MR cervical spine wo con Today M25.512 - Pain in left shoulder, M50.90 - Cervical disc disorder, unspecified, unspecified cervical region MR shoulder LT wo con Today M25.512 - Pain in left shoulder, M50.90 - Cervical disc disorder, unspecified, unspecified cervical region
== END 2025-04-11 08:09 | disposition home or self-care (01) ==
LOC: HO.HMCC 07:18
PROVIDERS: PCP Nurse Practitioner Family; Visit Provider Nurse Practitioner Family
DX: M50.90 Cervical disc disorder, unspecified, unspecified cervical region (principal); M25.512 Pain in left shoulder

== ENCOUNTER → 2025-04-11 07:18 | Outpatient (BNVA) | payer OTHER, SELFPAY | PROVIDERS: PCP Nurse Practitioner Family; Visit Provider Nurse Practitioner Family ==

== ENCOUNTER 2025-04-16 09:37 | Outpatient (AMB) | payer OTHER, SELFPAY ==
--- NOTE | 2025-04-16 07:55 | A.OFFVIS_ITS ---
Intake Visit Reasons: Followup/PSA Intake Note: Patient is present for follow up PSA Urology Medication:FINASTERIDE,TADALAFIL Antibiotic Allergy:NONE Blood Thinner:ASPIRIN psa 04/08/25 :4.51 Roll Tension Tester Required: No Accompanied by: Self / Same As Patient Allergies lisinopril Adverse Reaction (Mild, Verified 04/16/25 09:40) Cough HPI Comments Details: Damien is a pleasant male. He is a patient Dr. Kong. He seen for the following urologic conditions - elevated PSA - erectile dysfunction with diabetes - lower urinary tract symptoms Six-month follow-up Follow-up response to daily tadalafil 10 mg Continuing to be effective - on high dose oral therapy PSA remains borderline high. Does continue to take low-dose finasteride Repeat PSA six-month in office Prior testosterone normal range Elevated PSA Labs - 06/14 4.6, 09/14 4.9 16% Discussed risk factors no family history Prostate biopsy - 10/14 3 cores small acinar proliferation Current therapy finasteride - Tuesday, Tuesday, Tuesday - 05/15 2.7. 11/16 2.9, 02/14 4.0, 11/17 2.7, 04/17 4.5 Lower urinary tract symptoms Urinary urgency and frequency, nocturia x3, weakness of stream, hesitancy No prior therapy Given combination with erectile dysfunction initiation daily tadalafil Erectile dysfunction setting of diabetes Diabetic diagnosis 2014 On combination therapy - 5mg daily tadalaifil with 20mg on demand Recent HbA1c 9.9 with elevated cholesterol Background of sleep apnea under adjustment Labs 09/14 T565 [facility] Medical History Tubular adenoma Back pain with history of spinal surgery Neuropathy RLS (restless legs syndrome) Tendonitis Hyperparathyroidism Bronchitis LJ (obstructive sleep apnea) Type 2 diabetes mellitus with polyneuropathy Hyperlipidemia LDL goal <100 Hypertriglyceridemia Surgical History Hx of excision of mass History of esophagogastroduodenoscopy (EGD) H/O colonoscopy Hx of removal of cyst (08/17/22) History of anterior cruciate ligament surgery History of rotator cuff surgery Family History Father Colon cancer Mother Breast cancer Diabetes mellitus Sister Brain cancer Sister No problems noted. Sister No problems noted. Sister No problems noted. Brother Substance use disorder Brother No problems noted. Brother No problems noted. Son No problems noted. Social History Housing: House Patient Tobacco Use Status: Former Tobacco user Tobacco use type: Cigarette Cigarettes Per Day: 10 Years Smoked: 15 e-Cigarette/Vaping Use: Never Used Second Hand Smoke Exposure: No service: No Current occupational status: employed Current occupation: [employer] Current occupational exposures/hazards: No Cognitive needs: No Hearing needs: No Vision needs: No Review of Systems Const All systems reviewed & are unremarkable except as noted in HPI and below Reports no additional complaints Resp Reports no additional complaints GI Reports no additional complaints Reports as per HPI Musc Reports no additional complaints Physical Exam Telemedicine evaluation Appropriate responses Regular breathing rate and rhythm HEENT Head: Yes normal to inspection Ears: hearing grossly normal bilaterally Eyes General: appearance normal, both eyes and all related structures Neck Neck: Yes normal visual inspection Chest Chest palpation & inspection: normal inspection of the chest Resp Effort & Inspection: normal respiratory effort and able to speak in complete sentences Telehealth Telehealth Telehealth Platform: [id number] Location of provider rendering services: practice address Location of patient: address on file Patient Identification confirmed using: Name, : Yes Telehealth method: video Patient verbally consented to treatment: Yes Patient verbally consented to billing insurance company: Yes Patient informed of any privacy concerns related to visit: Yes Minutes spent on Phone/Video with Pt.: 15 Assessment & Plan Assessment & Plan (1) Elevated PSA: Comment: 10/14 Prostate Biopsy 3 core MIKIE Code(s): R97.20 - Elevated prostate specific antigen [PSA] Category: Medical (2) Erectile dysfunction associated with type 2 diabetes mellitus: Code(s): E11.69 - Type 2 diabetes mellitus with other specified complication; N52.1 - Erectile dysfunction due to diseases classified elsewhere Category: Medical (3) BPH loc w urin obs/LUTS: Code(s): N40.1 - Benign prostatic hyperplasia with lower urinary tract symptoms Category: Medical Plan Prescriptions refilled Six-month follow-up repeat PSA Orders: Orders Testosterone, Total 6 Months E11.69 - Type 2 diabetes mellitus with other specified complication, N52.1 - Erectile dysfunction due to diseases classified elsewhere Medications: Refilled doxazosin 4 mg PO BEDTIME 90 tabs 3RF 90 days N13.8 - Other obstructive and reflux uropathy, N40.0 - Benign prostatic hyperplasia without lower urinary tract symptoms, N40.1 - Benign prostatic hyperplasia with lower urinary tract symptoms finasteride Take 1/2 tab - Tuesday, Tuesday, Tuesday 5 mg PO .QOD 45 tabs 1RF 90 days N40.1 - Benign prostatic hyperplasia with lower urinary tract symptoms tadalafil Take daily for prostate and erections 10 mg PO DAILY 90 tabs 1RF 90 days E11.69 - Type 2 diabetes mellitus with other specified complication, N40.1 - Benign prostatic hyperplasia with lower urinary tract symptoms, N52.1 - Erectile dysfunction due to diseases classified elsewhere Patient Instructions: This note is constructed using voice recognition software. While every effort has been made to ensure accuracy emt paramedic errors may have been included. Imaging studies, laboratory and physical exam results were discussed and reviewed in detail. No major barriers to patient understanding were identified. An opportunity to ask questions regarding the treatment plan was provided. All questions were answered. The patient expressed understanding and agreement with the above treatment plan. The patient is aware they should contact our office by phone for worsening of their current condition or the appearance of new urologic symptoms. Compliance is encouraged with any medications and followup testing that is ordered. It is a privilege to participate in the urologic care of your patient. If you have any questions or concerns regarding treatment for the above conditions, or other urologic issues, please do not hesitate to contact me. The office telephone contact is [phone]. Sincerely, Dr Grant Fitch MD, [facility] - Urology Compassionate Specialist Care for the Genitourinary System Coding Level of Care Code Tele Est Pt Level 3 (76528) Complex EM visit Add On G2211 Diagnoses Elevated PSA R97.20 Erectile dysfunction associated with type 2 diabetes mellitus E11.69; N52.1 BPH loc w urin obs/LUTS N40.1
--- OUTSIDE RECORDS SUMMARY | 2025-04-16 10:22 | XMS_ITS | Patient Health Record ---
Author Organization [facility] Address [address] [place] [address] Care Team Providers Care Medical Orderly Name Role Phone Trey Juarez Primary Care Provider Unav ailable Trupti Courtney Unavailable [phone] Reason For Referral No Information Medications Medication [...] Problem Status W/U Status Risk Notes Problem [id number] Type 2 diabetes mellitus with polyneuropathy (E11.42) Active confirmed Plan Of Treatment Pending Test Test Name Order Date [id number] NAIL, 6 OR MORE 01/23/2013 [id number] NAIL, 6 OR MORE 03/27/2013 [id number] SKIN LESIONS, 2 TO 4 03/27/20 13 [id number] SKIN LESIONS, 2 TO 4 01/24/20 13 Insurance Providers Payer Name Payer Address Payer Phone Subscriber Number Group Number Insured Name Patient Relationship to Insured Coverage Start Date Coverage End Date [facility] [address] [place] [id number] Damien Cross i Self - patient is the insured Medical (General) History Medical History History ICD Code chicken pox numbness type II diabetes chronic sinusitis Surgical History Surgery Date(Month/Year) knee ACL 1996 shoulder remove arthritis 2010 back surgery
== END 2025-04-16 14:18 | disposition home or self-care (01) ==
LOC: HO.HUSH 09:37
PROVIDERS: PCP Nurse Practitioner Family; Visit Provider Urology
DX: R97.20 Elevated prostate specific antigen [PSA] (principal); E11.69 Type 2 diabetes mellitus with other specified complication; N52.1 Erectile dysfunction due to diseases classified elsewhere; N40.1 Benign prostatic hyperplasia with lower urinary tract symptoms
CPT/HCPCS: 99213

== ENCOUNTER 2025-05-06 07:10 | Outpatient (REF) | payer OTHER, SELFPAY ==
--- NOTE | ~2025-05-06 | MR_ITS ---
CLINICAL HISTORY: M50.90 - Cervical disc disorder, unspecified, unspecified cervical region MRI left shoulder without contrast Comparison: None provided Findings: Heterogeneous irregular anterior glenoid labrum. Transverse fluid signal noted bony base of labrum. Findings likely represent an labral tear. Small joint effusion is identified. Rotator cuff tendons intact without tear. Biceps tendon normally positioned without tear. No acute bony signal abnormality is identified. Impression: Anterior glenoid labrum tear with small joint effusion This document has been electronically signed by: Ramon Cartwright MD on 05/07/2025 19:14:12
--- NOTE | ~2025-05-06 | MR_ITS ---
EXAMINATION: MR CERVICAL SPINE WITHOUT CONTRAST CLINICAL INFORMATION: Cervical disc disorder, unspecified. COMPARISON: Correlated to x-ray dated March 07, 2025. TECHNIQUE: MRI of the cervical spine was obtained using routine sequences without contrast. FINDINGS: Craniocervical junction is intact. Normal position of the cerebellar tonsils. Subtle bone marrow STIR signal in the endplates of C5-6 and C6-7 levels. Marginal osteophyte formation, decreased intervertebral disc height and signal at C5-6 and C6-7 levels. Grade 1 anterolisthesis C4-5. Grade 1 retrolisthesis C5-6. Cervical spinal cord signal is normal. C2-3: No disc herniation. No neuroforamina stenosis. C3-4: No disc herniation. No neuroforamina stenosis. C4-5: Broad-based disc osteophyte compresses formation. No cord compression. No neuroforamina stenosis. C5-6: Broad-based disc osteophyte complex formation. No cord compression. Left neuroforamina narrowing on a degenerative basis. C6-7: Broad-based disc osteophyte consummation. No cord compression. Left neuroforamina narrowing. C7-T1: No disc herniation. No neuroforamina stenosis. No prevertebral compartment hematoma, mass or fluid collection. Flow-void signal within the main vessels is normal. Left vertebral artery is dominant. MR/MR cervical spine wo con IMPRESSION: Cervical spondylosis C5-6 and C6-7 resulting in mild left neuroforamina narrowing without cord compression, cord edema and or myelopathy. Electronically signed by: Yaya Calvo MD 05/06/2025 10:29 AM EDT
== END 2025-05-06 07:11 | disposition home or self-care (01) ==
LOC: HO.MRI 07:10
PROVIDERS: PCP Nurse Practitioner Family; Visit Provider Nurse Practitioner Family
DX: M50.90 Cervical disc disorder, unspecified, unspecified cervical region (principal); M25.512 Pain in left shoulder
CPT/HCPCS: 72141; 73221

== ENCOUNTER → 2025-05-06 07:17 | Outpatient (BNV) | payer OTHER, SELFPAY | PROVIDERS: PCP Nurse Practitioner Family; Visit Provider Radiology Diagnostic Radiology | DX: S43.432A Superior glenoid labrum lesion of left shoulder, initial encounter (principal) | CPT/HCPCS: 73221 ==

== ENCOUNTER 2025-05-13 10:52 | Outpatient (AMB) | payer OTHER, SELFPAY ==
--- NOTE | 2025-05-13 11:19 | AM.OFFWIN_ITS ---
Intake Vital Signs 05/13/25 11:21 Height 6 ft 5 in Weight 230 lb BMI 27.3 BP 108/60 Blood Pressure Location Rt brachial Position Sitting Pulse 79 Pulse Source Pulse Oximeter Temp 98.2 F Temp Source Oral Pulse Oximetry (%) 97 Oxygen Delivery Method Room Air Intake Visit Reasons: EP Blisters on bottom of both feet Intake Note: c/o painful blisters on the bottom of both feet after walking on the beach 2 days Patient Tobacco Use Status: Former Tobacco user Allergies lisinopril Adverse Reaction (Mild, Verified 05/13/25 11:21) Cough Do you need a note to return to daycare/school/sports/work: No HPI EP Blisters on bottom of both feet HPI Details This is a 59-year-old male patient who presents to the walk-in clinic today with report of blisters/burn on the bottom of his feet. States that he was walking on the beach over this past weekend, and did not realize how hot the sand was. History of diabetic neuropathy in BLE. He later developed some blistering that then opened on the bottom of both of his feet. He currently has an open area on each of his feet, which are causing pain, and he is concerned are going to get infected. He has been keeping them clean/dry, and his , who is an RN, has been applying antibiotic ointment as needed. Denies any fevers/chills. [facility] Medical History Tubular adenoma Back pain with history of spinal surgery Neuropathy RLS (restless legs syndrome) Tendonitis Hyperparathyroidism Bronchitis LJ (obstructive sleep apnea) Type 2 diabetes mellitus with polyneuropathy Hyperlipidemia LDL goal <100 Hypertriglyceridemia Surgical History Hx of excision of mass History of esophagogastroduodenoscopy (EGD) H/O colonoscopy Hx of removal of cyst (08/17/22) History of anterior cruciate ligament surgery History of rotator cuff surgery Family History Father Colon cancer Mother Breast cancer Diabetes mellitus Sister Brain cancer Sister No problems noted. Sister No problems noted. Sister No problems noted. Brother Substance use disorder Brother No problems noted. Brother No problems noted. Son No problems noted. 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[employer] Current occupational exposures/hazards: No Cognitive needs: No Hearing needs: No Vision needs: No Review of Systems Const All systems reviewed & are unremarkable except as noted in HPI and below Physical Exam Vital Signs: Last Vital Signs Temp 98.2 F 05/13/25 11:21 Pulse 79 05/13/25 11:21 BP 108/60 05/13/25 11:21 Pulse Ox 97 05/13/25 11:21 Oxygen Delivery Method Room Air 05/13/25 11:21 BMI result Body Mass Index 27.3 Const General: cooperative and no acute distress Resp Effort & Inspection: normal respiratory effort Skin Other: Open areas noted to plantar aspects of feet - L foot, approx 1.5x1cm proximal to great and second toe, R foot, approx 0.5x0.5cm to medial aspect of second toe. Wound bases appear with red granulation tissue. No drainage. No surrounding erythema or warmth. Tender to palpation. Extrem General: Yes capillary refill normal and Yes no clubbing, cyanosis or edema Psych Appearance: grossly normal Mental Status: mental status grossly normal Speech and movement: Normal speech and movement present Assessment & Plan Assessment & Plan (1) Open wound of left foot excluding toes without complication: Code(s): S91.302A - Unspecified open wound, left foot, initial encounter Qualifiers: Encounter type: initial encounter Qualified Code(s): S91.302A - Unspecified open wound, left foot, initial encounter Plan: Areas cleansed with betadine. Xeroform dressings applied to both sites and DSD and gauze wrap applied. Patient has diabetic peripheral neuropathy and history of infected wound on foot following puncture wound, which required IV abx. I am going to start him on Kelfex. We reviewed indications, use, possible side effects of medication. We discussed methods of wound care at home. He feels confident his who is an RN we will be able to help him. We discussed that should he develop any worsening symptoms/pain/drainage, fever/chills, redness/warmth of surrounding skin, he should return to the clinic or go to the emergency department for further evaluation. Patient verbalizes understanding and agrees to plan. (2) Open wound of toe of right foot: Code(s): S91.109A - Unspecified open wound of unspecified toe(s) without damage to nail, initial encounter Plan: As above Medications: New cephalexin 500 mg PO QID 28 caps 0RF 7 days S91.109A - Unspecified open wound of unspecified toe(s) without damage to nail, initial encounter, S91.302A - Unspecified open wound, left foot, initial encounter Coding Level of Care Code Est Pt Level 4 (23731) Diagnoses Open wound of left foot excluding toes without complication, initial encounter S91.302A Encounter type: initial encounter Open wound of toe of right foot S91.109A
[2025-05-13 11:21] VITALS: BP 108/60; PULSE 79; TEMP 36.8; O2SAT 97; BMI 27.3
--- OUTSIDE RECORDS SUMMARY | 2025-05-13 11:58 | XMS_ITS | Patient Health Record ---
Author Organization [facility] Address [address] [place] [address] Care Team Providers Care Kelp Or Seagrass Gatherer Name Role Phone Trey Juarez Primary Care Provider Unav ailable Trupti Courtney Unavailable [phone] Reason For Referral No Information Medications Medication SIG (Take, Route, Frequency, Duration) Notes Start Date End Date Status Extra-Depth Diabetic Shoes with 3 Pair Custom heat-molded multi-density innersoles . 1pair shoes/3sets inserts . .; Duration: 1 year 01/23/2013 Not-Taking Atorvastatin Calcium 40 MG 1 tablet Orally Once a day; Duration: 30 day(s) Active metFORMIN HCl 1000 MG 1 tablet with a me al Orally Twice a day Active Extra Depth Orthopedic Shoes (1 Pair) with Customized Heat Molded Multidensity Innersoles (3 Pair) as directed Dx: NIDDM/Polyneuropathy (E11.42), Hammertoe Foot Deformity (M20.41,M20.42), Preulcerative Skin Lesion(s) (L85.1 04/15/2020 Active Fenofibrate 160 MG 1 tablet Orally Once a day; Duration: 30 day(s) Active Trulicity 1.5 MG/0.5ML as directed Subcutaneous Active Pioglitazone HCl 30 MG 1 tablet Orally O nce a day Active Multivitamin - 1 tablet Orally Once a day; Duration: 30 day(s) Active HumaLOG 100 UNIT/ML as directed Subcutaneous Active ProAir HFA 108 (90 Base) MCG/ACT 1 puff as needed Inhalation every 4 hrs Not-Tak[place]onieta adorno PriLOSEC Active Vitamin D3 50 MCG (1999) 1 capsule Orally Once a day; Duration: 30 day(s) Active Tresiba FlexTouch 200 UNIT/ML as directed Subcutaneous Not -Taking Aspirin EC Low Dose 81 MG 1 tablet Orally Once a day; Duration: 30 day(s) Active Vitamin B-12 1000 MCG 1 tablet Orally On ce a day; Duration: 30 day(s) Not-Winston ing Immunizations Vaccine Route Administration Date Status Comme nts Influenza Unknown 06/25/2019 Administered Social History Tobacco use other than smoking: Question Answer Notes Are you an other tobacco user? No Problems Problem Type SNOMED Code ICD Code Onset Dates Problem Status W/U Status Risk Notes Problem Type 2 diabetes mellitus with polyneuropathy (E11.42) Active confirmed Plan Of Treatment Pending Test Test Name Order Date [id number] NAIL, 6 OR MORE 01/23/2013 [id number] NAIL, 6 OR MORE 03/27/2013 [id number] SKIN LESIONS, 2 TO 4 03/27/20 13 [id number] SKIN LESIONS, 2 TO 4 01/24/20 13 Insurance Providers Payer Name Payer Address Payer Phone Subscriber Number Group Number Insured Name Patient Relationship to Insured Coverage Start Date Coverage End Date [facility] ([facility] [address] [place] [address] [id number] Damien Cross i Self - patient is the insured Medical (General) History Medical History History ICD Code chicken pox numbness type II diabetes chronic sinusitis Surgical History Surgery Date(Month/Year) knee ACL 1996 shoulder remove arthritis 2010 back surgery
== END 2025-05-13 12:50 | disposition home or self-care (01) ==
PROVIDERS: PCP Nurse Practitioner Family; Visit Provider Nurse Practitioner Family
DX: S91.302A Unspecified open wound, left foot, initial encounter (principal); S91.109A Unspecified open wound of unspecified toe(s) without damage to nail, initial encounter

== ENCOUNTER 2025-05-20 08:26 | Outpatient (AMB) | payer OTHER, SELFPAY ==
--- NOTE | 2025-05-20 08:33 | MHC.OFFVIS ---
Vital Signs 05/20/25 08:39 Height 6 ft 5 in Weight 230 lb BMI 27.3 BP 113/70 Blood Pressure Location Rt brachial Position Sitting Pulse 77 Intake Visit Reasons: New prob-LT shoulder pain Intake Note: Damien is a 59 year old male who presents today as a new patient for an evaluation of left shoulder. Patient was seen by his PCP in January for burning pain in his shoulder, he returned with increased pain and an MRI ordered. He was referred to orthopedics due to MRI results. Patient reports his discomfort has been present for the past 5 months. He states no traumatic injury, however probably work related. He has tried and failed physical therapy. Impression: Anterior glenoid labrum tear with small joint effusion Allergies lisinopril Adverse Reaction (Mild, Verified 05/20/25 08:36) Cough Medication List - Last Reconciled 05/20/25 by Candy Valentine PA-C albuterol sulfate 90 mcg/actuation 2 puffs inhalation Q6H PRN aspirin (Adult Aspirin Regimen) 81 mg PO DAILY atorvastatin 80 mg PO DAILY blood-glucose meter (Tyrosuch Verio Flex Meter) As directed blood-glucose sensor (Dexcom G7 Sensor device) As directed change every 10 days cephalexin 500 mg PO QID 7 days cetirizine (Zyrtec) 10 mg PO DAILY PRN [diabetic shoes extra depth orthopedic shoes ( 1 pair ) with customize heat molded multi density inner soles ( 3 pair) Dispense 1 Sig: As directed DX: And IDDM /polyneuropathy ( E11 0.42 ); hammertoe foot deformity ( M 20.41, and 20.42 ) pre ulcerative skin lesion ( L 85.1 ) Diagnosis ( E11 0.42 ) type 2 diabetes with polyneuropathy] doxazosin 4 mg PO BEDTIME 90 days empagliflozin (Jardiance) 25 mg PO DAILY fenofibrate 160 mg PO DAILY finasteride 5 mg PO .QOD 90 days gabapentin 100 mg PO BID 30 days insulin degludec (Tresiba FlexTouch U-200 insulin) 25 units (0.125 mL) subcut BEDTIME metformin 1,000 mg PO BID 90 days omega-3 acid ethyl esters 2 caps PO BID pen needle, diabetic (BD Clarissa 2nd Gen Pen Needle) As directed twice a day semaglutide (Ozempic) 2 mg (0.75 mL) subcut QWEEK tadalafil 20 mg PO ONCE PRN 30 days tadalafil 10 mg PO DAILY 90 days trazodone 150 mg PO BEDTIME PRN 90 days HPI HPI New prob-LT shoulder pain: Details: 59 yo male presents to the office today for ongoing left shoulder pain since January 2024. He denies injury, states he has pain with reaching behind back and overhead. He also has pain with sleeping. He staets he has done PT with minimal relief. He has a h/o RT RTC repair at [facility] with good relief. He states his pain in the left shoulder continues to limit his ability to perform daily activities which includes working. COUNT INCLUDES THE [facility] Medical History Tubular adenoma Back pain with history of spinal surgery Neuropathy RLS (restless legs syndrome) Tendonitis Hyperparathyroidism Bronchitis LJ (obstructive sleep apnea) Type 2 diabetes mellitus with polyneuropathy Hyperlipidemia LDL goal <100 Hypertriglyceridemia Surgical History Hx of excision of mass History of esophagogastroduodenoscopy (EGD) H/O colonoscopy Hx of removal of cyst (08/17/22) History of anterior cruciate ligament surgery History of rotator cuff surgery Family History Father Colon cancer Mother Breast cancer Diabetes mellitus Sister Brain cancer Sister No problems noted. Sister No problems noted. Sister No problems noted. Brother Substance use disorder Brother No problems noted. Brother No problems noted. Son No problems noted. 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 Current occupational exposures/hazards: No Cognitive needs: No Hearing needs: No Vision needs: No Review of Systems Const All systems reviewed & are unremarkable except as noted in HPI and below Physical Exam Vital Signs: Last Vital Signs Pulse 77 05/20/25 08:39 BP 113/70 05/20/25 08:39 BMI result Body Mass Index 27.3 Const General: cooperative and no acute distress Orientation/consciousness: patient oriented x3 Resp Effort & Inspection: normal respiratory effort and able to speak in complete sentences Cardio Peripheral pulses: Peripheral pulses 2+ throughout Neuro General: patient oriented x3 Extrem Other: Left shoulder is normal to inspection. Forward flexion 90 degrees. External rotation to 80 degrees. Internal rotation to S1. He does have significant tenderness over the AC joint into the proximal biceps tendon. Positive cross-body abduction. Positive Hutchinson's. He is able to activate his rotator cuffs however he does have significant discomfort. Results Reviewed Results Reviewed: XR shoulder LT min 2V 03/07/25 IMPRESSION: Unremarkable examination of the left shoulder. MRI left shoulder without contrast 05/07/25 Comparison: None provided Findings: Heterogeneous irregular anterior glenoid labrum. Transverse fluid signal noted bony base of labrum. Findings likely represent an labral tear. Small joint effusion is identified. Rotator cuff tendons intact without tear. Biceps tendon normally positioned without tear. No acute bony signal abnormality is identified. Impression: Anterior glenoid labrum tear with small joint effusion Assessment & Plan Assessment & Plan (1) Bicipital tendinitis, left shoulder: Code(s): M75.22 - Bicipital tendinitis, left shoulder Category: Medical (2) Tendonitis of left rotator cuff: Code(s): M75.82 - Other shoulder lesions, left shoulder Category: Medical Plan Dr Samaniego was available to see the patient with me today. I discussed the extent of the injury to the patient and options available which include surgical intervention. I explained the procedure in detail along with the length of recovery and rehab course. I explained the risk, benefits and alternatives. Risk including, but not limited to infection, blood clots, bleeding, ongoing pain and stiffness. I answered all their questions and with their understanding they have consented to move forward with Left shoulder arthroscopy with bicep tenotomy and labral debridement with Dr Samaniego. The patient will be booked accordingly. Coding Level of Care Code New Pt Level 4 (16971) Complex EM visit Add On G2211 Diagnoses Bicipital tendinitis, left shoulder M75.22 Tendonitis of left rotator cuff M75.82
[2025-05-20 08:39] VITALS: BP 113/70; PULSE 77; BMI 27.3
--- OUTSIDE RECORDS SUMMARY | 2025-05-20 08:39 | XMS_ITS | Patient Health Record ---
Author Organization [facility] Address [address] [place] [address] Care Team Providers Care Zoology Teacher Name Role Phone Trey Juarez Primary Care Provider Unav ailable Trupti Courtney Unavailable [phone] Reason For Referral No Information Medications Medication [...] Treatment Pending Test Test Name Order Date [id number] NAIL, 6 OR MORE 01/23/2013 [id number] NAIL, 6 OR MORE 03/27/2013 [id number] SKIN LESIONS, 2 TO 4 03/27/20 13 [id number] SKIN LESIONS, 2 TO 4 01/24/20 13 Insurance Providers Payer Name Payer Address Payer Phone Subscriber Number Group Number Insured Name Patient Relationship to Insured Coverage Start Date Coverage End Date [facility] [address] [place] [address] [phone] [id number] Damien Cross i Self - patient is the insured Medical (General) History Medical History History ICD Code chicken pox numbness type II diabetes chronic sinusitis Surgical History Surgery Date(Month/Year) knee ACL 1996 shoulder remove arthritis 2010 back surgery
== END 2025-05-20 10:05 | disposition home or self-care (01) ==
LOC: HO.HOS 08:27
PROVIDERS: PCP Nurse Practitioner Family; Visit Provider Physician Assistant
DX: M75.22 Bicipital tendinitis, left shoulder (principal); M75.82 Other shoulder lesions, left shoulder
CPT/HCPCS: 99214

== ENCOUNTER → 2025-06-05 10:51 | Outpatient (BNV) | payer OTHER, SELFPAY | PROVIDERS: PCP Nurse Practitioner Family; Visit Provider Internal Medicine Cardiovascular Disease | DX: Z01.810 Encounter for preprocedural cardiovascular examination (principal) | CPT/HCPCS: 93010 ==

== ENCOUNTER 2025-06-13 09:48 | Outpatient (AMB) | payer OTHER, SELFPAY ==
[2025-06-13 10:05] VITALS: BP 122/73; BMI 27.3
--- NOTE | 2025-06-13 10:05 | A.OFFVIS_ITS ---
Vital Signs 06/13/25 10:05 Height 6 ft 5 in Weight 230 lb BMI 27.3 BP 122/73 Blood Pressure Location Rt brachial Handedness Right Intake Visit Reasons: Pre-Lt Shld Bicep Tenotomy w/labral debridement Intake Note: Damien is a 59 year old male who presents today for a pre op appointment for his Lt Shld Bicep Tenotomy w/labral debridement 06/19/25 NE. Patient was given pain management form to sign. Allergies lisinopril Adverse Reaction (Mild, Verified 06/13/25 10:05) Cough HPI HPI Pre-Lt Shld Bicep Tenotomy w/labral debridement: Details: Mr. Ruby us a 59-year-old male who presents to the office today for his history and physical examination pending left shoulder arthroscopy with biceps tenotomy and labral debridement with Dr. Samaniego tentatively scheduled on 06/19/2025. The patient reports left shoulder pain since January 2024. He denies injury or trauma. He states he has pain with reaching behind back and with overhead motions. He also has pain with sleeping due to pain. He has tried and failed physical therapy with only minimal relief. 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 He has a h/o right shoulder rotator repair at [facility] with good relief. He would like to proceed with surgical intervention for the left shoulder at this time. [facility] Medical History (Updated 06/05/25 @ 10:15 by Xochilt Stevenson RN) GERD (gastroesophageal reflux disease) Central sleep apnea Cervical radiculopathy Tubular adenoma Back pain with history of spinal surgery Neuropathy RLS (restless legs syndrome) Tendonitis Hyperparathyroidism Bronchitis Type 2 diabetes mellitus with polyneuropathy Hyperlipidemia LDL goal <100 Hypertriglyceridemia Surgical History (Updated 06/05/25 @ 10:10 by Xochilt Stevenson RN) Hx of lumbar discectomy Hx of excision of mass History of esophagogastroduodenoscopy (EGD) H/O colonoscopy Hx of removal of cyst (08/17/22) History of anterior cruciate ligament surgery History of rotator cuff surgery Family History Father Colon cancer Mother Breast cancer Diabetes mellitus Sister Brain cancer Sister No problems noted. Sister No problems noted. Sister No problems noted. Brother Substance use disorder Brother No problems noted. Brother No problems noted. Son No problems noted. 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 Current occupational exposures/hazards: No Cognitive needs: No Hearing needs: No Vision needs: No Review of Systems Const All systems reviewed & are unremarkable except as noted in HPI and below Physical Exam Vital Signs: Last Vital Signs BP 122/73 06/13/25 10:05 BMI result Body Mass Index 27.3 Const General: cooperative and no acute distress Orientation/consciousness: patient oriented x3 Resp Effort & Inspection: normal respiratory effort and able to speak in complete sentences Cardio Peripheral pulses: Peripheral pulses 2+ throughout Neuro General: patient oriented x3 Extrem Other: Left shoulder is normal to inspection. Forward flexion 90 degrees. External rotation to 80 degrees. Internal rotation to S1. He does have significant tenderness over the AC joint into the proximal biceps tendon. Positive cross- body abduction. Positive [place]'s. He is able to activate his rotator cuffs however he does have significant discomfort. Assessment & Plan Assessment & Plan (1) Bicipital tendinitis, left shoulder: Code(s): M75.22 - Bicipital tendinitis, left shoulder Category: Medical (2) Tendonitis of left rotator cuff: Code(s): M75.82 - Other shoulder lesions, left shoulder Category: Medical Plan I discussed the proposed right shoulder arthroscopy for biceps tenotomy and labral debridement procedure in detail and that the goal of the surgery is to relieve pain and improve shoulder function, strength and attempt to prevent further tendon damage or muscle degeneration.? The procedure is typically done arthroscopically, although in some cases an open incision may be needed (biceps tenodesis).? The torn tendons are sutured and reattached to the bone using anchors.? Other necessary procedures (ie.)? Subacromial decompression and debridement may be performed based on intraoperative findings. ? We discussed the risks, benefits and alternatives to the surgery as well as the rehabilitation course.? The risks; which include, but are not limited to infection, bleeding, nerve injury, ongoing pain, swelling, and stiffness, perioperative risk of injury to bones and soft tissues, and blood clots.? Specific risks to the shoulder include stiffness, frozen shoulder, re-tear of the repair, incomplete pain relief, shoulder weakness, delayed healing or nonhealing of the tendon and hardware (anchor) irritation.?? Expected Benefits: Improve shoulder strength and function. Reduce or eliminate pain, restore motion for daily activities and work. Prevention of tear enlargement and/or further muscle degeneration. Improve quality of life and al low return to sports or hobbies.? Alternatives: Continued physical therapy, NSAIDs, cortisone injections and/or activity modifications.? The patient is aware these may manage symptoms but will not repair the torn tendon. Postoperative recovery was also discussed with the patient. Patient will wear a sling for protection for 3 days to 1 week for minor debridement. Should instructions on the sling change based off of intraoperative findings patient may need the sling for up to 6 weeks. The patient will be unable to drive until he is out of the sling and/or while taking narcotic pain medication.? Full recovery may take 6-12 months.? Adherence to the rehabilitation plan is essential for optimal outcome.? Additionally, a physical therapy order has been placed while in the office today with instruction given to the patient to contact physical therapy to make an appointment for one week status post surgery.? Post operative medications were sent to the [facility] pharmacy while in the office t mikayla with instructions for the pharmacy to bring to the PACU on the date of surgery.? Oxycodone 5mg PO Q4-6H PRN, quantity 42 tabs for 7 days. ? The patient has had the opportunity to ask all questions and was satisfied with all answers.? The patient demonstrates understanding of the risks, benefits and alternatives.? The patient understands that there are no guarantees that can be made regarding the outcome. With the patient's understanding they have consented to move forward with the administration of anesthesia, right shoulder arthroscopy for decompression of the spinal glenoid notch with possible biceps tenodesis versus labral repair versus debridement as well as any additional procedures deemed necessary during surgery. The surgical consent form was given to the patient for additional review and signed by the patient with myself as a witness.? Medications: New oxycodone-acetaminophen 5-325 mg Partial Fill upon patient request. pharmacy please bring to PACU 06/19/25 on date of surgery 1 tab PO Q4-6H PRN 42 tabs 0RF pain 7 days Coding Level of Care Code Global (69314) Diagnoses Bicipital tendinitis, left shoulder M75.22 Tendonitis of left rotator cuff M75.82
--- OUTSIDE RECORDS SUMMARY | 2025-06-13 11:09 | XMS_ITS | Patient Health Record ---
Author Organization [facility] Address [address] [place] [address] Care Team Providers Care Forest Fire Prevention Specialist Name Role Phone Trey Juarez Primary Care Provider Unav ailable Trupti Courtney Unavailable [phone] Reason For Referral No Information Medications Medication [...] Treatment Pending Test Test Name Order Date [id number] NAIL, 6 OR MORE 01/23/2013 [id number] NAIL, 6 OR MORE 03/27/2013 [id number] SKIN LESIONS, 2 TO 4 03/27/20 13 [id number] SKIN LESIONS, 2 TO 4 01/24/20 13 Insurance Providers Payer Name Payer Address Payer Phone Subscriber Number Group Number Insured Name Patient Relationship to Insured Coverage Start Date Coverage End Date [facility] ([facility]) [address] [place] [address] [id number] Damien Cross i Self - patient is the insured Medical (General) History Medical History History ICD Code chicken pox numbness type II diabetes chronic sinusitis Surgical History Surgery Date(Month/Year) knee ACL 1996 shoulder remove arthritis 2010 back surgery
== END 2025-06-13 10:42 | disposition home or self-care (01) ==
LOC: HO.HOS 09:49
PROVIDERS: PCP Nurse Practitioner Family; Visit Provider Physician Assistant
DX: M75.22 Bicipital tendinitis, left shoulder (principal); M75.82 Other shoulder lesions, left shoulder
CPT/HCPCS: 99024

== ENCOUNTER 2025-06-19 12:44 | Day surgery (SDC) | payer OTHER, SELFPAY ==
--- NOTE | 2025-06-05 | ECG_ITS ---
Test Reason : preop Blood Pressure : */* mmHG Vent. Rate : 60 BPM Atrial Rate : 60 BPM P-R Int : 170 ms QRS Dur : 98 ms QT Int : 424 ms P-R-T Axes : 30 73 44 degrees QTcB Int : 424 ms Normal sinus rhythm Normal ECG No previous ECGs available Referred By: Ayana Mendez Electronically Signed By: Jeromy Parrish
[2025-06-05 10:16] VITALS: BP 110/69; PULSE 69; RESP 18; O2SAT 98; BMI 27.3
--- NOTE | 2025-06-05 10:21 | P.CONAN_ITS ---
Documented by User: Ayana Mendez NP 06/06/25 14:49 HPI - Anesthesia Eval Consult details Narrative: 59yo M for Left Shoulder Arthroscopy with bicep Tenotomy and Labral debridement, 06/19/25 No recent No CP/SOB with walking at work Central Sleep Apnea: cannot tolerate CPAP GERD: ppi controls DM 2: CGM, FBS ~115, A1C 6.7 on 03/2025 Anesthesia Pre-Procedure Meds Is the patient on any of the following meds?: GLP1/DPP4 and SGLT2 Inhib PMFSH Active Problems Active Problems: All Active Problems Tendonitis of left rotator cuff (Acute) Bicipital tendinitis, left shoulder (Acute) Labral tear of shoulder (Acute) Cervical spondylitis (Acute) Chronic left shoulder pain (Acute) Pain radiating to left shoulder (Acute) Cervical neck pain with evidence of disc disease (Acute) Cervical radiculopathy (Acute) Arm pain, left (Acute) Encounter for routine adult physical exam with abnormal findings (Acute) Wheezing (Acute) Cough (Acute) Sinusitis (Acute) Vitamin D deficiency (Acute) Anemia (Acute) Olecranon bursitis, left elbow (Acute) Cough due to LIZZY inhibitor (Acute) Physical exam (Acute) Shingles (Acute) Uncontrolled diabetes mellitus with hyperglycemia (Acute) BPH loc w urin obs/LUTS (Acute) Erectile dysfunction associated with type 2 diabetes mellitus (Acute) Family history of cancer (Acute) Pilar cyst of scalp (Acute) Elevated PSA (Acute) Dermoid cyst of head (Acute) Screening for colon cancer (Acute) Screening for prostate cancer (Acute) Dyslipidemia (Acute) Hyperkalemia (Acute) Gout of right ankle (Acute) Acute pain of right foot (Acute) Pain and swelling of right ankle (Acute) LJ (obstructive sleep apnea) (Acute) Tubular adenoma (Acute) Type 2 diabetes mellitus with polyneuropathy (Acute) Hyperlipidemia LDL goal <100 (Acute) Hypertriglyceridemia (Acute) Past Medical History Medical History GERD (gastroesophageal reflux disease) Central sleep apnea Cervical radiculopathy Tubular adenoma Back pain with history of spinal surgery Neuropathy RLS (restless legs syndrome) Tendonitis Hyperparathyroidism Bronchitis Type 2 diabetes mellitus with polyneuropathy Hyperlipidemia LDL goal <100 Hypertriglyceridemia Family History Family History Father Colon cancer Mother Breast cancer Diabetes mellitus Sister Brain cancer Sister No problems noted. Sister No problems noted. Sister No problems noted. Brother Substance use disorder Brother No problems noted. Brother No problems noted. Son No problems noted. Family history of problems with anesthesia: No Surgical History Surgical History Hx of lumbar discectomy Hx of excision of mass History of esophagogastroduodenoscopy (EGD) H/O colonoscopy Hx of removal of cyst (08/17/22) History of anterior cruciate ligament surgery History of rotator cuff surgery History of Problems with Anesthesia: No Social History Social History Housing: House Are you a primary care support representative to a significant other at home: No Do you presently have visiting nurse or other home services: No Patient Tobacco Use Status: Former Tobacco user Tobacco use type: Cigarette Cigarettes Per Day: 10 Years Smoked: 13 e-Cigarette/Vaping Use: Never Used Second Hand Smoke Exposure: No Use of substances other than those prescribed or required for medical reasons: Yes Substance Use Type Other:: edibles on occasion Substance Use Frequency: Occasionally Have you been hit, kicked, punched, or otherwise hurt by someone within the past year? 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 Current occupational exposures/hazards: No Cognitive needs: No Hearing needs: No Vision needs: No Meds Allergies Allergy/AdvReac Type Severity Reaction Status Date / Time lisinopril AdvReac Mild Cough Verified 06/19/25 12:57 Home Medications ?Medication ?Instructions ?Recorded ?Confirmed ?Last Taken ?Type aspirin 81 mg tablet,delayed 81 mg PO DAILY 10/07/21 0 06/05/25 12/28/22 History release (Adult Aspirin Regimen) cetirizine 10 mg tablet (Zyrtec) 10 mg PO DAILY PRN Al anika Symptoms 10/07/21 06/05/25 Unknown History blood-glucose meter (OneTouch 02/10/23 05/20/25 Unkno wn History Verio Flex Meter) insulin degludec 200 unit/mL (3 50 unit subcut BEDTIME 06/05/25 06/05/25 Unknown History mL) subcutaneous pen (Tresiba FlexTouch U-200 insulin) omeprazole 20 mg capsule,delayed 20 mg PO DAILY 06/05/25 Unknown History release trazodone 150 mg tablet 150 mg PO BEDTIME insomnia 0 06/05/25 06/05/25 Unknown History Exam Height,Weight and Vital Signs: Height 6 ft 5 in Weight 104.326 kg Last Vital Signs Pulse 69 06/05/25 10:16 Resp 18 06/05/25 10:16 BP 110/69 06/05/25 10:16 Pulse Ox 98 06/05/25 10:16 O2 Del Method Room Air 06/05/25 10:16 Pertinent Lab Results Pertinent Lab Results: Lab Results 06/05/25 Range/Units 11:04 WBC 6.7 (4.8-10.8) X10*3/uL RBC 4.80 (4.60-5.80) X10*6/uL Hgb 13.4 L (14.0-18.0) g/dl Hct 41.1 L (42.0-52.0) % MCV 85.6 (80.0-98.0) fL MCH 27.9 (27.0-33.0) pg MCHC 32.6 (31.0-36.0) g/dl RDW 13.5 (11.0-16.0) % Plt Count 249 (160-400) X10*3/uL MPV 9.8 (9.4-12.4) fL Absolute Nucleated RBC 0.000 (0.0-0.012) X10*3/uL Nucleated RBC % (auto) 0.0 (0.0-0.2) /100WBC Sodium 142 (135-145) mmol/L Potassium 4.3 (3.3-5.1) mmol/L Chloride 107 (96-108) mmol/L Carbon Dioxide 26 (22-29) mmol/L Anion Gap 13 (12-20) BUN 16 (9-16) mg/dL Creatinine 0.96 (0.5-1.4) mg/dL Estim Creat Clear Calc 105.7 Estimated GFR > 60 Random Glucose 91 (60-115) mg/dL Calcium 9.2 (8.4-10.2) mg/dL Narrative Narrative: EKG 05/2025 Vent. Rate : 60 BPM Atrial Rate : 60 BPM P-R Int : 170 ms QRS Dur : 98 ms QT Int : 424 ms P-R-T Axes : 30 73 44 degrees QTcB Int : 424 ms Normal sinus rhythm Normal ECG No previous ECGs available Airway Neck ROM: Limited (some disc disease, no surgery - tightness d/t shoulder) Loose/Missing/Broken Teeth: Yes (crowned front upper, molars extracted) Heart: RRR Lungs: CTAB Assessment and Plan Assessment Anesthesia Assessment: Anesthesia Plan Discussed and PAT Visit Final Anesthetic Review Family History of Problems with Anesthesia: No History of Problems with Anesthesia: No Documented by User: Marycarmen Zuniga MD 06/19/25 13:07 [facility] Past Medical History Medical History GERD (gastroesophageal reflux disease) Central sleep apnea Cervical radiculopathy Tubular adenoma Back pain with history of spinal surgery Neuropathy RLS (restless legs syndrome) Tendonitis Hyperparathyroidism Bronchitis Type 2 diabetes mellitus with polyneuropathy Hyperlipidemia LDL goal <100 Hypertriglyceridemia Family History Family History Father Colon cancer Mother Breast cancer Diabetes mellitus Sister Brain cancer Sister No problems noted. Sister No problems noted. Sister No problems noted. Brother Substance use disorder Brother No problems noted. Brother No problems noted. Son No problems noted. Surgical History Surgical History Hx of lumbar discectomy Hx of excision of mass History of esophagogastroduodenoscopy (EGD) H/O colonoscopy Hx of removal of cyst (08/17/22) History of anterior cruciate ligament surgery History of rotator cuff surgery Social History Social History Housing: House Are you a primary care support representative to a significant other at home: No Do you presently have visiting nurse or other home services: No Patient Tobacco Use Status: Former Tobacco user Tobacco use type: Cigarette Cigarettes Per Day: 10 Years Smoked: 13 e-Cigarette/Vaping Use: Never Used Second Hand Smoke Exposure: No Use of substances other than those prescribed or required for medical reasons: Yes Substance Use Type Other:: edibles on occasion Substance Use Frequency: Occasionally Have you been hit, kicked, punched, or otherwise hurt by someone within the past year? 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 Current occupational exposures/hazards: No Cognitive needs: No Hearing needs: No Vision needs: No Meds Allergies Allergy/AdvReac Type Severity Reaction Status Date / Time lisinopril AdvReac Mild Cough Verified 06/19/25 12:57 Home Medications ?Medication ?Instructions ?Recorded ?Confirmed ?Last Taken ?Type aspirin 81 mg tablet,delayed 81 mg PO DAILY 10/07/21 0 06/05/25 12/28/22 History release (Adult Aspirin Regimen) cetirizine 10 mg tablet (Zyrtec) 10 mg PO DAILY PRN Al lergy Symptoms 10/07/21 06/05/25 Unknown History blood-glucose meter (OneTouch 02/10/23 05/20/25 Unkno wn History Verio Flex Meter) insulin degludec 200 unit/mL (3 50 unit subcut BEDTIME 06/05/25 06/05/25 Unknown History mL) subcutaneous pen (Tresiba FlexTouch U-200 insulin) omeprazole 20 mg capsule,delayed 20 mg PO DAILY 06/05/25 Unknown History release trazodone 150 mg tablet 150 mg PO BEDTIME insomnia 0 06/05/25 06/05/25 Unknown History Exam Airway Mallampati Class: III TM Dist: >3cm Assessment and Plan Final Anesthetic Review NPO: Yes ASA Class: III Final Preanesthetic Review: No Changes in Pt Med Stat, Meds/Allgs Chart Reviewed, Consent Obtained/Reviewed and Anes Risks/Benef Reviewed Patient Risk: Intermediate Procedure Risk: Intermediate Anesthetic Plan Anesthetic Plan: GA, Regional Block and Agree w/ Assess. and Plan Disposition: Standard PACU
[2025-06-05 11:30] LABS: Hematocrit 41.1 % (42.0-52.0); Hemoglobin 13.4 g/dl (14.0-18.0); Mean Corpuscular HGB Conc 32.6 g/dl (31.0-36.0); Mean Corpuscular Hemoglobin 27.9 pg (27.0-33.0); Mean Corpuscular Volume 85.6 fL (80.0-98.0); NRBC Abs Auto 0.000 X10*3/uL (0.0-0.012); NRBC Pct Auto 0.0 /100WBC (0.0-0.2); Platelet Count 249 X10*3/uL (160-400); Red Blood Count 4.80 X10*6/uL (4.60-5.80); White Blood Count 6.7 X10*3/uL (4.8-10.8)
[2025-06-05 12:07] LABS: Anion Gap 13 (12-20); Blood Urea Nitrogen 16 mg/dL (9-16); Calcium 9.2 mg/dL (8.4-10.2); Carbon Dioxide 26 mmol/L (22-29); Chloride 107 mmol/L (96-108); Creatinine Clr Calc Pharmacy 105.7; Estimated Glomerular Filt Rate > 60; Potassium 4.3 mmol/L (3.3-5.1); Sodium 142 mmol/L (135-145)
[2025-06-19] VITALS (9 sets, daily range): BP systolic 107–142; BP diastolic 64–89; PULSE 70–79; RESP 15–20; TEMP 36.4–36.6; O2SAT 94–97
--- NOTE | 2025-06-19 12:44 | MHC.SHP ---
Pre-Procedural Eval Section A - 24 Hr Update-Section A only Date of Service: 06/19/25 The patient is an INPATIENT: No Changes since office visit: No Cold of Flu in the past 2 weeks, No New Medical Problems, No Changes in Medication and No Patient answered all questions The patient has been examined within 24 hours of the surgical procedure. The History & Physical has been completed within 30 days and I have reviewed it.: Yes Section B - Complete if H&P > 30 days Chief Complaint: Bicipital tendinitis, left shoulder,lesions Allergies: Allergies Allergy/AdvReac Type Severity Reaction Status Date / Time lisinopril AdvReac Mild Cough Verified 06/13/25 10:05 Plan I have reviewed the history and physical and performed a pertinent physical examination on my patient. No changes have occurred unless specified. Time Spent With Patient Time: Total time managing care of this patient today ____ minutes.
[2025-06-19] MEDS: Lactated Ringers 1,000 ML 100 ML IVCONT (13:16)
[2025-06-19 13:23] LABS: Glucose, Whole Blood 109 mg/dL (60-115)
--- NOTE | 2025-06-19 13:30 | MHC.SHP ---
Pre-Procedural Eval Section A - 24 Hr Update-Section A only Date of Service: 06/19/25 The patient is an INPATIENT: No Changes since office visit: No Cold of Flu in the past 2 weeks, No New Medical Problems, No Changes in Medication and No Patient answered all questions The patient has been examined within 24 hours of the surgical procedure. The History & Physical has been completed within 30 days and I have reviewed it.: Yes Section B - Complete if H&P > 30 days Chief Complaint: Bicipital tendinitis, left shoulder,lesions Allergies: Allergies Allergy/AdvReac Type Severity Reaction Status Date / Time lisinopril AdvReac Mild Cough Verified 06/19/25 12:57 Plan I have reviewed the history and physical and performed a pertinent physical examination on my patient. No changes have occurred unless specified. Time Spent With Patient Time: Total time managing care of this patient today ____ minutes.
--- NOTE | 2025-06-19 14:39 | P.BOP_ITS ---
Brief Operative Note Date of Service: 06/19/25 Pre-op diagnosis: Left shoulder labral tear Post-op diagnosis: same Procedure: Left shoulder labral debridement and sub-pectoral biceps tenodesis Implants: Arthrex biceps endobutton and interference screw Surgeon: Jeremy Samaniego MD Anesthesia: GETA and regional Was an Stretching Machine Operator used for this Procedure?: Yes Stretching Machine Operator: Genoveva Ashton Estimated blood loss (mL): 25 IV fluids (mL): 500 Pathology: none sent Condition: stable Disposition: PACU
[2025-06-19] MEDS: oxyCODONE HCl Immed Release 5 MG TABLET PO (15:59)
--- NOTE | 2025-06-21 17:39 | P.OP_ITS ---
Operative Note Operative Note Date of Service: 06/19/25 Narrative: Date of Service: 06/19/25 Pre-op diagnosis: Left shoulder labral tear Post-op diagnosis: same Procedure: Left shoulder labral debridement and sub-pectoral biceps tenodesis Implants: Arthrex biceps endobutton and interference screw Surgeon: Jeremy Samaniego MD Anesthesia: GETA and regional Was an Professional Programmer Analyst used for this Procedure?: Yes Professional Programmer Analyst: Genoveva Ashton Estimated blood loss (mL): 25 IV fluids (mL): 500 Pathology: none sent Condition: stable Disposition: PACU Procedure in detail: Patient was brought to the operating room and placed the the beach chair position. All bony prominences were well padded and the limb was prepped and draped in standard sterile fashion. A time out was called to identify proper site, proper procedure and proper surgeon. IV antibiotics per weight were administered. I began by making a posterolateral stab incision with a 15 blade. A blunt trochar was placed into the glenohumeral joint and I insufflated the joint with saline and a 30 degree arthroscope was placed. I established an outside- in anterior portal just distal to the biceps tendon. I then began my inspection of the glenohumeral joint. There was a degenerative SLAP tear at the biceps anchor ( Type 2). There were minimal cartilage changes at the inferior glenoid without humeral head changes. There was no evidence of undersurface rotator cuff tearing The subcapularis was intact. I debrided the loose cartilage of the glenoid and the degenerative labral tearing and performed a biceps tenotomy. I then turned my attention to the axillary fold and made a oblique incision at the level of the inferior border of the pectoralis major. Once through the skin I dissected longitudinally with my finger down to the anterior humerus where I was able to palpate the biceps tendon. I then placed a [place] laterally and while retracting the deltoid used a 90 degree clamp to retrieve the biceps tendon. I then removed approximately 15 mm of tendon and then whipstitched FiberWire into the end of the tendon. I then drilled just at the distal aspect of the bicipital groove a beefpin bicortically. I then over-drilled with a 7.5 Reamer and threaded the distal biceps button. I then passed the button through both cortices flipped it on the back quarter text and dunked the biceps into the medullary canal. I then placed the interference screw in his a tenodesis site. I was satisfied with the tension and stability of the repair. All his her mentation was then removed. Final intra articular photographs were taken and the portals were closed with nylon. Patient was placed in sterile dressing extubated and brought to recovery room in stable condition. There were no known complications.
== END 2025-06-19 17:00 | disposition home or self-care (01) ==
LOC: HO.SSS 12:45
PROVIDERS: Nurse Practitioner; PCP Nurse Practitioner Family; Visit Provider Orthopaedic Surgery
PROC: (CPT 29805; principal; 2025-06-19 16:00)
DX: M75.82 Other shoulder lesions, left shoulder (principal); M75.22 Bicipital tendinitis, left shoulder; M25.512 Pain in left shoulder; M25.412 Effusion, left shoulder; E11.42 Type 2 diabetes mellitus with diabetic polyneuropathy; E78.5 Hyperlipidemia, unspecified; E21.3 Hyperparathyroidism, unspecified; E78.1 Pure hyperglyceridemia; M54.9 Dorsalgia, unspecified; M77.9 Enthesopathy, unspecified; G25.81 Restless legs syndrome; G47.33 Obstructive sleep apnea (adult) (pediatric); J40 Bronchitis, not specified as acute or chronic; Z79.4 Long term (current) use of insulin; Z79.84 Long term (current) use of oral hypoglycemic drugs; Z79.85 Long-term (current) use of injectable non-insulin antidiabetic drugs; Z79.899 Other long term (current) drug therapy; Z79.82 Long term (current) use of aspirin; Z88.8 Allergy status to other drugs, medicaments and biological substances; Z98.890 Other specified postprocedural states; Z87.891 Personal history of nicotine dependence
CPT/HCPCS: 29828; 29823; 36415; 80048; 82947; 85027; 93005; J0131; J0665; J0690; J1100; J1885; J2003; J2250; J2405; J2704

== ENCOUNTER → 2025-06-19 12:44 | Outpatient (BNV) | payer OTHER, SELFPAY | PROVIDERS: PCP Nurse Practitioner Family; Visit Provider Orthopaedic Surgery | DX: S43.432A Superior glenoid labrum lesion of left shoulder, initial encounter (principal); M75.22 Bicipital tendinitis, left shoulder | CPT/HCPCS: 29807; 29828 ==

== ENCOUNTER 2025-06-25 11:36 | Outpatient (AMB) | payer OTHER, SELFPAY ==
[2025-06-25 11:42] VITALS: BMI 27.3
--- NOTE | 2025-06-25 11:42 | A.OFFVIS_ITS ---
Vital Signs 06/25/25 11:42 Height 6 ft 5 in Weight 230 lb BMI 27.3 Intake Visit Reasons: Lt Shld Bicep Tenotomy w/Labral Debridemnt 06/19/25 Intake Note: Damien is a 59 year old right hand dominant male who presents today post- operatively status post Left Shoulder Bicep Tenotomy with Labral Debridement performed by Dr. Samaniego on 06/19/25. patient reports pain has been 6-10 on pain scale. He continues taking [place] and some 325's . Patient had his first PT session today. Denies numbness, tingling. Sutures were removed and steri strips applied. Allergies lisinopril Adverse Reaction (Mild, Verified 06/25/25 11:47) Cough HPI HPI Lt Shld Bicep Tenotomy w/Labral Debridemnt 06/19/25: Details: Damien is a 59 year old right hand dominant male who presents today post- operatively status post Left Shoulder Bicep Tenotomy with Labral Debridement pe rformed by Dr. Samaniego on 06/19/25. patient reports pain has been 6/10 on pain scale. He continues taking [place] and some 325's . Patient had his first PT session today. Denies numbness, tingling. Sutures were removed and steri strips applied. [facility] Medical History GERD (gastroesophageal reflux disease) Central sleep apnea Cervical radiculopathy Tubular adenoma Back pain with history of spinal surgery Neuropathy RLS (restless legs syndrome) Tendonitis Hyperparathyroidism Bronchitis Type 2 diabetes mellitus with polyneuropathy Hyperlipidemia LDL goal <100 Hypertriglyceridemia Surgical History Hx of lumbar discectomy Hx of excision of mass History of esophagogastroduodenoscopy (EGD) H/O colonoscopy Hx of removal of cyst (08/17/22) History of anterior cruciate ligament surgery History of rotator cuff surgery Family History Father Colon cancer Mother Breast cancer Diabetes mellitus Sister Brain cancer Sister No problems noted. Sister No problems noted. Sister No problems noted. Brother Substance use disorder Brother No problems noted. Brother No problems noted. Son No problems noted. 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 Incisions well approximated and well healing. Internal rotation to S1. He does have significant tenderness over the AC joint into the proximal biceps body. Sling intact. No erythema, ecchymosis, evidence of infection noted. Distal sensation intact. Patient is able to make a closed fist and extend all digits of the left hand fully and without difficulty. Range of motion of the left elbow full and intact Assessment & Plan Assessment & Plan (1) Labral tear of shoulder: Code(s): S43.439A - Superior glenoid labrum lesion of unspecified shoulder, initial encounter Category: Medical (2) Tendonitis of left rotator cuff: Code(s): M75.82 - Other shoulder lesions, left shoulder Category: Medical (3) Bicipital tendinitis, left shoulder: Code(s): M75.22 - Bicipital tendinitis, left shoulder Category: Medical Plan 1. Status post left shoulder biceps tenotomy and labral debridement DOS 06/19/2025 Patient appears to be recovering well postoperatively Patient is educated about the typical recovery course, which includes no full active range of motion of the left shoulder away from the body, nonweightbearing in the left upper extremity, and remaining in the sling with activities and while sleeping Patient is advised that he should continue working on range of motion of the left hand, wrist, elbow Patient should continue working with physical therapy with pendulums and gentle passive range of motion of the left shoulder Patient is advised that he should avoid forceful or hyperflexion of the elbow, as well as forceful pronation or supination of the left wrist, as this could lead to failure of the endo button implant in the biceps Sutures Removed today without issue Patient will follow-up in [address] Samaniego for 6 week postoperative appointment, anticipate removal from sling at that time, sooner with any acute concerns Medications: New ibuprofen 800 mg PO Q8H PRN 20 tabs 0RF pain Changed From oxycodone-acetaminophen 5-325 mg Partial Fill upon patient request. pharmacy please bring to PACU 06/19/25 on date of surgery 1 tab PO Q4-6H 7 days PRN 42 tabs 0RF pain To oxycodone-acetaminophen 5-325 mg Partial Fill upon patient request. pharmacy please bring to PACU 06/19/25 on date of surgery 1 tab PO Q4-6H PRN 15 tabs 0RF pain 3 days Coding Level of Care Code Global (25105) Diagnoses Labral tear of shoulder S43.439A Tendonitis of left rotator cuff M75.82 Bicipital tendinitis, left shoulder M75.22
== END 2025-06-25 12:18 | disposition home or self-care (01) ==
LOC: HO.HOS 11:37
PROVIDERS: PCP Nurse Practitioner Family
DX: S43.432A Superior glenoid labrum lesion of left shoulder, initial encounter (principal); M75.82 Other shoulder lesions, left shoulder; M75.22 Bicipital tendinitis, left shoulder
CPT/HCPCS: 99024

== ENCOUNTER 2025-07-26 08:18 | Outpatient (AMB) | payer OTHER, SELFPAY ==
[2025-07-26 08:20] VITALS: BP 110/76; PULSE 72; O2SAT 97; BMI 26.7
--- NOTE | 2025-07-26 08:20 | A.OFFVIS_ITS ---
Vital Signs 07/26/25 08:20 Height 6 ft 5 in Weight 225 lb 8.526 oz BMI 26.7 BP 110/76 Blood Pressure Location Rt brachial Position Sitting Pulse 72 Pulse Source Pulse Oximeter Pulse Oximetry (%) 97 Oxygen Delivery Method Room Air Intake Visit Reasons: Type 2 dm Intake Note: Patient present today for Type 2 Diabetes Mellitus Last Diabetic eye exam: Last exam was on 2023 and has upcoming appt. Last Podiatry Visit: Doesn't have one Random Glucose: 163 mg/dl HgA1C: 6.8% Meterman Required: No Accompanied by: Self / Same As Patient Allergies lisinopril Adverse Reaction (Mild, Verified 07/26/25 08:26) Cough HPI HPI Type 2 dm: Details: Patient is a 59-year-old male with a significant past medical history hyperlipidemia,, obstructive sleep apnea, and uncontrolled type 2 diabetes presenting today for a follow up regarding diabetes.. Endo: Dm-A1c is 6.8. He is currently on Ozempic 2 mg weekly, Jardiance 25 mg daily, metformin 1000 mg twice a day and Tresiba 25 units at bedtime. -he used to be on Actos however this was able to be discontinued with the increased dosage of Ozempic. He was on Trulicity in the past but had to change due to insurance coverage issues. He states that he did tolerate that drug but tolerates Ozempic better. CGM-Dexcom download shows 96% usage, average glucose 155, Gmi 7. Very hyperglycemic 5%, hyperglycemic 21%, in range 74%, hypoglycemic 0%, very h ypoglycemic 0% -he denies any hypoglycemic events. Patient did have left shoulder surgery 5 weeks ago. Still recovering and doing well. -does not have a cable armorer would be interested in a referral. He states that it has been a few years since he has last seen a cable armorer. He does have peripheral neuropathy and states that he knows to check his feet regularly. he has been tested 2 x to confirm t2dm, mother type 2 dm -he is on an Arb and statin. -utd eye CV: Blood pressure today in the office is 110/76. His cholesterol is controlled with atorvastatin 80 mg and fenofibrate. No chest pain or shortness on breath. [facility] Medical History GERD (gastroesophageal reflux disease) Central sleep apnea Cervical radiculopathy Tubular adenoma Back pain with history of spinal surgery Neuropathy RLS (restless legs syndrome) Tendonitis Hyperparathyroidism Bronchitis Type 2 diabetes mellitus with polyneuropathy Hyperlipidemia LDL goal <100 Hypertriglyceridemia Surgical History (Updated 07/26/25 @ 08:27 by TIMBO Heard) History of repair of left rotator cuff Hx of lumbar discectomy Hx of excision of mass History of esophagogastroduodenoscopy (EGD) H/O colonoscopy Hx of removal of cyst (08/17/22) History of anterior cruciate ligament surgery History of rotator cuff surgery Family History Father Colon cancer Mother Breast cancer Diabetes mellitus Sister Brain cancer Sister No problems noted. Sister No problems noted. Sister No problems noted. Brother Substance use disorder Brother No problems noted. Brother No problems noted. Son No problems noted. 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 Current occupational exposures/hazards: No Cognitive needs: No Hearing needs: No Vision needs: No Physical Exam Vital Signs: Last Vital Signs Pulse 72 07/26/25 08:20 BP 110/76 07/26/25 08:20 Pulse Ox 97 07/26/25 08:20 Oxygen Delivery Method Room Air 07/26/25 08:20 BMI result Body Mass Index 26.7 Const Orientation/consciousness: patient oriented x3 Neck Neck: Yes no lymphadenopathy Thyroid: Thyroid normal Carotids: no bruits Resp Auscultation: clear to auscultation bilaterally Cardio Rate: regular rate Rhythm: regular rhythm Heart sounds: S1 normal heart sound present and S2 normal heart sound present Peripheral pulses: dorsalis pedis present Neuro General: patient oriented x3, gait normal and no focal motor deficits Extrem Other: Monofilament sensation absent bilaterally. Vibratory sensation absent bilaterally. Skin intact. General: Yes normal to inspection Results AMB Hemoglobin A1c AMB Hemoglobin A1c 6.8 % Last Edit by TIMBO Heard on 07/26/25 08:53 Results Reviewed Results Reviewed: Laboratory Last Values Glucose (Clinic) 163 mg/dL (60-115) H 07/26/25 08:29 Laboratory Tests 03/31/23 08/06/24 04/08/25 08:09 08:15 08:27 Sodium Potassium Chloride Carbon Dioxide Anion Gap BUN Creatinine Estimated GFR POC Glucose Hgb A1c (Clinic) 6.7 H Triglycerides 59 Cholesterol 130 LDL Cholesterol, Calc 66 HDL Cholesterol 53 CASSIE Antibody <5 06/05/25 06/19/25 11:04 13:19 Sodium 142 Potassium 4.3 Chloride 107 Carbon Dioxide 26 Anion Gap 13 BUN 16 Creatinine 0.96 Estimated GFR > 60 POC Glucose 109 Hgb A1c (Clinic) Triglycerides Cholesterol LDL Cholesterol, Calc HDL Cholesterol CASSIE Antibody Assessment & Plan Assessment & Plan (1) Uncontrolled diabetes mellitus with hyperglycemia: Code(s): E11.65 - Type 2 diabetes mellitus with hyperglycemia Category: Medical Qualifiers: Diabetes mellitus type: type 2 Qualified Code(s): E11.65 - Type 2 diabetes mellitus with hyperglycemia Plan: We will continue current regimen. He is currently controlled. We will follow up in 3 months. Advised to complete labs prior to appointment. Follow up sooner if needed. (2) Hyperlipidemia LDL goal <100: Code(s): E78.5 - Hyperlipidemia, unspecified Category: Medical Plan: Continue current regimen. We will check labs. Orders: Orders AMB Hemoglobin A1c Today E11.42 - Type 2 diabetes mellitus with diabetic polyneuropathy, Z13.9 - Encounter for screening, unspecified Coding Level of Care Code Est Pt Level 4 (77945) Complex EM visit Add On G2211 Diagnoses Uncontrolled type 2 diabetes mellitus with hyperglycemia E11.65 Diabetes mellitus type: type 2 Hyperlipidemia LDL goal <100 E78.5
[2025-07-26 08:33] LABS: Glucose, Whole Blood 163 mg/dL (60-115)
--- OUTSIDE RECORDS SUMMARY | 2025-07-26 08:38 | XMS_ITS | Patient Health Record ---
Author Organization [facility] Address [address] [address] Care Team Providers Care Security Guards Dispatcher Name Role Phone Trey Juarez Primary Care Provider Unav ailable Trupti Courtney Unavailable [phone] Reason For Referral No Information Medications Medication [...] Problem Status W/U Status Risk Notes Problem Polyneuropathy due to type 2 diabetes mellitus (420307910) Type 2 diabetes mellitus with polyneuropathy (E11.42) Active confirmed Plan Of Treatment Pending Test Test Name Order Date [id number] NAIL, 6 OR MORE 01/23/2013 [id number] NAIL, 6 OR MORE 03/27/2013 [id number] SKIN LESIONS, 2 TO 4 03/27/20 13 [id number] SKIN LESIONS, 2 TO 4 01/24/20 13 Insurance Providers Payer Name Payer Address Payer Phone Subscriber Number Group Number Insured Name Patient Relationship to Insured Coverage Start Date Coverage End Date [facility] ([facility] [address] [place] [id number] Damien Cross i Self - patient is the insured Medical (General) History Medical History History ICD Code chicken pox numbness type II diabetes chronic sinusitis Surgical History Surgery Date(Month/Year) knee ACL 1996 shoulder remove arthritis 2010 back surgery
== END 2025-07-26 08:43 | disposition home or self-care (01) ==
LOC: HO.ENCR 08:18
PROVIDERS: PCP Nurse Practitioner Family; Visit Provider Physician Assistant
DX: E11.65 Type 2 diabetes mellitus with hyperglycemia (principal); E78.5 Hyperlipidemia, unspecified; Z13.9 Encounter for screening, unspecified; E11.42 Type 2 diabetes mellitus with diabetic polyneuropathy

== ENCOUNTER → 2025-07-26 08:18 | Outpatient (BNVA) | payer OTHER, SELFPAY | PROVIDERS: PCP Nurse Practitioner Family; Visit Provider Physician Assistant | DX: E11.65 Type 2 diabetes mellitus with hyperglycemia (principal); E11.42 Type 2 diabetes mellitus with diabetic polyneuropathy; E78.5 Hyperlipidemia, unspecified; G47.33 Obstructive sleep apnea (adult) (pediatric); Z79.899 Other long term (current) drug therapy | CPT/HCPCS: 82947; 83036 ==

== ENCOUNTER 2025-08-01 11:11 | Outpatient (AMB) | payer OTHER, SELFPAY ==
--- NOTE | 2025-08-01 11:32 | A.OFFVIS_ITS ---
Intake Visit Reasons: Lt Shld Bicep Tenotomy w/Labral Debridemnt 06/19/25 Intake Note: Damien is a 59 year old right hand dominant male who presents today for a post operative appointment about 6 weeks s/p Left Bicep tenotomy with Labral Debridement 06/19/25. He continues to work with [facility]. Patient r eports that he is doing well, some days are better than others. He has not concerns at this time, but feels like his progress is slow. He has clicking in the shoulder while woring on ROM with physical therapy. Denies numbness and tingling. He is taking Tylenol and Ibuprofen which is not helping. Allergies lisinopril Adverse Reaction (Mild, Verified 08/01/25 11:38) Cough HPI HPI Lt Shld Bicep Tenotomy w/Labral Debridemnt 06/19/25: Details: Damien is a 59 year old right hand dominant male who presents today for a post operative appointment about 6 weeks s/p Left Bicep tenotomy with Labral Debridement 06/19/25. He continues to work with [facility]. Patient reports that he is doing well, some days are better than others. He has no concerns at this time, but feels like his progress is slow. He has clicking in the shoulder while woring on ROM with physical therapy. Denies numbness and tingling. He is taking Tylenol and Ibuprofen which is not helping. [facility] Medical History GERD (gastroesophageal reflux disease) Central sleep apnea Cervical radiculopathy Tubular adenoma Back pain with history of spinal surgery Neuropathy RLS (restless legs syndrome) Tendonitis Hyperparathyroidism Bronchitis Type 2 diabetes mellitus with polyneuropathy Hyperlipidemia LDL goal <100 Hypertriglyceridemia Surgical History (Updated 07/26/25 @ 08:27 by TIMBO Heard) History of repair of left rotator cuff Hx of lumbar discectomy Hx of excision of mass History of esophagogastroduodenoscopy (EGD) H/O colonoscopy Hx of removal of cyst (08/17/22) History of anterior cruciate ligament surgery History of rotator cuff surgery Family History Father Colon cancer Mother Breast cancer Diabetes mellitus Sister Brain cancer Sister No problems noted. Sister No problems noted. Sister No problems noted. Brother Substance use disorder Brother No problems noted. Brother No problems noted. Son No problems noted. 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 Incision clean dry and intact. 4+/5 resisted supination Assessment & Plan Assessment & Plan (1) Labral tear of shoulder: Code(s): S43.439A - Superior glenoid labrum lesion of unspecified shoulder, initial encounter Category: Medical Plan: Status post biceps tenodesis doing well. Continue exercise program with outpatient and home PT. May discontinue sling. No heavy lifting. Follow up 6 weeks. Coding Level of Care Code Global (28919) Diagnoses Labral tear of shoulder S43.439A
== END 2025-08-01 11:54 | disposition home or self-care (01) ==
LOC: HO.HOS 11:12
PROVIDERS: PCP Nurse Practitioner Family; Visit Provider Orthopaedic Surgery
DX: S43.439A Superior glenoid labrum lesion of unspecified shoulder, initial encounter (principal)
CPT/HCPCS: 99024

== ENCOUNTER 2025-08-12 09:12 | Outpatient (REF) | payer OTHER, SELFPAY ==
[2025-08-12 10:11] LABS: Appearance Urine Clear; Glucose Urine UA >=1000 mg/dL (Negative); PH 5.5 (5.0-9.0); Specific Gravity - Urine >= 1.030 (1.005-1.025); UMIC TRIGGER UACC YES
[2025-08-12 10:25] LABS: MANUAL DIFF FLAG NO
[2025-08-12 10:42] LABS: Hematocrit 40.1 % (42.0-52.0); Hemoglobin 13.1 g/dl (14.0-18.0); Imm Gran Abs Auto 0.01 X10*3/uL (0.00-0.03); Imm Gran Pct Auto 0.2 % (0.0-0.4); Lymphocytes Absolute Auto 1.4 X10*3/uL (1.2-4.9); Mean Corpuscular HGB Conc 32.7 g/dl (31.0-36.0); Mean Corpuscular Hemoglobin 27.8 pg (27.0-33.0); Mean Corpuscular Volume 85.1 fL (80.0-98.0); NRBC Abs Auto 0.000 X10*3/uL (0.0-0.012); NRBC Pct Auto 0.0 /100WBC (0.0-0.2); Platelet Count 258 X10*3/uL (160-400); Red Blood Count 4.71 X10*6/uL (4.60-5.80); White Blood Count 4.5 X10*3/uL (4.8-10.8)
[2025-08-12 10:55] LABS: Microalbum/Creatinine Ratio Ur 5.6 ug/mg cr (<30)
[2025-08-12 10:58] LABS: Alanine Aminotransferase 28 U/L (0-40); Albumin Level 4.6 g/dL (3.5-5.0); Alkaline Phosphatase 51 U/L (39-117); Anion Gap 14 (12-20); Aspartate Amino Transferase 27 U/L (5-37); Blood Urea Nitrogen 15 mg/dL (9-16); Calcium 9.3 mg/dL (8.4-10.2); Carbon Dioxide 25 mmol/L (22-29); Chloride 107 mmol/L (96-108); Cholesterol 138 mg/dL (<200); Estimated Glomerular Filt Rate > 60; HDL Cholesterol 46 mg/dL (>40); Potassium 4.1 mmol/L (3.3-5.1); Sodium 142 mmol/L (135-145); Total Protein 7.0 g/dL (6.5-8.0); Triglycerides 73 mg/dL (<150)
== END 2025-08-12 09:13 | disposition home or self-care (01) ==
LOC: HO.HMGCLDS 09:12
PROVIDERS: PCP Nurse Practitioner Family; Visit Provider Nurse Practitioner Family
DX: Z12.5 Encounter for screening for malignant neoplasm of prostate (principal); E11.65 Type 2 diabetes mellitus with hyperglycemia; R97.20 Elevated prostate specific antigen [PSA]
CPT/HCPCS: 36415; 80053; 80061; 81001; 82043; 82570; 83036; 84153; 85025

== ENCOUNTER 2025-08-13 07:47 | Outpatient (AMB) | payer OTHER, SELFPAY ==
--- OUTSIDE RECORDS SUMMARY | 2025-08-13 07:54 | XMS_ITS | Patient Health Record ---
Author Organization [facility] Address [address] [place] [address] Care Team Providers Care Orthotic Practitioner Name Role Phone Trey Juarez Primary Care Provider Unav ailable Trupti Courtney Unavailable [phone] Reason For Referral No Information Medications Medication [...] Polyneuropathy due to type 2 diabetes mellitus (117579233) Type 2 diabetes mellitus with polyneuropathy (E11.42) Active confirmed Plan Of Treatment Pending Test Test Name Order Date [id number] NAIL, 6 OR MORE 01/23/2013 [id number] NAIL, 6 OR MORE 03/27/2013 [id number] SKIN LESIONS, 2 TO 4 03/27/20 13 [id number] SKIN LESIONS, 2 TO 4 01/24/20 13 Insurance Providers Payer Name Payer Address Payer Phone Subscriber Number Group Number Insured Name Patient Relationship to Insured Coverage Start Date Coverage End Date [facility] ([facility]) [address] [place] [id number] [phone] [id number] Damien Cross i Self - patient is the insured Medical (General) History Medical History History ICD Code chicken pox numbness type II diabetes chronic sinusitis Surgical History Surgery Date(Month/Year) knee ACL 1996 shoulder remove arthritis 2010 back surgery
[2025-08-13 07:59] VITALS: BP 112/60; PULSE 86; RESP 16; O2SAT 97; BMI 26.3
--- NOTE | 2025-08-13 07:59 | A.OFFPC_ITS ---
Vital Signs 08/13/25 07:59 Height 6 ft 5 in Weight 222 lb BMI 26.3 BP 112/60 Blood Pressure Location Lt brachial Position Sitting Respiration 16 Pulse 86 Pulse Source Pulse Oximeter Pulse Oximetry (%) 97 Oxygen Delivery Method Room Air Intake Visit Reasons: PE Grave Digger Required: No Accompanied by: Self / Same As Patient Allergies lisinopril Adverse Reaction (Mild, Verified 08/13/25 08:46) Cough Medication List - Last Reconciled 08/13/25 by OCTAVIANO Bonner- aspirin (Adult Aspirin Regimen) 81 mg PO DAILY atorvastatin 80 mg PO DAILY blood-glucose meter ([employer] Verio Flex Meter) As directed blood-glucose sensor ([employer] G7 Sensor device) As directed change every 10 days cetirizine (Zyrtec) 10 mg PO DAILY PRN [diabetic shoes extra depth orthopedic shoes ( 1 pair ) with customize heat molded multi density inner soles ( 3 pair) Dispense 1 Sig: As directed DX: And IDDM /polyneuropathy ( E11 0.42 ); hammertoe foot deformity ( M 20.41, and 20.42 ) pre ulcerative skin lesion ( L 85.1 ) Diagnosis ( E11 0.42 ) type 2 diabetes with polyneuropathy] doxazosin 4 mg PO BEDTIME 90 days empagliflozin (Jardiance) 25 mg PO DAILY fenofibrate 160 mg PO DAILY finasteride 5 mg PO .QOD 90 days ibuprofen 800 mg PO Q8H PRN insulin degludec (Tresiba FlexTouch U-200 insulin) 50 units subcut BEDTIME metformin 1,000 mg PO BID 90 days omega-3 acid ethyl esters 2 caps PO BID omeprazole 20 mg PO DAILY oxycodone-acetaminophen 5-325 mg 1 tab PO Q4-6H PRN 3 days pen needle, diabetic (BD Clarissa 2nd Gen Pen Needle) As directed twice a day semaglutide (Ozempic) 2 mg (0.75 mL) subcut QWEEK tadalafil 20 mg PO ONCE PRN 30 days tadalafil 10 mg PO DAILY 90 days trazodone 150 mg PO BEDTIME Tobacco use date assessed: 08/13/25 Dental Screening Dental Screen Date: 08/13/25 HPI PE HPI Details History of Present Illness The patient is a 59-year-old male presenting with a physical exam and post- surgical issues related to his left shoulder and new symptoms in his left wrist and hand. He underwent left shoulder surgery on June 20, which included left biceps tendon anatomy and labral debridement. Post-surgery, he has been experiencing significant pain in the left shoulder and is currently undergoing physical therapy. The patient reports more significant issues with his left wrist and hand, including extensive swelling and difficulty with hand grasp. The swelling is particularly pronounced in the thenar region and fingers, and he experiences pain without severe intensity. He has a positive radial pulse and can supinate and pronate without difficulty, although his grasp remains weak. The patient has a history of diabetes and is under the care of an processing technician. His recent laboratory results are stable, and he regularly sees a urologist for PSA and prostate checks. Preventative care measures include an up-to-date colon cancer screening. Health Maintenance - Colon cancer screening is up to date - Regular PSA and prostate checks with [facility] Social History Review of Systems - Musculoskeletal: Reports pain in left shoulder post-surgery, swelling and pain in left wrist and hand, difficulty with hand grasp - Cardiovascular: Denies chest pain - Respiratory: Denies shortness of breat h - Gastrointestinal: Denies abdominal rashel n, blood in stool, constipation, diarrhea - Psychiatric: Denies suicidal ideation or homicidal ideation Physical Exam General: Cooperative, healthy appearing, comfortable, no acute distress and well developed Orientation: Patient oriented x3 Limitations: No limitations Head: Normal to inspection Ears: Hearing grossly normal bilaterally Nose: Normal external nose present Face and sinus: Normal facial exam Eyes: Appearance normal, both eyes and all related structures Neck: Normal visual inspection and Yes full ROM Respiratory: Normal respiratory effort and able to speak in complete sentences. Clear to auscultation bilaterally Cardiovascular: Regular rate and rhythm. Normal S1 and S2 GI: Normal to inspection. Soft to palpation and nontender : Testicles without masses/lesions and no hernias appreciated Skin: No rashes or lesions noted Neuro: Patient oriented x3 Extremities: Extensive swelling in left wrist and hand, difficulty with hand grasp. Positive radial pulse noted, can supinate and pronate without difficulty, grasp is weak. Entire left hand is quite puffy, especially in the thenar region and fingers. Results Plan 1. Post-Surgical Pain In Left Shoulder The patient is experiencing significant pain in the left shoulder following surgery for left biceps tendon anatomy and labral debridement. He is currently undergoing physical therapy to address this issue. 2. Swelling And Pain In Left Wrist And H and The patient reports extensive swelling and pain in the left wrist and hand, with difficulty in hand grasp. Occupational therapy is recommended to address these symptoms. 3. Diabetes The patient has a history of diabetes and is under the care of an processing technician. His recent laboratory results are stable. Discussion Notes I discussed with the patient the importance of continuing physical therapy for his left shoulder and recommended occupational therapy for his left wrist and hand to improve function and reduce swelling. We also reviewed his stable diabetes management and the need for regular follow-ups with his processing technician and urologist. Patient Instructions - Continue with physical therapy for the left shoulder. - Attend occupational therapy sessions f or the left wrist and hand. - Follow up with the processing technician for diabetes management. - Maintain regular appointments with the urologist for PSA and prostate checks. [facility] Medical History GERD (gastroesophageal reflux disease) Central sleep apnea Cervical radiculopathy Tubular adenoma Back pain with history of spinal surgery Neuropathy RLS (restless legs syndrome) Tendonitis Hyperparathyroidism Bronchitis Type 2 diabetes mellitus with polyneuropathy Hyperlipidemia LDL goal <100 Hypertriglyceridemia Surgical History History of repair of left rotator cuff Hx of lumbar discectomy Hx of excision of mass History of esophagogastroduodenoscopy (EGD) H/O colonoscopy Hx of removal of cyst (08/17/22) History of anterior cruciate ligament surgery History of rotator cuff surgery Family History Father Colon cancer Mother Breast cancer Diabetes mellitus Sister Brain cancer Sister No problems noted. Sister No problems noted. Sister No problems noted. Brother Substance use disorder Brother No problems noted. Brother No problems noted. Son No problems noted. 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 1. Little interest or pleasure in doing things: not at all 2. Feeling down, depressed, or hopeless: not at all 3. Trouble falling or staying asleep, or sleeping too much: not at all 4. Feeling tired or having little energy: not at all 5. Poor appetite or overeating: not at all 6. Feeling bad about yourself - or that you are a failure or have let yourself or your family down: not at all 7. Trouble concentrating on things, such as reading the newspaper or watching television: not at all 8. Moving or speaking so slowly that other people could have noticed. Or the opposite - being so fidgety or restless that you have been moving around a lot more than usual: not at all 9. Thoughts that you would be better off or of hurting yourself in some way: not at all Total score: 0 Depression Screening Interpretation: Negative Depression Screening Done: Yes 63757 - PHQ-9 Billing: Yes Source: Developed by Drs. Jose Vee, Graciela Gracia, Aldo Silverman and colleagues, with an educational misha from [employer]. Thrive Questionnaire Date Thrive assessed: 01/28/25 I am a: Patient What is your living situation today?: I have a steady place to live Within the past 12 months, did the food you bought not last and you didn't have the money to get more?: Never true Within the past 12 months, did you worry whether your food would run out before you got money to buy more?: Never true Do you have trouble paying for medicines?: No Do you have trouble getting transportation to medical appointments?: No Do you have trouble paying your heating and electricity bill?: No Do you have trouble taking care of your child, family member or friend?: No Do you have trouble with day-to-day activities such as bathing, preparing meals, shopping, managing finances, etc.?: No Are you currently unemployed and looking for a job?: No Are you interested in more education?: No Please select the resources that you would like help with: None Currently or been in a relationship where the following occur: No concerns reported THRIVE Score: 0 CASSIE-7 AMB Questionnaire CASSIE-7 Date CASSIE - 7 assessed: 08/13/25 Feeling nervous, anxious, or on edge: 0 = Not at all Not being able to stop or control worryin = Not at all Worrying too much about different things: 0 = Not at all Trouble relaxin = Not at all Being so restless that it is hard to sit still: 0 = Not at all Becoming easily annoyed or irritable: 0 = Not at all Feeling afraid as if something awful might happen: 0 = Not at all Total CASSIE-7 score (0-4 normal; 5-9 mild; 10-14 moderate; 15-21 severe): 0 Source: Developed by Drs. Jose Vee, Graciela Gracia, Aldo Silverman and colleagues, with an educational misha from [employer]. CASSIE-7 Assessment Billing CASSIE-7 Assessment Tool: CASSIE-7 Assessment 97471 Physical exam (Primary Care) Vital Signs: Last Vital Signs Pulse 86 08/13/25 07:59 Resp 16 08/13/25 07:59 BP 112/60 08/13/25 07:59 Pulse Ox 97 08/13/25 07:59 Oxygen Delivery Method Room Air 08/13/25 07:59 BMI result Body Mass Index 26.3 Tobacco/Smoking Status: Tobacco use Status Tobacco use date assessed 08/13/25 08/13/25 08:01 Patient Tobacco Use Status Former Tobacco user 08/13/25 08:01 Tobacco use type Cigarette 08/13/25 08:01 e-Cigarette/Vaping Use Never Used 08/13/25 08:01 PHQ-9: PHQ-9 Score PHQ-9: Total score 0 08/13/25 08:05 Depression Screening Interpretation: Negative Thrive Assessment: Date of Thrive Assessment Date Thrive assessed 01/28/25 08/13/25 08:01 Currently or been in a relationship where the following occur: No concerns reported Coding Level of Care Code Est Pt Level 3 (99112) Est Pt Prev Care 40-64y(26902) Diagnoses Weakness of left hand R29.898 Wrist pain M25.539 Encounter for routine adult physical exam with abnormal findings Z00.01 Additional Codes CASSIE-7 Assessment Billing - CASSIE-7 Assessment Tool: CASSIE-7 Assessment 71354 ([id number]) PHQ-9 - 37369 - PHQ-9 Billing: Yes ([id number]) Assessment & Plan Assessment & Plan (1) Weakness of left hand: Code(s): R29.898 - Other symptoms and signs involving the musculoskeletal system Category: Medical (2) Wrist pain: Code(s): M25.539 - Pain in unspecified wrist Category: Medical (3) Encounter for routine adult physical exam with abnormal findings: Code(s): Z00.01 - Encounter for general adult medical examination with abnormal findings Category: Medical Plan . Orders: Orders OT Evaluation and Treatment Today M25.539 - Pain in unspecified wrist, R29.898 - Other symptoms and signs involving the musculoskeletal system
== END 2025-08-13 08:40 | disposition home or self-care (01) ==
LOC: HO.HMCC 07:48
PROVIDERS: PCP Nurse Practitioner Family; Visit Provider Nurse Practitioner Family
DX: Z00.01 Encounter for general adult medical examination with abnormal findings (principal); M25.532 Pain in left wrist; R29.898 Other symptoms and signs involving the musculoskeletal system

== ENCOUNTER → 2025-08-13 07:47 | Outpatient (BNVA) | payer OTHER, SELFPAY | PROVIDERS: PCP Nurse Practitioner Family; Visit Provider Nurse Practitioner Family | DX: Z00.01 Encounter for general adult medical examination with abnormal findings (principal); E11.9 Type 2 diabetes mellitus without complications; G89.18 Other acute postprocedural pain; M25.512 Pain in left shoulder; R29.898 Other symptoms and signs involving the musculoskeletal system; M25.539 Pain in unspecified wrist | CPT/HCPCS: 96127 ==

== ENCOUNTER 2025-08-14 09:13 | Outpatient (REF) | payer OTHER, SELFPAY ==
--- NOTE | ~2025-08-14 | US_ITS ---
EXAMINATION: US TRIPLEX UPPER EXTREMITY, LEFT CLINICAL INFORMATION: Upper extremity pain and swelling. Both biceps tendon surgery May 2025 COMPARISON: None available. TECHNIQUE: Color-flow triplex imaging with spectral analysis and compression Doppler was performed on the left upper extremity. FINDINGS: The left internal jugular, subclavian, and axillary veins are patent and free of thrombus. Spectral doppler waveforms are normal. The brachial, basilic, cephalic, radial, and ulnar veins are patent and compressible. US/US venous duplex UE LT IMPRESSION: No evidence of deep venous thrombosis involving the left upper extremity. Electronically signed by: Delmis De La Cruz MD 08/14/2025 10:21 AM EDT
== END 2025-08-14 09:14 | disposition home or self-care (01) ==
LOC: HO.US 09:13
PROVIDERS: PCP Nurse Practitioner Family; Visit Provider Physician Assistant
DX: M75.82 Other shoulder lesions, left shoulder (principal); M75.22 Bicipital tendinitis, left shoulder; M79.89 Other specified soft tissue disorders
CPT/HCPCS: 93971

== ENCOUNTER → 2025-08-14 09:15 | Outpatient (BNV) | payer OTHER, SELFPAY | PROVIDERS: PCP Nurse Practitioner Family; Visit Provider Radiology Diagnostic Radiology | DX: R22.32 Localized swelling, mass and lump, left upper limb (principal); M79.662 Pain in left lower leg | CPT/HCPCS: 93971 ==

== ENCOUNTER 2025-08-26 08:42 | Outpatient (AMB) | payer OTHER, SELFPAY ==
--- NOTE | 2025-08-26 08:46 | A.OFFVIS_ITS ---
Intake Visit Reasons: Lt Shld Bicep Tenotomy w/Labral Debridemnt 06/19/25 Intake Note: Damien is a 59 year old right hand dominant male who presents today for a follow up appointment status post Left Bicep tenotomy with Labral Debridement done on 06/19/[address] Samaniego. Patient states that he has been having a lot for pain in his shoulder, wrist and hand for about 10 weeks and it is getting worse. He states that he is unable to move his hand and not being able to close his hand. IMPRESSION: No evidence of deep venous thrombosis involving the left upper extremity. Allergies lisinopril Adverse Reaction (Mild, Verified 08/26/25 09:04) Cough HPI HPI Lt Shld Bicep Tenotomy w/Labral Debridemnt 06/19/25: Details: Mr. Ruby this is a 59-year-old male status post left shoulder biceps tenodesis with labral debridement performed by Dr. Samaniego on 06/19/2025. Patient presented to the office this morning as a walk-in patient stating that he has continued left shoulder pain, left wrist pain and left hand swelling. He denies any new injury or trauma. He has not been taking any anti- inflammatories. He has been working with physical therapy. [facility] Medical History GERD (gastroesophageal reflux disease) Central sleep apnea Cervical radiculopathy Tubular adenoma Back pain with history of spinal surgery Neuropathy RLS (restless legs syndrome) Tendonitis Hyperparathyroidism Bronchitis Type 2 diabetes mellitus with polyneuropathy Hyperlipidemia LDL goal <100 Hypertriglyceridemia Surgical History History of repair of left rotator cuff Hx of lumbar discectomy Hx of excision of mass History of esophagogastroduodenoscopy (EGD) H/O colonoscopy Hx of removal of cyst (08/17/22) History of anterior cruciate ligament surgery History of rotator cuff surgery Family History Father Colon cancer Mother Breast cancer Diabetes mellitus Sister Brain cancer Sister No problems noted. Sister No problems noted. Sister No problems noted. Brother Substance use disorder Brother No problems noted. Brother No problems noted. Son No problems noted. 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 No signs of infection. External rotation to end range. Able to perform wrist flexion and extension with pain and stiffness. Lacking about 2-3 cm from making a closed fist due to edema and stiffness. NVI. Psych Appearance: grossly normal Mental Status: mental status grossly normal Attitude: cooperative Assessment & Plan Assessment & Plan (1) Labral tear of shoulder: Code(s): S43.439A - Superior glenoid labrum lesion of unspecified shoulder, initial encounter Category: Medical (2) Wrist pain: Code(s): M25.539 - Pain in unspecified wrist Category: Medical (3) Swelling of joint, hand, left: Code(s): M25.442 - Effusion, left hand Category: Medical Plan Mr. Ruby this is a 59-year-old male status post left shoulder biceps tenodesis with labral debridement performed by Dr. Samaniego on 06/19/2025. Patient presented to the office this morning as a walk-in patient stating that he has continued left shoulder pain, left wrist pain and left hand swelling. He denies any new injury or trauma. He has not been taking any anti- inflammatories. He has been working with physical therapy. Dr. Samaniego was available to see the patient with me in the office today in a collaborative treatment plan was created. Patient is having extreme difficulty at night with sleep due to the left hand throbbing from the edema. A prescription for Lyrica 75 mg to be taken p.o. at bedtime was sent to the pharmacy to assist with sleeping. Additionally, the patient has edema in the left hand contributing to pain and stiffness. Therefore, a prescription for diclofenac 75 mg p.o. b.i.d. was sent to the pharmacy. Patient underwent an ultrasound earlier last week which was negative for DVT in the upper extremity. Patient was reassured and he will follow up at his normally scheduled follow up appointment, sooner if needed. Orders: Orders OT Evaluation and Treatment Today M25.442 - Effusion, left hand Medications: New pregabalin (Lyrica) 75 mg PO BEDTIME 7 caps 0RF 7 days diclofenac sodium 75 mg PO BID PRN 60 tabs 0RF pain 30 days Coding Level of Care Code Global (21449) Diagnoses Labral tear of shoulder S43.439A Wrist pain M25.539 Swelling of joint, hand, left M25.442
--- OUTSIDE RECORDS SUMMARY | 2025-08-26 09:13 | XMS_ITS | Patient Health Record ---
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 Name Role Phone Trey Juarez Primary Care Provider Unav ailable Trupti Courtney Unavailable [phone] Reason For Referral No Information Medications Medication [...] Polyneuropathy due to type 2 diabetes mellitus ([id number]) Type 2 diabetes mellitus with polyneuropathy (E11.42) Active confirmed Plan Of Treatment Pending Test Test Name Order Date [id number] NAIL, 6 OR MORE 01/23/2013 [id number] NAIL, 6 OR MORE 03/27/2013 [id number] SKIN LESIONS, 2 TO 4 03/27/20 13 [id number] SKIN LESIONS, 2 TO 4 01/24/20 13 Insurance Providers Payer Name Payer Address Payer Phone Subscriber Number Group Number Insured Name Patient Relationship to Insured Coverage Start Date Coverage End Date [facility] [address] [place] [id number] Damien Cross i Self - patient is the insured Medical (General) History Medical History History ICD Code chicken pox numbness type II diabetes chronic sinusitis Surgical History Surgery Date(Month/Year) knee ACL 1996 shoulder remove arthritis 2010 back surgery
== END 2025-08-26 09:32 | disposition home or self-care (01) ==
LOC: HO.HOS 08:42
PROVIDERS: PCP Nurse Practitioner Family; Visit Provider Physician Assistant
DX: S43.439A Superior glenoid labrum lesion of unspecified shoulder, initial encounter (principal); M25.539 Pain in unspecified wrist; M25.442 Effusion, left hand
CPT/HCPCS: 99024

== ENCOUNTER 2025-09-16 10:06 | Outpatient (AMB) | payer OTHER, SELFPAY ==
--- NOTE | 2025-09-16 10:08 | A.OFFVIS_ITS ---
Intake Visit Reasons: Lt Shld Bicep Tenotomy w/Labral Debridemnt 06/19/25 Intake Note: Damien is a 59 year old male who presents today for a follow up of his Left Shoulder about 3 months s/p Left Biceps tenotomy with labral debridement 06/19/25. Patient was seen for some increased pain with [facility] where he was given Lyrica to help sleeping at night. Patient reports that he is not improving, the lyrica did not offer relief. He explains that he is still having limited use of the hand which includes significant swelling. Continues to work with OT at [facility] Allergies lisinopril Adverse Reaction (Mild, Verified 08/26/25 09:04) Cough HPI HPI Lt Shld Bicep Tenotomy w/Labral Debridemnt 06/19/25: Details: Damien is a 59 year old male who presents today for a follow up of his Left S houlder about 3 months s/p Left Biceps tenotomy with labral debridement 06/19/25. Patient was seen for some increased pain with [facility] where he was given Lyrica to help sleeping at night. Patient reports that he is not improving, the lyrica did not offer relief. He explains that he is still having limited use of the hand which includes significant swelling. Continues to work with OT at [facility]. Essentially he started developing hand pain about a month after his surgery. He has had a hard time making a fist and feels like his hand gets discolored and he has started hand therapy. He has been working with him for about 2 weeks but it is not improving. He is frustrated and does not understand why this is happening. He does not describe any focal numbness or tingling but it is more global hand pain. He tried Lyrica and gabapentin but they were not. COUNT INCLUDES THE [facility] Medical History GERD (gastroesophageal reflux disease) Central sleep apnea Cervical radiculopathy Tubular adenoma Back pain with history of spinal surgery Neuropathy RLS (restless legs syndrome) Tendonitis Hyperparathyroidism Bronchitis Type 2 diabetes mellitus with polyneuropathy Hyperlipidemia LDL goal <100 Hypertriglyceridemia Surgical History History of repair of left rotator cuff Hx of lumbar discectomy Hx of excision of mass History of esophagogastroduodenoscopy (EGD) H/O colonoscopy Hx of removal of cyst (08/17/22) History of anterior cruciate ligament surgery History of rotator cuff surgery Family History Father Colon cancer Mother Breast cancer Diabetes mellitus Sister Brain cancer Sister No problems noted. Sister No problems noted. Sister No problems noted. Brother Substance use disorder Brother No problems noted. Brother No problems noted. Son No problems noted. 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 He has good strong resisted supination and his shoulder pain is minimal with 90 degrees of passive abduction and 45 degrees and passive external rotation. His left hand is notable for some mild palmar discoloration compared to the left. Radial pulses 2+. He has firing is EPL/FDP/IO Assessment & Plan Assessment & Plan (1) Labral tear of shoulder: Code(s): S43.439A - Superior glenoid labrum lesion of unspecified shoulder, initial encounter Category: Medical Plan: Patient is doing well status post left shoulder arthroscopy with biceps tenodesis. Continue home exercise program and gentle and progressive strengthening. (2) Type I CRPS (complex regional pain syndrome): Code(s): G90.50 - Complex regional pain syndrome I, unspecified Category: Medical Plan: Patient appears to have CRPS type 1. He is very uncomfortable. This is worrisome to him given his work. I think he would benefit from seeing Dr. Alvarado in pain management. I will facilitate this. He will see me back in 4 weeks' time. Continue occupational therapy. Coding Level of Care Code Global (74800) Diagnoses Labral tear of shoulder S43.439A Type I CRPS (complex regional pain syndrome) G90.50
== END 2025-09-16 10:52 | disposition home or self-care (01) ==
LOC: HO.HOS 10:07
PROVIDERS: PCP Nurse Practitioner Family; Visit Provider Orthopaedic Surgery
DX: S43.439A Superior glenoid labrum lesion of unspecified shoulder, initial encounter (principal); G90.50 Complex regional pain syndrome I, unspecified
CPT/HCPCS: 99024

== ENCOUNTER 2025-10-10 08:51 | Outpatient (REF) | payer OTHER, SELFPAY ==
--- OUTSIDE RECORDS SUMMARY | 2025-10-10 09:32 | XMS_ITS | Patient Health Record ---
Author Organization [facility] Address [address] [place] [address] Care Team Providers Care Medical Assistant Ob Gyn Name Role Phone Trey Juarez Primary Care Provider Unav ailable Trupti Courtney Unavailable [phone] Reason For Referral No Information Medications Medication [...] Polyneuropathy due to type 2 diabetes mellitus (368251980) Type 2 diabetes mellitus with polyneuropathy (E11.42) Active confirmed Plan Of Treatment Pending Test Test Name Order Date [id number] NAIL, 6 OR MORE 01/23/2013 [id number] NAIL, 6 OR MORE 03/27/2013 [id number] SKIN LESIONS, 2 TO 4 03/27/20 13 [id number] SKIN LESIONS, 2 TO 4 01/24/20 13 Insurance Providers Payer Name Payer Address Payer Phone Subscriber Number Group Number Insured Name Patient Relationship to Insured Coverage Start Date Coverage End Date [facility] ([facility]) [address] [place] [id number] Damien Cross i Self - patient is the insured Medical (General) History Medical History History ICD Code chicken pox numbness type II diabetes chronic sinusitis Surgical History Surgery Date(Month/Year) knee ACL 1996 shoulder remove arthritis 2010 back surgery
[2025-10-10 10:10] LABS: Appearance Urine Clear; Glucose Urine UA >=1000 mg/dL (Negative); PH 5.5 (5.0-9.0); Specific Gravity - Urine >= 1.030 (1.005-1.025); UMIC TRIGGER UACC YES
[2025-10-10 11:06] LABS: Prostate Specific Antigen 7.79 ng/mL (<0.05-4.0)
== END 2025-10-10 08:52 ==
LOC: HO.HMGCLDS 08:51
PROVIDERS: PCP Nurse Practitioner Family; Visit Provider Urology
DX: N40.1 Benign prostatic hyperplasia with lower urinary tract symptoms (principal); E11.69 Type 2 diabetes mellitus with other specified complication; N52.1 Erectile dysfunction due to diseases classified elsewhere; E11.65 Type 2 diabetes mellitus with hyperglycemia; Z12.5 Encounter for screening for malignant neoplasm of prostate
CPT/HCPCS: 36415; 81001; 84153; 84403; 84443

== ENCOUNTER 2025-10-11 10:00 | Outpatient (AMB) | payer OTHER, SELFPAY ==
--- NOTE | 2025-10-11 10:07 | MHC.OFFVIS ---
Vital Signs 10/11/25 10:09 Height 6 ft 5 in Weight 234 lb BMI 27.7 BP 111/65 Blood Pressure Location Lt brachial Position Sitting Respiration 16 Pulse 82 Pulse Source Pulse Oximeter Pulse Oximetry (%) 98 Oxygen Delivery Method Room Air Intake Visit Reasons: Complex regional pain syndrome Knowledge Management Consultant Required: No Accompanied by: Spouse Allergies lisinopril Adverse Reaction (Mild, Verified 10/11/25 10:10) Cough Medication List - Last Reconciled 10/11/25 by Divya Foster LPN aspirin (Adult Aspirin Regimen) 81 mg PO DAILY atorvastatin 80 mg PO DAILY blood-glucose meter ([employer] MultiMediauch Verio Flex Meter) As directed blood-glucose sensor (DexMobile Shareholder G7 Sensor device) As directed change every 10 days cetirizine (Zyrtec) 10 mg PO DAILY PRN [diabetic shoes extra depth orthopedic shoes ( 1 pair ) with customize heat molded multi density inner soles ( 3 pair) Dispense 1 Sig: As directed DX: And IDDM /polyneuropathy ( E11 0.42 ); hammertoe foot deformity ( M 20.41, and 20.42 ) pre ulcerative skin lesion ( L 85.1 ) Diagnosis ( E11 0.42 ) type 2 diabetes with polyneuropathy] doxazosin 4 mg PO BEDTIME 90 days empagliflozin (Jardiance) 25 mg PO DAILY fenofibrate 160 mg PO DAILY finasteride 5 mg PO .QOD 90 days insulin degludec (Tresiba FlexTouch U-200 insulin) 25 units (0.125 mL) subcut BEDTIME metformin 1,000 mg PO BID 90 days omega-3 acid ethyl esters 2 caps PO BID omeprazole 20 mg PO DAILY pen needle, diabetic (BD Clarissa 2nd Gen Pen Needle) As directed twice a day semaglutide (Ozempic) 2 mg (0.75 mL) subcut QWEEK tadalafil 10 mg PO DAILY 90 days trazodone 150 mg PO BEDTIME HPI HPI Complex regional pain syndrome: Details: History of Present Illness The patient is a 59-year-old male presenting for evaluation and management of severe left hand pain and swelling. His symptoms began in July, approximately a month and a half after he underwent a left shoulder labrum and biceps surgery on June 19. The onset coincided with the removal of his surgical sling, and the condition is thought to be secondary to a perioperative nerve injury. The pain is described as relentless, rated 10/10 throughout the day, and has severely impacted his sleep and daily activities, rendering him unable to function normally. 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 He has been undergoing physical and occupational therapy for approximately six weeks. He was prescribed Lyrica by orthopedics in August but found no relief from it. Past trials of gabapentin and tramadol were also ineffective. A prior ultrasound ruled out a blood clot. His past medical history is significant for diabetes mellitus with associated neuropathy and sleep apnea. Pain Description - Onset: Pain and swelling began in the left hand in July, about a month and a half after a shoulder surgery in May. - Location: The pain involves the entire left hand, including all fingers and the wrist, affecting both the dorsal and palmar surfaces. - Quality: The pain is described as relentless, excruciating, throbbing, and stabbing. - Severity: Rated as 10/10 all day. - Associated Symptoms: Accompanied by significant swelling, redness, and occasional purplish discoloration of the hand. - Exacerbating Factors: Pain is worse at night when trying to sleep and is excruciating upon active movement, especially when trying to form a fist. - Alleviating Factors: Keeping the hand open and still provides some minor, though incomplete, relief. - Interference: The pain significantly disrupts sleep and normal daily activities, including his ability to work. Physical Exam - Left Upper Extremity: Inspection reveals significant swelling of the palmar and dorsal aspects of the hand. - Skin: Erythema and purplish discoloration are present on the hand. - There are no nail or hair changes. - Surgical scars are noted in the axilla, on the upper arm, and on the back. - Neurologic: Sensation to light touch is intact, and there is no allodynia. - Pain is induced by active motion, particularly with attempts to make a fist. - Musculoskeletal: Biceps strength is reduced post-operatively but is not acutely worsened from his baseline rehabilitative state. Results - Ultrasound: A prior ultrasound of the arm was negative for blood clots. - In-office Ultrasound: A [id number] ultrasound examining the nerves of the arm showed no obvious nerve lesions. Pain Management: - Analgesia: The patient reports a constant pain level of 10/10. - He has had no relief from previous trials of Lyrica, gabapentin, and tramadol. - Activities of Daily Living: The pain significantly interferes with his ability to work, perform daily activities, and sleep. - Adverse Effects: He reports no side effects from his previous trials of Lyrica or gabapentin. - Affect: The pain is causing significant sleep disruption, waking him frequently throughout the night. - Aberrant Drug Related Behaviors: There are no signs of aberrant drug-related behaviors. [facility] Medical History GERD (gastroesophageal reflux disease) Central sleep apnea Cervical radiculopathy Tubular adenoma Back pain with history of spinal surgery Neuropathy RLS (restless legs syndrome) Tendonitis Hyperparathyroidism Bronchitis Type 2 diabetes mellitus with polyneuropathy Hyperlipidemia LDL goal <100 Hypertriglyceridemia Surgical History History of repair of left rotator cuff Hx of lumbar discectomy Hx of excision of mass History of esophagogastroduodenoscopy (EGD) H/O colonoscopy Hx of removal of cyst (08/17/22) History of anterior cruciate ligament surgery History of rotator cuff surgery Family History Father Colon cancer Mother Breast cancer Diabetes mellitus Sister Brain cancer Sister No problems noted. Sister No problems noted. Sister No problems noted. Brother Substance use disorder Brother No problems noted. Brother No problems noted. Son No problems noted. 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 Current occupational exposures/hazards: No Cognitive needs: No Hearing needs: No Vision needs: No Physical Exam Vital Signs: Last Vital Signs Pulse 82 10/11/25 10:09 Resp 16 10/11/25 10:09 BP 111/65 10/11/25 10:09 Pulse Ox 98 10/11/25 10:09 Oxygen Delivery Method Room Air 10/11/25 10:09 BMI result Body Mass Index 27.7 Assessment & Plan Assessment & Plan (1) Type I CRPS (complex regional pain syndrome): Code(s): G90.50 - Complex regional pain syndrome I, unspecified Category: Medical Plan Plan Patient was informed and verbally consented to the use of an ambient scribe for clinic note documentation during this visit. 1. Complex Regional Pain Syndrome (Crps) Of The Left Upper Limb - The patient's symptoms are highly suggestive of CRPS, likely triggered by his recent shoulder surgery. - The condition was described as a nervous system issue involving abnormal signaling. - A multi-modal treatment approach will be initiated. - Medication: Will prescribe gabapentin, starting at 300 mg at night and titrating up as tolerated to a target of 300 mg TID and 600 mg at night (total 1200mg/day) to find an effective dose, as prior trials were at low dosages. - Therapy: Continue with occupational therapy (OT), which is crucial for desensitization and retraining the brain. - Procedure: Will request insurance authorization for a left stellate ganglion block to help reset the autonomic nervous system. - Future Considerations: If these measures are unsuccessful, a nerve conduction study may be considered in the future. Discussion Notes I had a detailed discussion with the patient and his regarding the diagnosis of Complex Regional Pain Syndrome (CRPS). I explained that this condition is a dysfunction of the nervous system, which I likened to a 'software' problem rather than a 'hardware' problem, likely triggered by his recent surgery. I outlined a multi-modal treatment plan, emphasizing that we need to address this from different angles. This includes continuing occupational therapy to retrain the brain, restarting gabapentin at a higher, escalating dose since he tolerated it without side effects previously, and proceeding with a left stellate ganglion block. I explained that the block is an injection in the neck designed to reset the misfiring autonomic nerves and that it may require a series of injections to be effective. Potential transient side effects of the block, such as a warm arm, a hoarse voice, and a teary eye, were also discussed. The patient expressed his desire to proceed aggressively with treatment due to the severity of his symptoms and the impact on his ability to work. He and his understood the plan and were in agreement to move forward with the medication titration, ongoing OT, and the stellate ganglion block, for which we will seek insurance authorization. Patient Instructions - I have sent a prescription for gabapentin to your pharmacy. - Start by taking 300 mg at bedtime for a few days. - You will then slowly increase the dose as we discussed. - Continue increasing the dose until it helps your pain or you notice a side effect that you do not like. - It is very important that you continue to attend your occupational therapy (OT) appointments. - Our office will work on getting insurance approval for a procedure called a stellate ganglion block. - This is an injection in your neck to help 'reset' the nerves causing your pain. - We will contact you to schedule this once it is approved. Medications: New gabapentin 300 mg PO DAILY 120 caps 0RF Coding Level of Care Code New Pt Level 4 (89990) Diagnoses Type I CRPS (complex regional pain syndrome) G90.50
[2025-10-11 10:09] VITALS: BP 111/65; PULSE 82; RESP 16; O2SAT 98; BMI 27.7
--- OUTSIDE RECORDS SUMMARY | 2025-10-11 11:11 | XMS_ITS | Patient Health Record ---
Author Organization [facility] Address [address] [place] [address] Care Team Providers Care Lean Manufacturing Coordinator Name Role Phone Trey Juarez Primary Care Provider Unav ailable Trupti Courtney Unavailable [phone] Reason For Referral No Information Medications Medication [...] Polyneuropathy due to type 2 diabetes mellitus (012522184) Type 2 diabetes mellitus with polyneuropathy (E11.42) Active confirmed Plan Of Treatment Pending Test Test Name Order Date [id number] NAIL, 6 OR MORE 01/23/2013 [id number] NAIL, 6 OR MORE 03/27/2013 [id number] SKIN LESIONS, 2 TO 4 03/27/20 13 [id number] SKIN LESIONS, 2 TO 4 01/24/20 13 Insurance Providers Payer Name Payer Address Payer Phone Subscriber Number Group Number Insured Name Patient Relationship to Insured Coverage Start Date Coverage End Date [facility] ([facility]) [address] [place] [id number] Damien Cross i Self - patient is the insured Medical (General) History Medical History History ICD Code chicken pox numbness type II diabetes chronic sinusitis Surgical History Surgery Date(Month/Year) knee ACL 1996 shoulder remove arthritis 2010 back surgery
== END 2025-10-11 10:47 | disposition home or self-care (01) ==
LOC: HO.PMC 10:01
PROVIDERS: PCP Nurse Practitioner Family; Referring Provider Orthopaedic Surgery; Visit Provider Internal Medicine
DX: G90.522 Complex regional pain syndrome I of left lower limb (principal)
CPT/HCPCS: 99204

== ENCOUNTER 2025-10-22 11:00 | Outpatient (RCR) | payer OTHER, SELFPAY ==
--- NOTE | 2025-06-25 09:59 | MHC.PT.EP ---
[facility] [place] [facility] [place] [facility] [place] [facility] [address] Mateo Rjoas [address] [phone] F: [phone] F: [phone] F: [phone] F: [phone] Physical Therapy Plan of Care Date of Evaluation: 06/25/25 Date of Surgery: 06/19/25 Diagnosis: s/p LEFT shoulder bicep tenotomy with labral debridement (DOS: 06/19/25) RS Assessment: Damien is a pleasant, motivated 59 y.o. male who is referred to PT by Genoveva Ashton PA-C of [facility], surgery performed by Dr. Jeremy Samaniego MD with Dx of s/p LEFT shoulder bicep tenotomy with labral debridement (DOS: 06/19/25). Patient impairments include swelling in L UE, impaired skin integrity at incision sites, limited ROM, L shoulder and elbow weakness. Patient current functional limitations are dressing, bathing, cooking, cleaning, working, lifting, reaching due to surgery. Patient will benefit from skilled PT to address aforementioned impairments and functional limitations to meet established goals. Frequency and Duration: The patient will be seen 2x/week for 6 weeks Short Term Goals: 3 weeks Damien demonstrates consistency and independence with HEP to self manage symptoms and reduce swelling. Damien is consistent with use of ice packs to reduce L UE swelling. Assistant Dean Of Students Goals: 6 weeks Damien is weaned off sling slowly without c/o symptoms. Damien presents with increased L elbow flexion 120 degrees to restore mobility for dressing and eating. Treatment Plan: Modalities to reduce pain, spasms and effusion. Manual therapy to restore motion and function. Therapeutic exercise to improve strength and flexibility. Neuromuscular re-education for posture and balance. Therapeutic activities to return to functional activities of daily living. Electronically signed by: Jesus Vu, PT, DPT Please sign and return to therapist. Thank you for your referral.
--- NOTE | 2025-10-22 15:04 | MHC.PT.DC ---
[facility] [place] Office [place] Office [place] Office [address] Mateo Rojas [address] [facility] [phone] F: [phone] F: [phone] F: [phone] F: [phone] Physical Therapy Discharge Report Diagnosis: Left shoulder labral debridement and sub-pectoral biceps tenodesis (biceps endobutton and interference screw) (DOS: 06/19/25) RS Date of Surgery: 06/19/25 Date of Evaluation: 06/25/25 Date of Discharge: 10/22/25 Treatments to Date: 24 Cancellations to Date: No Shows to Date: Discharge Status: Improved Function Independent with HEP Discharge Summary: Damien has been an active and motivated participant in his therapy in and out of the clinic and we are in agreement with DC at this time as he is I with his home program, has met many of his therapeutic goals, and is improved of his function and pain regarding his L shoulder. His recovery is complicated by the development of CRPS of his L. Electronically signed by: Abdias Carrion PT. Please sign and return to therapist. Thank you for your referral.
== END 2025-10-22 15:05 | disposition home or self-care (01) ==
LOC: HO.PT 11:00
PROVIDERS: PCP Nurse Practitioner Family; Visit Provider Physician Assistant
DX: M75.82 Other shoulder lesions, left shoulder (principal); M75.22 Bicipital tendinitis, left shoulder; S43.432D Superior glenoid labrum lesion of left shoulder, subsequent encounter; X58.XXXD Exposure to other specified factors, subsequent encounter
CPT/HCPCS: 97014; 97110; 97140; 97161; 97535